=== PATIENT | female | born 1985 | race Caucasian/White ===

== ENCOUNTER 2019-02-09 19:57 | Emergency (ER) | payer MEDICAID, OTHER ==
[~2019-02-09] VITALS: Ht 167.6 cm; Wt 111.1 kg
[~2019-02-09 19:57] MED LIST: AMOX500C2; CODE1CAP36; HYDR-3720 PO; MTC10T; NAPR-248; NAPR220T76 PO; OMEP20CA6
--- OUTSIDE RECORDS SUMMARY | 2019-02-09 20:03 | XMS REPORT | CCD ---
Author Author LISETH RENTERIA Organization Unknown Address [address] [facility] [address] [place], [place] [id number] Care Team Providers Care Supervisory Clerk Name Role Phone VIOLETA ALONZO, ABUNDIO JACOBS Attphys Vital Signs Vital Sign Value Unit Date/Time Recent/Initial? Weight Measured 320 lbs 09/04/2015 11:17 Initial VS Height 66 in 09/04/2015 11:17 Initial VS BMI (Body Mass Index) 51.65 kg/m^2 09/04/2015 11:17 Initial VS BSA (Body Surface Area) 2.6 m^2 09/04/2015 11:17 Initial VS BP Systolic 99 mmHg 09/10/2015 09:50 Initial VS BP Diastolic 42 mmHg 09/10/2015 09:50 Initial VS Respiratory Rate 18 bpm 09/10/2015 09:50 Initial VS Heart Rate 98 bpm 09/10/2015 09:50 Initial VS O2 % BldC Oximetry 95 % 09/10/2015 09:50 Initial VS BP Systolic 110 mmHg 09/10/2015 10:10 Most Recent VS BP Diastolic 59 mmHg 09/10/2015 10:10 Most Recent VS Respiratory Rate 17 bpm 09/10/2015 10:10 Most Recent VS Heart Rate 85 bpm 09/10/2015 10:10 Most Recent VS O2 % BldC Oximetry 96 % 09/10/2015 10:10 Most Recent VS Allergies Allergy Code Allergy Type Reaction Status No Known Drug Allergies 0 No known drug allergies Active Procedures Procedure Code Procedure Type Date Neuroplasty and/or transposition; ulnar nerve [place] elbow; (-[place] [address] CPT 09/10/2015 BEDSIDE GLUCOSE 22537781 SNOMED CT 09/10/2015 History of Immunizations Immunization Code Date DTP 05/22/1984 DTP 07/17/1984 DTP 07/07/1987 DTP 02/02/1988 OPV 02 05/22/1984 OPV 02 07/17/1984 OPV 02 07/07/1987 OPV 02 02/02/1988 MMR 03 07/07/1987 MMR 03 04/05/1994 Td (adult), adsorbed 03/13/2000 influenza, split (incl. purified surface antigen) 15 09/29/2009 Novel [id number], preservative-free 126 09/29/2009 Problems Problem Code Start Date Resolved Date Status HISTORY OF HYSTERECTOMY, SUPRACERVICAL V8802 Active Results BEDSIDE GLUCOSE - Collect Date/Time: 09/10/2015 07:23 Test Name Code Test Result Test Units Test Ref Range GLUCOSE POCT 111 MG/DL L=70 H=100 Active Medications Medication Code Dose Units Frequency Route Modification Start Date/Time CEFAZOLIN [ANCEF] IV 3GM (PREDEFINED) 263220 X1 IVPB 09/10/2015 06:00 ~~ CEFAZOLIN (ANCEF) INJ : 10 GM VIAL 675387 4132 MG ~~ NACL 0.9%: 100 ML BAG 339775 100 ML ~~ REFRIGERATE!!! [id number] 1 EA Medications Administered During Visit Unknown or Not Available. Encounters Encounter Diagnosis Diagnosis Code Start Date Lesion of ulnar nerve, left upper limb G5622 09/10/2015 Social History Smoking Status Code Start Date End Date Current every day smoker 301804391 Patient Decision Aids Patient Decision Aid HAND SURGERY; AFTER THE PROCEDURE Discharge Instructions You were admitted to [facility] on 09/10/2015 with a principal diagnosis of Lesion of ulnar nerve, left upper limb. You had the following procedures done: REVISE ULNAR NERVE AT ELBOW You were discharged from [facility] on 09/10/2015. Should you have any questions prior to discharge, please contact a member of your healthcare team. If you have left the hospital and have any questions, please contact your primary care physician. Chief Complaint and Reason For Visit Chief Complaint Date of Onset ORT ULNAR NERVE TRANSPOSITION LEFT Function Status Unknown or Not Available. Plan of Care Unknown or Not Available. Referral/Transition of Care Unknown or Not Available.
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
--- OUTSIDE RECORDS SUMMARY | 2019-02-09 20:03 | XMS REPORT ---
Author Author FRANNY FARLEY Organization [facility] Address [address] [place] [address] Care Team Providers Care Supervisor Shaving And Splitting Name Role Phone FRANNY FARLEY Unavailable PROBLEMS Type Condition ICD9-CM Code TOD83-SK Code Onset Dates Condition Status SNOMED Code Problem Posttraumatic stress disorder F43.10 Active 68736790 Problem Major depression, recurrent F33.9 Active 68285159 Problem Type 2 diabetes mellitus without complication, without long-term current use of insulin E11.9 Active 556375039 Problem Heroin use disorder, severe, 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 Active 23963829 Problem Panic disorder F41.0 Active 764494794 Problem Schizophrenia F20.9 Active 24401442 Problem Dyslexia R48.0 Active 44598076 Problem Schizoaffective disorder, bipolar type F25.0 Active 38867806 ALLERGIES No Information ENCOUNTERS Encounter Location Date Diagnosis [place] [id number] [place] [address] 53756- 0014 Oct, [facility] [place] [facility] [id number] [place] [address] 13151- 1895 Sep, [facility] [place] [facility] [id number] [place] [address] 39166- 6369 Jul, [facility] [place] [facility] [id number] [place] [address] 54587- 2583 24 Jul, 2018 [facility] [place] [facility] [address] 7[address]86- 7707 Jul, Schizophrenia F20.9 ; Posttraumatic stress disorder F43.10 ; Panic disorder F41.0 and Heroin use disorder, severe, 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 [facility] [place] [facility] [id number] [place] [address] 01936- 3064 Jun, History of lumbar laminectomy Z98.890 and Back pain at L4- L5 level M54.5 [place] [id number] [place] [address] 43447- 5714 May, Contusion of abdominal wall, initial encounter S30.1XXA [place] [id number] [place] [address] 31010- 9033 Apr, Schizophrenia F20.9 ; Posttraumatic stress disorder F43.10 ; Panic disorder F41.0 and Heroin use disorder, severe, 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 [place] [id number] [place] [address] 73566- 5152 February, [place] [address] 99376- 2618 February, Schizophrenia F20.9 ; Posttraumatic stress disorder F43.10 ; Panic disorder F41.0 ; Heroin use disorder, severe, 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 and BMI 40.0-44.9, adult Z68.41 [place] [id number] [place] [address] 40017- 6394 Jan, [address] [address]- 8498 Jan, Type 2 diabetes mellitus without complication, without long- term current use of insulin E11.9 [place] [id number] [place] [address] 85599- 4768 Jan, Major depression, recurrent F33.9 [place] [id number] [place] [address] 98727- 3464 Jan, Establishing care with new doctor, encounter for Z76.89 ; Major depression, recurrent F33.9 ; Posttraumatic stress disorder F43.10 ; Schizoaffective disorder, bipolar type F25.0 ; Heroin use disorder, severe, 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 ; Unexplained weight loss R63.4 and Type 2 diabetes mellitus without complication, without long-term current use of insulin E11.9 [place] [id number] [place] [address] 82421- 4739 Nov, [place] [address] [place] [address] 74294- 9483 Oct, Schizophrenia F20.9 ; Posttraumatic stress disorder F43.10 ; Panic disorder F41.0 and Heroin use disorder, severe, 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 [place] [address] [place] [address] 51181- 1122 Jul, Schizophrenia F20.9 [place] [id number] [place] [address] 99459- 5833 Jun, Posttraumatic stress disorder F43.10 ; Schizophrenia F20.9 ; Panic disorder F41.0 ; Dyslexia R48.0 and Heroin use disorder, severe, 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 [place] [id number] [place] [address] 06365- 1763 May, Posttraumatic stress disorder F43.10 ; Schizoaffective disorder, bipolar type F25.0 ; Panic disorder F41.0 ; Dyslexia R48.0 and Heroin use disorder, severe, 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 [place] [id number] [place] [address] 47761- 1313 Apr, Posttraumatic stress disorder F43.10 ; Schizoaffective disorder, bipolar type F25.0 ; Panic disorder F41.0 ; Dyslexia R48.0 and Heroin use disorder, severe, 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 [place] [address] [place] [address] 26433- 6533 Mar, Schizophrenia F20.9 ; Posttraumatic stress disorder F43.10 and Major depression, recurrent F33.9 [place] [id number] [place] [address] 20770- 9601 February, [place] [id number] [place] [address] 42811- 2274 Oct, Major depression, recurrent F33.9 [place] [id number] [place] [address] 18136- 1978 Oct, Major depression, recurrent F33.9 ; Schizophrenia F20.9 and Posttraumatic stress disorder F43.10 [facility] [place] [facility] [id number] [place] [address] 16093- 4169 Sep, Posttraumatic stress disorder F43.10 ; Schizophrenia F20.9 and Major depressive disorder, recurrent episode with anxious distress F33.9 [facility] [place] [facility] [id number] [place] [address] 06715- 2631 Sep, Schizophrenia F20.9 [facility] [place] [facility] [id number] [place] [address] 44230- 5487 Sep, [facility] [place] [facility] [id number] [place] [address] 13491- 5180 Aug, Posttraumatic stress disorder F43.10 ; Schizophrenia F20.9 and Major depression, recurrent F33.9 [facility] [place] [facility] [id number] [place] [address] 46579- 1574 Jun, Posttraumatic stress disorder F43.10 ; Schizophrenia F20.9 and Major depression, recurrent F33.9 [facility] [place] [facility] [id number] [place] [address] 31731- 6599 May, Posttraumatic stress disorder F43.10 ; Schizophrenia F20.9 and Major depression, recurrent F33.9 [facility] [place] [facility] [address], [place] [address]- 0485 Apr, Posttraumatic stress disorder F43.10 ; Schizophrenia F20.9 and Major depression, recurrent F33.9 [facility] [place] [facility] [address] [place] [address] 95576- 4133 February, Posttraumatic stress disorder F43.10 ; Schizophrenia F20.9 and Major depression, recurrent F33.9 [facility] [place] [facility] [address] [place] [address] 74450- 3007 Jan, Posttraumatic stress disorder F43.10 ; Schizophrenia F20.9 and Major depression, recurrent F33.9 [facility] [place] [facility] [address] [address]- 4642 Nov, Posttraumatic stress disorder F43.10 and Schizophrenia F20.9 [facility] [place] [facility] [address], [place] [address]- 2114 Sep, [facility] [place] [facility] [address] [address]- 2314 Aug, Posttraumatic stress disorder F43.10 and Schizophrenia F20.9 [facility] [place] [facility] [address] [place] [address] 770952- 4669 Jul, Posttraumatic stress disorder F43.10 and Schizophrenia F20.9 [facility] [place] [facility] [id number] [place] [address] 401870- 0475 Jul, [facility] [place] [facility] [address] [place] [address] 34779- 3548 May, [facility] [place] [facility] [id number] [place] [address] 20470- 8862 May, PTSD (post-traumatic stress disorder) 309.81 ; Depressive disorder, not elsewhere classified 311 and Paranoid schizophrenia 295.30 [facility] [place] [facility] [address] [place] [address] 14573- 1226 Apr, Paranoid schizophrenia 295.30 ; Depressive disorder, not elsewhere classified 311 and PTSD (post-traumatic stress disorder) 309.81 [facility] [place] [facility] [address] [address]- 6248 Mar, [facility] [place] [facility] [address] [place] [address] 62474040- 9531 Mar, Paranoid schizophrenia 295.30 ; Panic disorder with 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 ; PTSD (post-traumatic stress disorder) 309.81 and Depressive disorder, not elsewhere classified 311 [facility] [place] [facility] [address] [address] 2918 Nov, [facility] [place] [facility] [address], [place] [address]- 6082 Apr, [facility] [place] [facility] [address], [place] [address]- 6472 Jan, [facility] [place] [facility] [address], [place] [address]- 1510 Oct, [facility] [place] [facility] [address], [place] [address]- 0952 Sep, [facility] [place] [facility] [address] [place] [address] 33878- 0185 Sep, [facility] [place] [facility] [address], [place] [address]- 3219 Aug, [facility] [place] [facility] [address] [place] [address] 33049- 9672 Aug, [facility] [place] [facility] [address], [place] [address]- 3581 February, [facility] [place] [facility] [address], [place] [address]- 0931 Nov, IMMUNIZATIONS No Known Immunizations SOCIAL HISTORY Never Assessed REASON FOR VISIT Routine nurse call PLAN OF CARE VITAL SIGNS MEDICATIONS [...]
--- OUTSIDE RECORDS SUMMARY | 2019-02-09 20:03 | XMS REPORT ---
Author Author FRANNY FARLEY Organization [facility] IN [facility] Address [address] [place] [address] Care Team Providers Care Underground Supervisor Name Role Phone FRANNY FARLEY Unavailable PROBLEMS Type Condition ICD9-CM Code JLQ11-SL Code Onset Dates Condition Status SNOMED Code Problem Posttraumatic stress disorder F43.10 Active 17942113 Problem Major depression, recurrent F33.9 Active 36841063 Problem Type 2 diabetes mellitus without complication, without long-term current use of insulin E11.9 Active 741512176 Problem Heroin use disorder, severe, 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 Active 20729294 Problem Panic disorder F41.0 Active 222057004 Problem Schizophrenia F20.9 Active 95851923 Problem Dyslexia R48.0 Active 92669167 Problem Schizoaffective disorder, bipolar type F25.0 Active 41000691 ALLERGIES No Information ENCOUNTERS Encounter Location Date Diagnosis [facility] [id number] [place] [address] 37984- 8395 Oct, [facility] [id number] [place] [address] 37513- 2598 Aug, [facility] [id number] [place] [address] 81981- 3112 Jul, [facility] [id number] [place] [address] 74385- 0200 24 Jul, 2018 [facility] [id number] [place] [address] 28865- 4333 Jul, Schizophrenia F20.9 ; Posttraumatic stress disorder F43.10 ; Panic disorder F41.0 and Heroin use disorder, severe, 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 [facility] [id number] [place] [address] 36514- 4828 Jun, History of lumbar laminectomy Z98.890 and Back pain at L4- L5 level M54.5 [place] [id number] [place] [address] 26691- 1493 May, Contusion of abdominal wall, initial encounter S30.1XXA [place] [facility] [id number] [place] [address] 28348- 0190 Apr, Schizophrenia F20.9 ; Posttraumatic stress disorder F43.10 ; Panic disorder F41.0 and Heroin use disorder, severe, 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 [place] [id number] [place] [address] 37459- 9810 February, [place] [address] 05470- 7949 February, Schizophrenia F20.9 ; Posttraumatic stress disorder F43.10 ; Panic disorder F41.0 ; Heroin use disorder, severe, 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 and BMI 40.0-44.9, adult Z68.41 [place] [id number] [place] [address] 41995- 6648 Jan, [address] 96122- 6470 Jan, Type 2 diabetes mellitus without complication, without long- term current use of insulin E11.9 [facility] [facility] [id number] [place] [address] 81655- 5574 Jan, Major depression, recurrent F33.9 [place] [id number] [place] [address] 48998- 3179 Jan, Establishing care with new doctor, encounter for Z76.89 ; Major depression, recurrent F33.9 ; Posttraumatic stress disorder F43.10 ; Schizoaffective disorder, bipolar type F25.0 ; Heroin use disorder, severe, 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 ; Unexplained weight loss R63.4 and Type 2 diabetes mellitus without complication, without long-term current use of insulin E11.9 [place] [id number] [place] [address] 48288- 1786 Nov, [place] [id number] [place] [address] 78685- 3447 Oct, Schizophrenia F20.9 ; Posttraumatic stress disorder F43.10 ; Panic disorder F41.0 and Heroin use disorder, severe, 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 [place] [id number] [place] [address] 90746- 7414 Jul, Schizophrenia F20.9 [place] [id number] [place] [address] 17246- 0011 Jun, Posttraumatic stress disorder F43.10 ; Schizophrenia F20.9 ; Panic disorder F41.0 ; Dyslexia R48.0 and Heroin use disorder, severe, 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 [place] [id number] [place] [address] 43218- 2555 May, Posttraumatic stress disorder F43.10 ; Schizoaffective disorder, bipolar type F25.0 ; Panic disorder F41.0 ; Dyslexia R48.0 and Heroin use disorder, severe, 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 [place] [id number] [place] [address] 55590- 9523 Apr, Posttraumatic stress disorder F43.10 ; Schizoaffective disorder, bipolar type F25.0 ; Panic disorder F41.0 ; Dyslexia R48.0 and Heroin use disorder, severe, 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 [place] [id number] [place] [address] 15755- 5763 Mar, Schizophrenia F20.9 ; Posttraumatic stress disorder F43.10 and Major depression, recurrent F33.9 [place] [id number] [place] [address] 47397- 4792 February, [place] [id number] [place] [address] 07656- 6296 Oct, Major depression, recurrent F33.9 [place] [id number] [place] [address] 28560- 7742 Oct, Major depression, recurrent F33.9 ; Schizophrenia F20.9 and Posttraumatic stress disorder F43.10 [facility] [id number] [place] [address] 85259- 7082 Sep, Posttraumatic stress disorder F43.10 ; Schizophrenia F20.9 and Major depressive disorder, recurrent episode with anxious distress F33.9 [facility] [id number] [place] [address] 39718- 9044 Sep, Schizophrenia F20.9 [facility] [id number] [place] [address] 26777- 9526 Sep, [facility] [id number] [place] [address] 83598- 5827 Aug, Posttraumatic stress disorder F43.10 ; Schizophrenia F20.9 and Major depression, recurrent F33.9 [facility] [id number] [place] [address] 60895- 7499 Jun, Posttraumatic stress disorder F43.10 ; Schizophrenia F20.9 and Major depression, recurrent F33.9 [facility] [id number] [place] [address] 64000- 6512 May, Posttraumatic stress disorder F43.10 ; Schizophrenia F20.9 and Major depression, recurrent F33.9 [facility] [address] [address]- 2338 Apr, Posttraumatic stress disorder F43.10 ; Schizophrenia F20.9 and Major depression, recurrent F33.9 [facility] [id number] [place] [address] 33318- 2221 February, Posttraumatic stress disorder F43.10 ; Schizophrenia F20.9 and Major depression, recurrent F33.9 [facility] [id number] [place] [address] 59695- 6150 Jan, Posttraumatic stress disorder F43.10 ; Schizophrenia F20.9 and Major depression, recurrent F33.9 [facility] [id number] [address]- 9651 Nov, Posttraumatic stress disorder F43.10 and Schizophrenia F20.9 [facility] [address] [place] [address]- 2536 Sep, [facility] [id number] [place] [address]- 7842 Aug, Posttraumatic stress disorder F43.10 and Schizophrenia F20.9 [facility] [id number] [place] [address] 275450- 9797 Jul, Posttraumatic stress disorder F43.10 and Schizophrenia F20.9 [facility] [id number] [place] [address] 556862- 9860 Jul, [facility] [id number] [place] [address] 66431- 1729 May, [facility] [id number] [place] [address] 67175- 2866 May, PTSD (post-traumatic stress disorder) 309.81 ; Depressive disorder, not elsewhere classified 311 and Paranoid schizophrenia 295.30 [facility] [id number] [place] [address] 59665- 7590 Apr, Paranoid schizophrenia 295.30 ; Depressive disorder, not elsewhere classified 311 and PTSD (post-traumatic stress disorder) 309.81 [facility] [address] [address]- 1011 Mar, [facility] [id number] [place] [address] 30707134- 7077 Mar, Paranoid schizophrenia 295.30 ; Panic disorder with 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 ; PTSD (post-traumatic stress disorder) 309.81 and Depressive disorder, not elsewhere classified 311 [facility] [id number] [address] Nov, [facility] [id number] [place] [address]- 1586 Apr, [facility] [address] [place] [address]- 7166 Jan, [facility] [id number] [place] [address]- 6598 Oct, [facility] [id number] [place] [address]- 7294 Sep, [facility] [id number] [place] [address] 64711- 4517 Sep, [facility] [id number] [place] [address]- 6239 Aug, [facility] [address] [place] [address]- 2866 Aug, [facility] [id number] [place] [address]- 5531 February, [facility] [id number] [place] [address]- 6230 Nov, IMMUNIZATIONS No Known Immunizations SOCIAL HISTORY Never Assessed REASON FOR VISIT FY only PLAN OF CARE VITAL SIGNS MEDICATIONS Unknown [...]
--- OUTSIDE RECORDS SUMMARY | 2019-02-09 20:03 | XMS REPORT ---
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 Active 85025329 Problem Panic disorder F41.0 Active 879926540 Problem Schizophrenia F20.9 Active 79989844 Problem Dyslexia R48.0 Active 09925502 Problem Schizoaffective disorder, bipolar type F25.0 Active 22494808 ALLERGIES No Information ENCOUNTERS Encounter Location Date Diagnosis [facility] [place] [id number] [place] [address] 00099- 0452 Oct, [facility] [place] [id number] [place] [address] 97719- 8024 Sep, [facility] [place] [id number] [place] [address] 77201- 4885 Sep, [facility] [place] [id number] [place] [address] 28192- 4649 Sep, [facility] [place] [id number] [place] [address] 27877- 2714 Jul, [facility] [place] [id number] [place] [address] 34421- 1340 Jul, [facility] [place] [id number] [place] [address] 92404- 7326 Jul, Schizophrenia F20.9 ; Posttraumatic stress disorder F43.10 ; Panic disorder F41.0 and Heroin use disorder, severe, 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 [facility] [address] 81458- 0518 Jun, History of lumbar laminectomy Z98.890 and Back pain at L4- L5 level M54.5 [place] [address] 47948- 2452 May, Contusion of abdominal wall, initial encounter S30.1XXA [place] [address] 42384- 3217 Apr, Schizophrenia F20.9 ; Posttraumatic stress disorder F43.10 ; Panic disorder F41.0 and Heroin use disorder, severe, 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 [place] [address] 08614- 0457 February, [place] [address] 34837- 6043 February, Schizophrenia F20.9 ; Posttraumatic stress disorder F43.10 ; Panic disorder F41.0 ; Heroin use disorder, severe, 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 and BMI 40.0-44.9, adult Z68.41 [place] [id number] [place] [address] 77134- 7738 Jan, [place] [address] 14925- 1723 Jan, Type 2 diabetes mellitus without complication, without long- term current use of insulin E11.9 [facility] [id number] [place] [address] 87640- 6038 Jan, Major depression, recurrent F33.9 [place] [address] 91060- 8809 Jan, Establishing care with new doctor, encounter for Z76.89 ; Major depression, recurrent F33.9 ; Posttraumatic stress disorder F43.10 ; Schizoaffective disorder, bipolar type F25.0 ; Heroin use disorder, severe, 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 ; Unexplained weight loss R63.4 and Type 2 diabetes mellitus without complication, without long-term current use of insulin E11.9 [place] [id number] [place] [address] 87677- 9245 09 Nov, 2017 [place] [id number] [place] [address] 67814- 5698 Oct, Schizophrenia F20.9 ; Posttraumatic stress disorder F43.10 ; Panic disorder F41.0 and Heroin use disorder, severe, 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 [place] [id number] [place] [address] 69841- 1715 Jul, Schizophrenia F20.9 [place] [id number] [place] [address] 73114- 5257 Jun, Posttraumatic stress disorder F43.10 ; Schizophrenia F20.9 ; Panic disorder F41.0 ; Dyslexia R48.0 and Heroin use disorder, severe, 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 [place] [id number] [place] [address] 49108- 1172 May, Posttraumatic stress disorder F43.10 ; Schizoaffective disorder, bipolar type F25.0 ; Panic disorder F41.0 ; Dyslexia R48.0 and Heroin use disorder, severe, 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 [place] [id number] [place] [address] 08545- 7787 Apr, Posttraumatic stress disorder F43.10 ; Schizoaffective disorder, bipolar type F25.0 ; Panic disorder F41.0 ; Dyslexia R48.0 and Heroin use disorder, severe, 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 [place] [id number] [place] [address] 00381- 7675 Mar, Schizophrenia F20.9 ; Posttraumatic stress disorder F43.10 and Major depression, recurrent F33.9 [place] [id number] [place] [address] 28373- 2029 February, [facility] [place] [address] [place] [address]- 9757 Oct, Major depression, recurrent F33.9 [facility] [place] [address] [place] [address]- 7138 Oct, Major depression, recurrent F33.9 ; Schizophrenia F20.9 and Posttraumatic stress disorder F43.10 [facility] [place] [id number] [place] [address] 19058- 6347 Sep, Posttraumatic stress disorder F43.10 ; Schizophrenia F20.9 and Major depressive disorder, recurrent episode with anxious distress F33.9 [facility] [place] [id number] [place] [address] 57591- 2643 Sep, Schizophrenia F20.9 [facility] [place] [address], [place] [address]- 4238 Sep, [facility] [place] [id number] [place] [address] 94108- 4294 Aug, Posttraumatic stress disorder F43.10 ; Schizophrenia F20.9 and Major depression, recurrent F33.9 [facility] [place] [address], [place] [address]- 9266 Jun, Posttraumatic stress disorder F43.10 ; Schizophrenia F20.9 and Major depression, recurrent F33.9 [facility] [place] [address], [place] [address]- 7880 May, Posttraumatic stress disorder F43.10 ; Schizophrenia F20.9 and Major depression, recurrent F33.9 [facility] [place] [address], [place] [address]- 2766 Apr, Posttraumatic stress disorder F43.10 ; Schizophrenia F20.9 and Major depression, recurrent F33.9 [facility] [place] [address] [place] [address]- 5273 February, Posttraumatic stress disorder F43.10 ; Schizophrenia F20.9 and Major depression, recurrent F33.9 [facility] [place] [address], [place] [address]- 1032 Jan, Posttraumatic stress disorder F43.10 ; Schizophrenia F20.9 and Major depression, recurrent F33.9 [facility] [place] [id number] [place] [address] 42303- 4358 Nov, Posttraumatic stress disorder F43.10 and Schizophrenia F20.9 [place] [id number] [place] [address] 41853- 2342 Sep, [place] [id number] [place] [address] 52024- 9950 Aug, Posttraumatic stress disorder F43.10 and Schizophrenia F20.9 [place] [id number] [place] [address] 14569- 7598 Jul, Posttraumatic stress disorder F43.10 and Schizophrenia F20.9 [place] [id number] [place] [address] 61940- 9315 Jul, [place] [id number] [place] [address] 65790- 5397 May, [place] [id number] [place] [address] 33796- 5977 May, PTSD (post-traumatic stress disorder) 309.81 ; Depressive disorder, not elsewhere classified 311 and Paranoid schizophrenia 295.30 [place] [id number] [place] [address] 55142- 9872 Apr, Paranoid schizophrenia 295.30 ; Depressive disorder, not elsewhere classified 311 and PTSD (post-traumatic stress disorder) 309.81 [place] [id number] [place] [address] 04041- 8452 Mar, [place] [id number] [place] [address] 51846- 7632 Mar, Paranoid schizophrenia 295.30 ; Panic disorder with 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 ; PTSD (post-traumatic stress disorder) 309.81 and Depressive disorder, not elsewhere classified [address] [place] [id number] [place] [address]- 3570 18 Nov, 2010 [facility] [place] [address] [place] [address]- 2250 Apr, [facility] [place] [id number] 3579 Jan, [facility] [place] [id number] [place] [address] 74516- 4560 Oct, [facility] [place] [id number] [place] [address] 40651- 0470 Sep, [facility] [place] [id number] [place] [address] 342998- 9494 Sep, [facility] [place] [id number] [place] [address] 07158- 8372 Aug, [facility] [place] [address], [place] [address]- 3201 Aug, [facility] [place] [id number], [place] [address]- 2987 February, [facility] [place] [id number] [place] [address]- 2687 Nov, IMMUNIZATIONS No Known Immunizations SOCIAL HISTORY Never Assessed REASON FOR VISIT Referral PLAN OF CARE VITAL SIGNS MEDICATIONS Unknown [...]
--- OUTSIDE RECORDS SUMMARY | 2019-02-09 20:04 | XMS REPORT ---
Author Author FRANNY FARLEY [facility] Address [address] [place] [address] Care Team Providers Care Wet Suit Gluer Name Role Phone FRANNY FARLEY Unavailable PROBLEMS ALLERGIES No Known Allergies ENCOUNTERS IMMUNIZATIONS No Known Immunizations SOCIAL HISTORY No smoking Hx information available REASON FOR VISIT PLAN OF CARE VITAL SIGNS MEDICATIONS RESULTS No Results PROCEDURES No Known procedures INSTRUCTIONS MEDICATIONS ADMINISTERED No Known Medications MEDICAL (GENERAL) HISTORY
--- OUTSIDE RECORDS SUMMARY | 2019-02-09 20:04 | XMS REPORT ---
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 Active 86604033 Problem Panic disorder F41.0 Active 536208950 Problem Schizophrenia F20.9 Active 15018695 Problem Dyslexia R48.0 Active 34385477 Problem Schizoaffective disorder, bipolar type F25.0 Active 71234558 ALLERGIES No Information ENCOUNTERS Encounter Location Date Diagnosis [place] [address] [address] Jul, [place] [address] [place] [id number] [place] [address] 52582- 4295 May, Contusion of abdominal wall, initial encounter S30.1XXA [place] [address] [place] [id number] [place] [address]90- 1967 Apr, Schizophrenia F20.9 ; Posttraumatic stress disorder F43.10 ; Panic disorder F41.0 and Heroin use disorder, severe, 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 [place] [address] [place] [id number] [place] [address] 05436- 3194 February, [place] [address] [place] [id number] [place] [address] 93116- 8156 February, Schizophrenia F20.9 ; Posttraumatic stress disorder F43.10 ; Panic disorder F41.0 ; Heroin use disorder, severe, 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 and BMI 40.0-44.9, adult Z68.41 [place] [address] [place] [id number] [place] [address] 80943- 3621 Jan, [place] [address] [place] [id number] [place] [address] 68104- 2832 Jan, Type 2 diabetes mellitus without complication, without long- term current use of insulin E11.9 [place] [address] [place] [id number] [place] [address] 15980- 6417 Jan, Major depression, recurrent F33.9 [place] [id number] [place] [address] 11515- 6045 Jan, Establishing care with new doctor, encounter for Z76.89 ; Major depression, recurrent F33.9 ; Posttraumatic stress disorder F43.10 ; Schizoaffective disorder, bipolar type F25.0 ; Heroin use disorder, severe, 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 ; Unexplained weight loss R63.4 and Type 2 diabetes mellitus without complication, without long-term current use of insulin E11.9 [place] [address] [place] [id number] [place] [address] 54105- 8981 Nov, [place] [address] [place] [id number] [place] [address] 14268- 4870 Oct, Schizophrenia F20.9 ; Posttraumatic stress disorder F43.10 ; Panic disorder F41.0 and Heroin use disorder, severe, 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 [place] [address] [place] [address] 28241- 8439 Jul, Schizophrenia F20.9 [place] [address] [place] [id number] [place] [address] 78413- 8029 Jun, Posttraumatic stress disorder F43.10 ; Schizophrenia F20.9 ; Panic disorder F41.0 ; Dyslexia R48.0 and Heroin use disorder, severe, 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 [place] [address] [place] [id number] [place] [address] 40358- 7715 May, Posttraumatic stress disorder F43.10 ; Schizoaffective disorder, bipolar type F25.0 ; Panic disorder F41.0 ; Dyslexia R48.0 and Heroin use disorder, severe, 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 [facility] [address] [address] Apr, Posttraumatic stress disorder F43.10 ; Schizoaffective disorder, bipolar type F25.0 ; Panic disorder F41.0 ; Dyslexia R48.0 and Heroin use disorder, severe, in sustained remission F1.21 [facility] [address] [address] 4[address] Mar, Schizophrenia F20.9 ; Posttraumatic stress disorder F43.10 and Major depression, recurrent F33.9 [facility] [id number] [address] 9410 February, [facility] [address] [place] [id number] [place] [address] 54364- 6275 Oct, Major depression, recurrent F33.9 [facility] [address] [place] [id number] [place] [address] 62625- 3152 Oct, Major depression, recurrent F33.9 ; Schizophrenia F20.9 and Posttraumatic stress disorder F43.10 [facility] [address] [address]- 8332 Sep, Posttraumatic stress disorder F43.10 ; Schizophrenia F20.9 and Major depressive disorder, recurrent episode with anxious distress F33.9 [facility] [address] [address]- 1689 Sep, Schizophrenia F20.9 [facility] [address] [place] [id number] [place] [address] 02731- 9113 Sep, [facility] [address] [place] [id number] [place] [address] 63758- 5296 Aug, Posttraumatic stress disorder F43.10 ; Schizophrenia F20.9 and Major depression, recurrent F33.9 [facility] [address] [address]- 4632 Jun, Posttraumatic stress disorder F43.10 ; Schizophrenia F20.9 and Major depression, recurrent F33.9 [facility] [address], [place] [address]- 9843 May, Posttraumatic stress disorder F43.10 ; Schizophrenia F20.9 and Major depression, recurrent F33.9 [facility] [address] [place] [address] 90789- 6319 Apr, Posttraumatic stress disorder F43.10 ; Schizophrenia F20.9 and Major depression, recurrent F33.9 [facility] [address] [place] [id number] [place] [address] 74170- 0393 February, Posttraumatic stress disorder F43.10 ; Schizophrenia F20.9 and Major depression, recurrent F33.9 [facility] [address] [place] [id number] [place] [address] 17953- 2532 Jan, Posttraumatic stress disorder F43.10 ; Schizophrenia F20.9 and Major depression, recurrent F33.9 [facility] [address] [place] [id number] [place] [address] 27973- 6225 Nov, Posttraumatic stress disorder F43.10 and Schizophrenia F20.9 [facility] [address], [place] [address]- 5964 Sep, [facility] [address] [place] [id number] [place] [address] 63389- 2706 Aug, Posttraumatic stress disorder F43.10 and Schizophrenia F20.9 [facility] [address] [place] [id number] [address]- 2410 Jul, Posttraumatic stress disorder F43.10 and Schizophrenia F20.9 [facility] [address] [place] [address] [id number] [address]- 8978 Jul, [facility] [address] [place] [id number] [place] [address] 85110- 3923 May, [facility] [address], [place] [address]- 5[address] May, PTSD (post-traumatic stress disorder) 309.81 ; Depressive disorder, not elsewhere classified 311 and Paranoid schizophrenia 295.30 [facility] [address] [address]- 2546 Apr, Paranoid schizophrenia 295.30 ; Depressive disorder, not elsewhere classified 311 and PTSD (post-traumatic stress disorder) 309.81 [facility] [address] [place] [address] [id number] [address]- 4506 Mar, [facility] [address] [place] [id number] [place] [address] 83481- 0396 Mar, Paranoid schizophrenia 295.30 ; Panic disorder with 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 ; PTSD (post-traumatic stress disorder) 309.81 and Depressive disorder, not elsewhere classified 311 [facility] [address] [place] [id number] [place] [address] 10750- 1286 Nov, [facility] [address], [place] [address]- 0166 Apr, [facility] [address] [place] [id number] [address]- 3916 Jan, [facility] [address], [place] [address]- 4826 Oct, [facility] [address], [place] [address]- 8766 Sep, [facility] [address], [place] [address]- 2546 Sep, [facility] [address] [place] [id number] [address]- 2546 Aug, [facility] [address], [place] [address]- 2546 Aug, [facility] [address] [place] [id number] [place] [address] 90336- 6223 February, [facility] [address] [facility] [id number] [place] [address]- 3641 Nov, IMMUNIZATIONS No Known Immunizations SOCIAL HISTORY Never Assessed REASON FOR VISIT BH f/u [facility] PLAN OF CARE Activity Details Follow Up 3 Months, prn Reason: VITAL SIGNS Height 67 in 2018-04-27 Weight 254.8 lbs 2018-04-27 Heart Rate 124 bpm 2018-04-27 Respiratory Rate 20 2018-04-27 BMI 39.90 kg/m2 2018-04-27 Blood pressure systolic 114 mmHg 2018-04-27 Blood pressure diastolic 68 mmHg 2018-04-27 MEDICATIONS Medication Instructions Dosage Frequency Start Date End Date Duration Status Seroquel 300 MG Orally at bedtime 2.5 tablets 30 days Active Bydureon 2 MG Subcutaneous once weekly 1 injection Jul, 30 days Active Metformin HCl 500 mg Orally 2 times a day 1 tablet with meals 12h 30 days Active Glimepiride 2 MG Orally 2 times a day 1 tablet 12h 30 days Active RESULTS No Results PROCEDURES No Known procedures [...]
--- OUTSIDE RECORDS SUMMARY | 2019-02-09 20:04 | XMS REPORT ---
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 Active 73657022 Problem Panic disorder F41.0 Active 103094849 Problem Schizophrenia F20.9 Active 77357473 Problem Dyslexia R48.0 Active 43225453 Problem Schizoaffective disorder, bipolar type F25.0 Active 96323707 ALLERGIES No Information ENCOUNTERS Encounter Location Date Diagnosis [place] [address] [place] [id number] [place] [address] 75152- 0066 Oct, [facility] [id number] [place] [address] 41933- 7737 Aug, [facility] [address] [place] [id number] [place] [address] 31575- 9236 24 Jul, 2018 [facility] [address] [place] [id number] [place] [address] 05977- 1871 11 Jul, 2018 Schizophrenia F20.9 ; Posttraumatic stress disorder F43.10 ; Panic disorder F41.0 and Heroin use disorder, severe, 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 [facility] [address] [place] [address] 19043- 6336 19 Jun, 2018 History of lumbar laminectomy Z98.890 and Back pain at L4- L5 level M54.5 [facility] [address] [place] [id number] [place] [address] 02465- 2830 May, Contusion of abdominal wall, initial encounter S30.1XXA [place] [id number] [place] [address] 67118- 1721 Apr, Schizophrenia F20.9 ; Posttraumatic stress disorder F43.10 ; Panic disorder F41.0 and Heroin use disorder, severe, 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9 [place] [id number] [place] [address] 34037- 3027 Jan, Establishing care with new doctor, encounter for Z76.89 ; Major depression, recurrent F33.9 ; Posttraumatic stress disorder F43.10 ; Schizoaffective disorder, bipolar type F25.0 ; Heroin use disorder, severe, 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 ; Unexplained weight loss R63.4 and Type 2 diabetes mellitus without complication, without long-term current use of insulin E11.9 [place] [id number] [place] [address] 95512- 0488 Nov, [address] [place] [address]- 3080 Oct, Schizophrenia F20.9 ; Posttraumatic stress disorder F43.10 ; Panic disorder F41.0 and Heroin use disorder, severe, 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 [facility] [address], [place] [address]- 2977 Jul, Schizophrenia F20.9 [place] [address] [place] [id number] [place] [address] 92073- 8692 Jun, Posttraumatic stress disorder F43.10 ; Schizophrenia F20.9 ; Panic disorder F41.0 ; Dyslexia R48.0 and Heroin use disorder, severe, 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 [place] [address] [place] [id number] [place] [address] 40161- 2469 May, Posttraumatic stress disorder F43.10 ; Schizoaffective disorder, bipolar type F25.0 ; Panic disorder F41.0 ; Dyslexia R48.0 and Heroin use disorder, severe, 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 [place] [address], [place] [address]- 6411 Apr, Posttraumatic stress disorder F43.10 ; Schizoaffective disorder, bipolar type F25.0 ; Panic disorder F41.0 ; Dyslexia R48.0 and Heroin use disorder, severe, 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 [place] [address], [place] [address]- 8029 Mar, Schizophrenia F20.9 ; Posttraumatic stress disorder F43.10 and Major depression, recurrent F33.9 [place] [address], [place] [address]- 2618 February, [place] [address] [place] [id number] [place] [address] 59445- 1525 Oct, Major depression, recurrent F33.9 [place] [address], [place] [address]- 8597 Oct, Major depression, recurrent F33.9 ; Schizophrenia F20.9 and Posttraumatic stress disorder F43.10 [facility] [address], [place] [address]- 6952 Sep, Posttraumatic stress disorder F43.10 ; Schizophrenia F20.9 and Major depressive disorder, recurrent episode with anxious distress F33.9 [facility] [address], [place] [address]- 1316 Sep, Schizophrenia F20.9 [facility] [address] [place] [id number] [place] [address] 95769- 1238 Sep, [facility] [address] [place] [id number] [place] [address] 03173- 7453 Aug, Posttraumatic stress disorder F43.10 ; Schizophrenia F20.9 and Major depression, recurrent F33.9 [facility] [address], [place] [address]- 5734 Jun, Posttraumatic stress disorder F43.10 ; Schizophrenia F20.9 and Major depression, recurrent F33.9 [facility] [address], [place] [address]- 5047 May, Posttraumatic stress disorder F43.10 ; Schizophrenia F20.9 and Major depression, recurrent F33.9 [facility] [address], [place] [address]- 5877 Apr, Posttraumatic stress disorder F43.10 ; Schizophrenia F20.9 and Major depression, recurrent F33.9 [facility] [address], [place] [address]- 1085 February, Posttraumatic stress disorder F43.10 ; Schizophrenia F20.9 and Major depression, recurrent F33.9 [facility] [address], [place] [address]- 0678 Jan, Posttraumatic stress disorder F43.10 ; Schizophrenia F20.9 and Major depression, recurrent F33.9 [facility] [address], [place] [address]- 4050 Nov, Posttraumatic stress disorder F43.10 and Schizophrenia F20.9 [facility] [address], [place] [address]- 5912 Sep, [facility] [address] [place] [address] 47445- 6538 Aug, Posttraumatic stress disorder F43.10 and Schizophrenia F20.9 [facility] [address], [place] [address]- 5056 Jul, Posttraumatic stress disorder F43.10 and Schizophrenia F20.9 [facility] [address], [place] [address]- 7293 Jul, [facility] [address] [place] [id number] [place] [address] 316038- 9205 May, [facility] [address], [place] [address]- 1345 May, PTSD (post-traumatic stress disorder) 309.81 ; Depressive disorder, not elsewhere classified 311 and Paranoid schizophrenia 295.30 [facility] [address], [place] [address]- 6226 Apr, Paranoid schizophrenia 295.30 ; Depressive disorder, not elsewhere classified 311 and PTSD (post-traumatic stress disorder) 309.81 [facility] [address], [place] [address]- 6718 Mar, [facility] [address], [place] [address]- 9139 Mar, Paranoid schizophrenia 295.30 ; Panic disorder with 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 ; PTSD (post-traumatic stress disorder) 309.81 and Depressive disorder, not elsewhere classified 311 [facility] [address], [place] [address]- 5804 Nov, [facility] [address], [place] [address]- 0069 Apr, [facility] [address], [place] [address]- 2716 Jan, [facility] [address] [place] [id number] [address]- 9796 Oct, [facility] [address], [place] [address]- 3114 Sep, [facility] [address], [place] [address]- 5586 Sep, [facility] [address], [place] [address]- 1750 Aug, [facility] [address], [place] [address]- 4863 Aug, [facility] [address], [place] [address]- 5510 February, [facility] [address] [place] [id number] [address]- 2534 Nov, IMMUNIZATIONS No Known Immunizations SOCIAL HISTORY Never Assessed REASON FOR VISIT Prior Authorization Initiation PLAN OF CARE VITAL SIGNS MEDICATIONS Unknown [...]
--- OUTSIDE RECORDS SUMMARY | 2019-02-09 20:04 | XMS REPORT ---
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 Active 55814502 Problem Panic disorder F41.0 Active 592459212 Problem Schizophrenia F20.9 Active 70684302 Problem Dyslexia R48.0 Active 12807951 Problem Schizoaffective disorder, bipolar type F25.0 Active 41751726 ALLERGIES No Known Allergies ENCOUNTERS Encounter Location Date Diagnosis [place] [address] [address] Jul, [place] [address] 42794- 6252 Jun, History of lumbar laminectomy Z98.890 and Back pain at L4- L5 level M54.5 [place] [address] [place] [id number] [place] [address] 19869- 0433 May, Contusion of abdominal wall, initial encounter S30.1XXA [place] [address] 36920- 5868 Apr, Schizophrenia F20.9 ; Posttraumatic stress disorder F43.10 ; Panic disorder F41.0 and Heroin use disorder, severe, 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 [place] [address] 25941- 7183 February, [place] [id number] [place] [address] 10168- 8701 February, Schizophrenia F20.9 ; Posttraumatic stress disorder F43.10 ; Panic disorder F41.0 ; Heroin use disorder, severe, 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 and BMI 40.0-44.9, adult Z68.41 [place] [address] [place] [id number] [place] [address] 59111- 9522 Jan, [place] [address] [place] [id number] [place] [address] 49784- 9418 Jan, Type 2 diabetes mellitus without complication, without long- term current use of insulin E11.9 [place] [id number] [place] [address] 72295- 2629 Jan, Major depression, recurrent F33.9 [place] [id number] [place] [address] 11802- 4332 Jan, Establishing care with new doctor, encounter for Z76.89 ; Major depression, recurrent F33.9 ; Posttraumatic stress disorder F43.10 ; Schizoaffective disorder, bipolar type F25.0 ; Heroin use disorder, severe, 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 ; Unexplained weight loss R63.4 and Type 2 diabetes mellitus without complication, without long-term current use of insulin E11.9 [place] [id number] [place] [address] 23483- 6473 Nov, [place] [address] [place] [id number] [place] [address] 88180- 8771 Oct, Schizophrenia F20.9 ; Posttraumatic stress disorder F43.10 ; Panic disorder F41.0 and Heroin use disorder, severe, 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 [place] [address] [place] [id number] [place] [address] 24523- 2492 Jul, Schizophrenia F20.9 [place] [address] [place] [id number] [place] [address] 81542- 8084 Jun, Posttraumatic stress disorder F43.10 ; Schizophrenia F20.9 ; Panic disorder F41.0 ; Dyslexia R48.0 and Heroin use disorder, severe, 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 [facility] [address] [place] [id number] [place] [address] 23353- 8711 May, Posttraumatic stress disorder F43.10 ; Schizoaffective disorder, bipolar type F25.0 ; Panic disorder F41.0 ; Dyslexia R48.0 and Heroin use disorder, severe, 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 [facility] [address] [place] [id number] [place] [address] 62696- 8227 Apr, Posttraumatic stress disorder F43.10 ; Schizoaffective disorder, bipolar type F25.0 ; Panic disorder F41.0 ; Dyslexia R48.0 and Heroin use disorder, severe, 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 [place] [address] [place] [id number] [place] [address] 22400- 3543 Mar, Schizophrenia F20.9 ; Posttraumatic stress disorder F43.10 and Major depression, recurrent F33.9 [place] [address] [place] [id number] [place] [address] 42391- 6706 February, [place] [address] [place] [id number] [place] [address] 24669- 5890 Oct, Major depression, recurrent F33.9 [place] [address] [place] [id number] [place] [address] 91016- 1710 Oct, Major depression, recurrent F33.9 ; Schizophrenia F20.9 and Posttraumatic stress disorder F43.10 [facility] [id number] [place] [address] 10821- 2255 Sep, Posttraumatic stress disorder F43.10 ; Schizophrenia F20.9 and Major depressive disorder, recurrent episode with anxious distress F33.9 [facility] [id number] [place] [address] 56265- 2544 Sep, Schizophrenia F20.9 [facility] [address] [place] [id number] [place] [address] 12271- 2792 Sep, [place] [address] [address]- 0406 Aug, Posttraumatic stress disorder F43.10 ; Schizophrenia F20.9 and Major depression, recurrent F33.9 [facility] [address] [place] [address]- 5929 Jun, Posttraumatic stress disorder F43.10 ; Schizophrenia F20.9 and Major depression, recurrent F33.9 [facility] [address] [place] [id number] [place] [address] 35400- 8542 May, Posttraumatic stress disorder F43.10 ; Schizophrenia F20.9 and Major depression, recurrent F33.9 [facility] [address] [place] [id number] [place] [address] 93644- 0056 Apr, Posttraumatic stress disorder F43.10 ; Schizophrenia F20.9 and Major depression, recurrent F33.9 [facility] [address] [place] [id number] [place] [address] 59610- 8178 February, Posttraumatic stress disorder F43.10 ; Schizophrenia F20.9 and Major depression, recurrent F33.9 [facility] [id number] [place] [address] 60910- 9213 Jan, Posttraumatic stress disorder F43.10 ; Schizophrenia F20.9 and Major depression, recurrent F33.9 [facility] [address], [place] [address]- 5197 Nov, Posttraumatic stress disorder F43.10 and Schizophrenia F20.9 [facility] [address] [place] [address]- 8102 Sep, [facility] [address] [place] [id number] [place] [address] 99794- 8247 30 Aug, 2015 Posttraumatic stress disorder F43.10 and Schizophrenia F20.9 [facility] [address] [address]- 8080 Jul, Posttraumatic stress disorder F43.10 and Schizophrenia F20.9 [facility] [address] [place] [id number] 7279 Jul, [facility] [address] [address] May, [facility] [address] [place] [id number] [address] May, PTSD (post-traumatic stress disorder) 309.81 ; Depressive disorder, not elsewhere classified 311 and Paranoid schizophrenia 295.30 [facility] [address] [place] [id number] [place] [address] 322354- 9601 Apr, Paranoid schizophrenia 295.30 ; Depressive disorder, not elsewhere classified 311 and PTSD (post-traumatic stress disorder) 309.81 [facility] [address] [place] [id number] [place] [address] 609183- 4710 Mar, [facility] [address] [place] [id number] [place] [address] 07148- 1161 Mar, Paranoid schizophrenia 295.30 ; Panic disorder with 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 ; PTSD (post-traumatic stress disorder) 309.81 and Depressive disorder, not elsewhere classified 311 [facility] [address], [place] [address]- 0862 Nov, [facility] [address] [place] [address]- 0987 Apr, [facility] [address], [place] [address]- 3485 Jan, [facility] [address], [place] [address]- 5198 Oct, [facility] [address] 8954 Sep, [facility] [address] [place] [id number] 4021 Sep, [facility] [address] 3726 Aug, [facility] [address] [facility] [id number] [place] [address]- 6796 Aug, [facility] [address] [facility] [id number] [place] [address]- 1661 February, [facility] [address] [facility] [id number] [place] [address]- 6596 Nov, IMMUNIZATIONS No Known Immunizations SOCIAL HISTORY Never Assessed REASON FOR VISIT bruced area after injection -- julianne gama PLAN OF CARE Activity Details Follow Up prn Reason: VITAL SIGNS Height 67 in 2018-06-14 Weight 252.9 lbs 2018-06-14 Temperature 98.0 degrees Fahrenheit 2018-06-14 BMI 39.61 kg/m2 2018-06-14 Blood pressure systolic 120 mmHg 2018-06-14 Blood pressure diastolic 78 mmHg 2018-06-14 MEDICATIONS Medication Instructions Dosage Frequency Start Date End Date Duration Status Glimepiride 2 MG Orally 2 times a day 1 tablet 12h 30 days Active Seroquel 300 MG Orally at bedtime 2.5 tablets 30 days Active Bydureon 2 MG Subcutaneous once weekly 1 injection Jul, 30 days Active Metformin HCl 500 mg Orally 2 times a day 1 tablet with meals 12h 30 days Active RESULTS No Results [...]
--- OUTSIDE RECORDS SUMMARY | 2019-02-09 20:04 | XMS REPORT ---
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 Active 99848224 Problem Panic disorder F41.0 Active 698737888 Problem Schizophrenia F20.9 Active 17317931 Problem Dyslexia R48.0 Active 96744073 Problem Schizoaffective disorder, bipolar type F25.0 Active 10427844 ALLERGIES No Information ENCOUNTERS Encounter Location Date Diagnosis [place] [address] [place] [id number] [place] [address] 10334- 5106 Jul, [place] [address] [place] [id number] [place] [address] 88156- 7180 Apr, Schizophrenia F20.9 ; Posttraumatic stress disorder F43.10 ; Panic disorder F41.0 and Heroin use disorder, severe, 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 [facility] [id number] [place] [address] 43689- 3452 February, [place] [address] 8[address]13- 7385 February, Schizophrenia F20.9 ; Posttraumatic stress disorder F43.10 ; Panic disorder F41.0 ; Heroin use disorder, severe, 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 and BMI 40.0-44.9, adult Z68.41 [place] [address] [place] [address]- 6319 Jan, [place] [address] [place] [id number] [place] [address] 56580- 1446 Jan, Type 2 diabetes mellitus without complication, without long- term current use of insulin E11.9 [place] [address] [place] [address] 57261- 7866 Jan, Major depression, recurrent F33.9 [place] [address] [place] [id number] [place] [address] 75290- 9764 Jan, Establishing care with new doctor, encounter for Z76.89 ; Major depression, recurrent F33.9 ; Posttraumatic stress disorder F43.10 ; Schizoaffective disorder, bipolar type F25.0 ; Heroin use disorder, severe, in sustained remission F1. 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 [place] [address] [place] [address] 52403- 3823 Jul, Schizophrenia F20.9 [place] [address] [place] [id number] [place] [address] 95224- 9131 Jun, Posttraumatic stress disorder F43.10 ; Schizophrenia F20.9 ; Panic disorder F41.0 ; Dyslexia R48.0 and Heroin use disorder, severe, 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 [place] [address] [place] [id number] [place] [address] 81439- 8020 May, Posttraumatic stress disorder F43.10 ; Schizoaffective disorder, bipolar type F25.0 ; Panic disorder F41.0 ; Dyslexia R48.0 and Heroin use disorder, severe, 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 [facility] [address], [place] [address]- 0611 03 Apr, 2017 Posttraumatic stress disorder F43.10 ; Schizoaffective disorder, bipolar type F25.0 ; Panic disorder F41.0 ; Dyslexia R48.0 and Heroin use disorder, severe, 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 [facility] [address] [place] [address] 09798- 1949 Mar, Schizophrenia F20.9 ; Posttraumatic stress disorder F43.10 and Major depression, recurrent F33.9 [facility] [address] [place] [id number] [place] [address] 34303- 2108 February, [facility] [address] [place] [id number] [place] [address] 16643- 0396 Oct, Major depression, recurrent F33.9 [facility] [address] [place] [id number] [place] [address] 02982- 9124 Oct, Major depression, recurrent F33.9 ; Schizophrenia F20.9 and Posttraumatic stress disorder F43.10 [facility] [address] [place] [id number] [place] [address] 75478- 2948 Sep, Posttraumatic stress disorder F43.10 ; Schizophrenia F20.9 and Major depressive disorder, recurrent episode with anxious distress F33.9 [facility] [address], [place] [address]- 3061 Sep, Schizophrenia F20.9 [facility] [address], [place] [address]- 2289 Sep, [facility] [address] [place] [id number] [place] [address] 86527- 0546 Aug, Posttraumatic stress disorder F43.10 ; Schizophrenia F20.9 and Major depression, recurrent F33.9 [facility] [address], [place] [address]- 3622 Jun, Posttraumatic stress disorder F43.10 ; Schizophrenia F20.9 and Major depression, recurrent F33.9 [facility] [address] [place] [address] 46907- 3294 May, Posttraumatic stress disorder F43.10 ; Schizophrenia F20.9 and Major depression, recurrent F33.9 [facility] [id number] [place] [address] 37015- 6058 Apr, Posttraumatic stress disorder F43.10 ; Schizophrenia F20.9 and Major depression, recurrent F33.9 [facility] [address] [place] [id number] [place] [address] 55435- 0787 February, Posttraumatic stress disorder F43.10 ; Schizophrenia F20.9 and Major depression, recurrent F33.9 [facility] [address] [place] [id number] [place] [address] 01148- 5261 Jan, Posttraumatic stress disorder F43.10 ; Schizophrenia F20.9 and Major depression, recurrent F33.9 [facility] [address] [place] [id number] [place] [address] 73475- 7893 Nov, Posttraumatic stress disorder F43.10 and Schizophrenia F20.9 [facility] [address] [place] [id number] [place] [address] 80871- 6737 Sep, [facility] [address] [place] [id number] [place] [address] 15768- 2080 Aug, Posttraumatic stress disorder F43.10 and Schizophrenia F20.9 [facility] [address] [place] [id number] [place] [address] 12963- 2601 Jul, Posttraumatic stress disorder F43.10 and Schizophrenia F20.9 [facility] [address] [place] [id number] [place] [address] 93711- 3827 Jul, [facility] [address] [place] [id number] [place] [address] 57190- 2290 May, [facility] [address] [place] [id number] [place] [address] 43434- 4632 May, PTSD (post-traumatic stress disorder) 309.81 ; Depressive disorder, not elsewhere classified 311 and Paranoid schizophrenia 295.30 [facility] [address] 1312 Apr, Paranoid schizophrenia 295.30 ; Depressive disorder, not elsewhere classified 311 and PTSD (post-traumatic stress disorder) 309.81 [facility] [address] 6788 Mar, [facility] [address] [place] [id number] [place] [address] 53464- 4644 Mar, Paranoid schizophrenia 295.30 ; Panic disorder with 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 ; PTSD (post-traumatic stress disorder) 309.81 and Depressive disorder, not elsewhere classified 311 [facility] [address] [place] [id number] [place] [address] 22684- 5266 Nov, [facility] [address] [place] [id number] [place] [address] 698496- 3630 Apr, [facility] [address] [id number] [place] [address]- 7100 Jan, [facility] [address] [id number] [place] [address] 330337- 6765 Oct, [facility] [address] [id number]- 5846 Sep, [facility] [address] 0966 Sep, [facility] [address] 4933 Aug, [facility] [address] [place] [id number] [place] [address] 37633- 9856 Aug, [facility] [address] [id number] [place] [address] 57867- 9146 February, [facility] [address]- 3716 Nov, IMMUNIZATIONS No Known Immunizations SOCIAL HISTORY Never Assessed REASON FOR VISIT requesting return call PLAN OF CARE VITAL SIGNS [...]
--- OUTSIDE RECORDS SUMMARY | 2019-02-09 20:05 | XMS REPORT ---
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 Active 18729921 Problem Panic disorder F41.0 Active 922134840 Problem Schizophrenia F20.9 Active 57275348 Problem Dyslexia R48.0 Active 13507683 Problem Schizoaffective disorder, bipolar type F25.0 Active 65598066 ALLERGIES No Known Allergies ENCOUNTERS Encounter Location Date Diagnosis [place] [address] [address]- [address] Jul, [place] [address] [place] [id number] [place] [address] 24786- 6273 Apr, Schizophrenia F20.9 ; Posttraumatic stress disorder F43.10 ; Panic disorder F41.0 and Heroin use disorder, severe, 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 [place] [address] [place] [id number] [place] [address] 53025- 3241 February, [place] [address] 8[address]- [address]33 February, Schizophrenia F20.9 ; Posttraumatic stress disorder F43.10 ; Panic disorder F41.0 ; Heroin use disorder, severe, 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 and BMI 40.0-44.9, adult Z68.41 [address] [place] [address]- [address] Jan, [place] [address] [place] [id number] [place] [address] 86305- 9417 Jan, Type 2 diabetes mellitus without complication, without long- term current use of insulin E11.9 [place] [address] [place] [address] 08175- 0230 Jan, Major depression, recurrent F33.9 [place] [address] [place] [id number] [place] [address] 04944- 3042 Jan, Establishing care with new doctor, encounter for Z76.89 ; Major depression, recurrent F33.9 ; Posttraumatic stress disorder F43.10 ; Schizoaffective disorder, bipolar type F25.0 ; Heroin use disorder, severe, in sustained remission F1. 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 [place] [address] [place] [address] 56689- 6757 Jul, Schizophrenia F20.9 [place] [address] [place] [id number] [place] [address] 59897- 8994 Jun, Posttraumatic stress disorder F43.10 ; Schizophrenia F20.9 ; Panic disorder F41.0 ; Dyslexia R48.0 and Heroin use disorder, severe, 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 [place] [address] [place] [address] 39875- 1503 May, Posttraumatic stress disorder F43.10 ; Schizoaffective disorder, bipolar type F25.0 ; Panic disorder F41.0 ; Dyslexia R48.0 and Heroin use disorder, severe, 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 [facility] [place] [address], [place] [address] Apr, Posttraumatic stress disorder F43.10 ; Schizoaffective disorder, bipolar type F25.0 ; Panic disorder F41.0 ; Dyslexia R48.0 and Heroin use disorder, severe, 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 [facility] [place] [address] [place] [address] [id number] [place] [address] 55321- 9834 Mar, Schizophrenia F20.9 ; Posttraumatic stress disorder F43.10 and Major depression, recurrent F33.9 [facility] [place] [address] [place] [id number] [place] [address] 55322- 6790 February, [facility] [place] [address] [place] [id number] [place] [address] 91340- 2782 Oct, Major depression, recurrent F33.9 [facility] [place] [address] [place] [id number] [place] [address] 42502- 2251 Oct, Major depression, recurrent F33.9 ; Schizophrenia F20.9 and Posttraumatic stress disorder F43.10 [facility] [place] [address] [place] [address] [id number] [place] [address] 43849- 0944 Sep, Posttraumatic stress disorder F43.10 ; Schizophrenia F20.9 and Major depressive disorder, recurrent episode with anxious distress F33.9 [facility] [place] [address], [place] [address] 2670 Sep, Schizophrenia F20.9 [facility] [place] [address], [place] [address]- 7604 Sep, [facility] [place] [address] [place] [id number] [place] [address] 76522- 8032 Aug, Posttraumatic stress disorder F43.10 ; Schizophrenia F20.9 and Major depression, recurrent F33.9 [facility] [place] [address], [place] [address]- 6870 Jun, Posttraumatic stress disorder F43.10 ; Schizophrenia F20.9 and Major depression, recurrent F33.9 [facility] [place] [address], [place] [address]- 4297 May, Posttraumatic stress disorder F43.10 ; Schizophrenia F20.9 and Major depression, recurrent F33.9 [facility] [place] [address] [place] [address] 24214- 7061 Apr, Posttraumatic stress disorder F43.10 ; Schizophrenia F20.9 and Major depression, recurrent F33.9 [facility] [place] [address] [place] [address] 97757- 1728 February, Posttraumatic stress disorder F43.10 ; Schizophrenia F20.9 and Major depression, recurrent F33.9 [facility] [place] [address] [place] [id number] [place] [address] 97488- 1772 Jan, Posttraumatic stress disorder F43.10 ; Schizophrenia F20.9 and Major depression, recurrent F33.9 [facility] [place] [address] [place] [id number] [place] [address] 37271- 9988 Nov, Posttraumatic stress disorder F43.10 and Schizophrenia F20.9 [facility] [place] [address] [place] [address] [id number] [place] [address] 76577- 6494 Sep, [facility] [place] [address] [place] [id number] [place] [address] 89518- 6237 Aug, Posttraumatic stress disorder F43.10 and Schizophrenia F20.9 [facility] [place] [address] [place] [address] [id number] [place] [address] 94554- 1575 Jul, Posttraumatic stress disorder F43.10 and Schizophrenia F20.9 [facility] [place] [address], [place] [address]- 4299 Jul, [facility] [place] [address] [place] [id number] [place] [address] 97549- 3493 May, [facility] [place] [address] [place] [address] 13149- 1134 May, PTSD (post-traumatic stress disorder) 309.81 ; Depressive disorder, not elsewhere classified 311 and Paranoid schizophrenia 295.30 [facility] [place] [address] [address] Apr, Paranoid schizophrenia 295.30 ; Depressive disorder, not elsewhere classified 311 and PTSD (post-traumatic stress disorder) 309.81 [facility] [place] [address] [place] [id number] [address]- 0102 Mar, [facility] [place] [address] [place] [id number] [place] [address] 48570- 9079 Mar, Paranoid schizophrenia 295.30 ; Panic disorder with 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 ; PTSD (post-traumatic stress disorder) 309.81 and Depressive disorder, not elsewhere classified 311 [facility] [place] [address] [place] [id number] [place] [address] 57460- 7386 Nov, [facility] [place] [address] [place] [id number] [place] [address] 86223- 7238 Apr, [facility] [place] [address] [place] [id number] [address]- 5284 Jan, [facility] [place] [address] [place] [id number] [place] [address] 552983- 7486 Oct, [facility] [place] [address] [place] [id number] [address]- 2745 Sep, [facility] [place] [address], [place] [address]- 6865 Sep, [facility] [place] [address] [address] 8495 Aug, [facility] [place] [address] [place] [id number] [place] [address] 39448- 9106 Aug, [facility] [place] [address] [place] [id number] [place] [address] 10085- 2016 February, [facility] [place] [address] [address] 1636 Nov, IMMUNIZATIONS No Known Immunizations SOCIAL HISTORY Never Assessed REASON FOR VISIT Establish Care--Jean-Claude, --pt is diabetic, running low on medications. , -- every 2-3 weeks she has lost 10lbs each which is not concerning to her but she believes thats not normal. , --insurance wont pay for the [employer] PLAN OF CARE Activity Details Follow Up 3 Months, prn Reason:DM VITAL SIGNS Height 67 in 2018-01-18 Weight 251.4 lbs 2018-01-18 Temperature 98.6 degrees Fahrenheit 2018-01-18 Heart Rate 66 bpm 2018-01-18 Respiratory Rate 20 2018-01-18 BMI 39.37 kg/m2 2018-01-18 Blood pressure systolic 118 mmHg 2018-01-18 Blood pressure diastolic 82 mmHg 2018-01-18 MEDICATIONS Medication Instructions Dosage Frequency Start Date End Date Duration Status Metformin HCl 500 mg Orally 2 times a day 1 tablet with meals 12h 30 days Active Prozac 40 MG Orally Once a day 1 capsule 24h Active Bydureon 2 MG Subcutaneous once weekly 1 injection Jul, 30 days Active Glimepiride 2 MG Orally 2 times a day 1 tablet with breakfast or the first main meal of the day 12h 30 days Active Seroquel 300 MG Orally Once a day 0.5 tablet in the morning and 2.5 tablets at bedtime 24h Active RESULTS No Results PROCEDURES Procedure Date Ordered Result [facility], [facility] No Charge January 18, 2018 GLYCATED HEMOGLOBIN TEST January 18, 2018 VENIPBAYLEE, ROUTINE* January 18, 2018 INSTRUCTIONS MEDICATIONS ADMINISTERED No Known Medications MEDICAL [...]
--- OUTSIDE RECORDS SUMMARY | 2019-02-09 20:05 | XMS REPORT ---
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 Active 58236759 Problem Panic disorder F41.0 Active 063859270 Problem Schizophrenia F20.9 Active 11177359 Problem Dyslexia R48.0 Active 45086669 Problem Schizoaffective disorder, bipolar type F25.0 Active 31527808 ALLERGIES No Information ENCOUNTERS Encounter Location Date Diagnosis [place] [address] [place] [id number] [place] [address] 87302- 0199 Jul, [place] [address] [place] [id number] [place] [address] 56244- 9560 Apr, Schizophrenia F20.9 ; Posttraumatic stress disorder F43.10 ; Panic disorder F41.0 and Heroin use disorder, severe, 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 [facility] [id number] [place] [address] 69841- 6635 February, [place] [address] [address]- 5594 February, Schizophrenia F20.9 ; Posttraumatic stress disorder F43.10 ; Panic disorder F41.0 ; Heroin use disorder, severe, 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9 ; Posttraumatic stress disorder F43.10 ; Schizoaffective disorder, bipolar type F25.0 ; Heroin use disorder, severe, in sustained remission F1. 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 [place] [id number] [place] [address] 46763- 1098 Jul, Schizophrenia F20.9 [place] [address] [place] [id number] [place] [address] 17197- 7158 Jun, Posttraumatic stress disorder F43.10 ; Schizophrenia F20.9 ; Panic disorder F41.0 ; Dyslexia R48.0 and Heroin use disorder, severe, 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 [place] [address] [place] [id number] [place] [address] 37048- 8500 May, Posttraumatic stress disorder F43.10 ; Schizoaffective disorder, bipolar type F25.0 ; Panic disorder F41.0 ; Dyslexia R48.0 and Heroin use disorder, severe, 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 [facility] [address] [address]- 3726 03 Apr, 2017 Posttraumatic stress disorder F43.10 ; Schizoaffective disorder, bipolar type F25.0 ; Panic disorder F41.0 ; Dyslexia R48.0 and Heroin use disorder, severe, 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 [facility] [id number] [place] [address] 04138- 1345 Mar, Schizophrenia F20.9 ; Posttraumatic stress disorder F43.10 and Major depression, recurrent F33.9 [facility] [address] [place] [id number] [place] [address] 03277- 8892 February, [facility] [address] [place] [id number] [place] [address] 19779- 8673 Oct, Major depression, recurrent F33.9 [facility] [address] [place] [id number] [place] [address] 37694- 9380 Oct, Major depression, recurrent F33.9 ; Schizophrenia F20.9 and Posttraumatic stress disorder F43.10 [facility] [address] [place] [id number] [place] [address] 81551- 1502 Sep, Posttraumatic stress disorder F43.10 ; Schizophrenia F20.9 and Major depressive disorder, recurrent episode with anxious distress F33.9 [facility] [address] [address]- 0155 Sep, Schizophrenia F20.9 [facility] [address] [address]- 1198 Sep, [facility] [address] [place] [id number] [place] [address] 40705- 3647 Aug, Posttraumatic stress disorder F43.10 ; Schizophrenia F20.9 and Major depression, recurrent F33.9 [facility] [address] [address]- 9441 Jun, Posttraumatic stress disorder F43.10 ; Schizophrenia F20.9 and Major depression, recurrent F33.9 [facility] [address] [place] [address] 07118- 0766 May, Posttraumatic stress disorder F43.10 ; Schizophrenia F20.9 and Major depression, recurrent F33.9 [facility] [address] [place] [address] 89743- 2014 Apr, Posttraumatic stress disorder F43.10 ; Schizophrenia F20.9 and Major depression, recurrent F33.9 [facility] [address] [place] [id number] [place] [address] 66874- 9433 February, Posttraumatic stress disorder F43.10 ; Schizophrenia F20.9 and Major depression, recurrent F33.9 [facility] [address] [place] [id number] [place] [address] 56763- 1783 Jan, Posttraumatic stress disorder F43.10 ; Schizophrenia F20.9 and Major depression, recurrent F33.9 [facility] [address] [place] [id number] [place] [address] 64667- 1387 Nov, Posttraumatic stress disorder F43.10 and Schizophrenia F20.9 [facility] [address] [id number] [place] [address] 63799- 7540 Sep, [facility] [address] [place] [id number] [place] [address] 38738- 8747 Aug, Posttraumatic stress disorder F43.10 and Schizophrenia F20.9 [facility] [address] [place] [id number] [place] [address] 13170- 4431 Jul, Posttraumatic stress disorder F43.10 and Schizophrenia F20.9 [facility] [address] [place] [id number] [place] [address] 56362- 4077 Jul, [facility] [address] [id number] [place] [address] 80918- 6398 May, [facility] [address] [place] [id number] [place] [address] 72481- 6718 May, PTSD (post-traumatic stress disorder) 309.81 ; Depressive disorder, not elsewhere classified 311 and Paranoid schizophrenia 295.30 [facility] [address]- 3654 Apr, Paranoid schizophrenia 295.30 ; Depressive disorder, not elsewhere classified 311 and PTSD (post-traumatic stress disorder) 309.81 [facility] [address] [address]90 Mar, [facility] [address] [place] [id number] [place] [address] 68542- 0370 Mar, Paranoid schizophrenia 295.30 ; Panic disorder with 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 ; PTSD (post-traumatic stress disorder) 309.81 and Depressive disorder, not elsewhere classified 311 [facility] [address] [place] [id number] [place] [address] 97897- 9146 Nov, [facility] [address] [id number] [place] [address] 707722- 0270 Apr, [facility] [address] [place] [address] [address]- 1272 Jan, [facility] [address] [id number] [place] [address] 721868- 7989 Oct, [facility] [address] [place] [address] [address] 6750 Sep, [facility] [address] [address]762 Sep, [facility] [address] [place] [address] 1198 Aug, [facility] [address] [place] [id number] [place] [address] 06646- 6876 Aug, [facility] [address] [place] [id number] [place] [address] 97395- 8876 February, [facility] [address] 4736 Nov, IMMUNIZATIONS No Known Immunizations SOCIAL HISTORY Never Assessed REASON FOR VISIT med refill PLAN OF CARE VITAL SIGNS MEDICATIONS Medication Instructions Dosage Frequency Start Date End Date Duration Status Seroquel 300 MG Orally Once a day 0.5 tablet in the morning and 2.5 tablets at bedtime 24h 30 days Active Prozac 40 mg Orally Once a day 1 capsule 24h 30 days Active RESULTS No Results PROCEDURES [...]
--- OUTSIDE RECORDS SUMMARY | 2019-02-09 20:05 | XMS REPORT ---
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 Active 93744019 Problem Panic disorder F41.0 Active 704264048 Problem Schizophrenia F20.9 Active 39959086 Problem Dyslexia R48.0 Active 42256997 Problem Schizoaffective disorder, bipolar type F25.0 Active 86248763 ALLERGIES No Information ENCOUNTERS Encounter Location Date Diagnosis [place] [id number] [place] [address] 54999- 4071 Jul, [place] [id number] [place] [address] 19489- 1613 Apr, Schizophrenia F20.9 ; Posttraumatic stress disorder F43.10 ; Panic disorder F41.0 and Heroin use disorder, severe, 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 [facility] [id number] [place] [address] 02030- 9103 February, [place] [address] [address]- 8242 February, Schizophrenia F20.9 ; Posttraumatic stress disorder F43.10 ; Panic disorder F41.0 ; Heroin use disorder, severe, 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 and BMI 40.0-44.9, adult Z68.41 [place] [address] [place] [address]- 6939 Jan, [place] [id number] [place] [address] 46638- 3683 Jan, Type 2 diabetes mellitus without complication, without long- term current use of insulin E11.9 [place] [id number] [place] [address] 41512- 5859 Jan, Major depression, recurrent F33.9 [place] [id number] [place] [address] 89992- 4410 Jan, Establishing care with new doctor, encounter for Z76.89 ; Major depression, recurrent F33.9 ; Posttraumatic stress disorder F43.10 ; Schizoaffective disorder, bipolar type F25.0 ; Heroin use disorder, severe, in sustained remission F1. 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 [place] [address] [place] [address] 29720- 4941 Jul, Schizophrenia F20.9 [place] [id number] [place] [address] 38010- 3131 Jun, Posttraumatic stress disorder F43.10 ; Schizophrenia F20.9 ; Panic disorder F41.0 ; Dyslexia R48.0 and Heroin use disorder, severe, 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 [place] [id number] [place] [address] 31714- 0706 May, Posttraumatic stress disorder F43.10 ; Schizoaffective disorder, bipolar type F25.0 ; Panic disorder F41.0 ; Dyslexia R48.0 and Heroin use disorder, severe, 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 [facility] [address] [address] 89[address] 03 Apr, 2017 Posttraumatic stress disorder F43.10 ; Schizoaffective disorder, bipolar type F25.0 ; Panic disorder F41.0 ; Dyslexia R48.0 and Heroin use disorder, severe, 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 [facility] [address] [place] [address] 22915- 9681 Mar, Schizophrenia F20.9 ; Posttraumatic stress disorder F43.10 and Major depression, recurrent F33.9 [facility] [id number] [place] [address] 39426- 4213 February, [facility] [id number] [place] [address] 28452- 4147 Oct, Major depression, recurrent F33.9 [facility] [id number] [place] [address] 73791- 9115 Oct, Major depression, recurrent F33.9 ; Schizophrenia F20.9 and Posttraumatic stress disorder F43.10 [facility] [id number] [place] [address] 83899- 9950 Sep, Posttraumatic stress disorder F43.10 ; Schizophrenia F20.9 and Major depressive disorder, recurrent episode with anxious distress F33.9 [facility] [address] [address]- 8993 Sep, Schizophrenia F20.9 [facility] [address] [address]- 2274 Sep, [facility] [id number] [place] [address] 24319- 9005 Aug, Posttraumatic stress disorder F43.10 ; Schizophrenia F20.9 and Major depression, recurrent F33.9 [facility] [address] [address]- 3611 Jun, Posttraumatic stress disorder F43.10 ; Schizophrenia F20.9 and Major depression, recurrent F33.9 [facility] [address] [place] [address] 64324- 2306 May, Posttraumatic stress disorder F43.10 ; Schizophrenia F20.9 and Major depression, recurrent F33.9 [facility] [address] [place] [address] 59707- 4161 Apr, Posttraumatic stress disorder F43.10 ; Schizophrenia F20.9 and Major depression, recurrent F33.9 [facility] [id number] [place] [address] 11866- 4873 February, Posttraumatic stress disorder F43.10 ; Schizophrenia F20.9 and Major depression, recurrent F33.9 [facility] [id number] [place] [address] 10918- 4971 Jan, Posttraumatic stress disorder F43.10 ; Schizophrenia F20.9 and Major depression, recurrent F33.9 [facility] [id number] [place] [address] 98785- 7289 Nov, Posttraumatic stress disorder F43.10 and Schizophrenia F20.9 [facility] [id number] [place] [address] 72200- 7630 Sep, [facility] [id number] [place] [address] 12426- 8253 Aug, Posttraumatic stress disorder F43.10 and Schizophrenia F20.9 [facility] [id number] [place] [address] 06813- 3605 Jul, Posttraumatic stress disorder F43.10 and Schizophrenia F20.9 [facility] [id number] [place] [address] 15831- 2153 Jul, [facility] [id number] [place] [address] 51322- 3646 May, [facility] [id number] [place] [address] 16852- 0681 May, PTSD (post-traumatic stress disorder) 309.81 ; Depressive disorder, not elsewhere classified 311 and Paranoid schizophrenia 295.30 [facility] [address] [address] Apr, Paranoid schizophrenia 295.30 ; Depressive disorder, not elsewhere classified 311 and PTSD (post-traumatic stress disorder) 309.81 [facility] [address] [address] 4669 Mar, [facility] [id number] [place] [address] 39457- 0167 Mar, Paranoid schizophrenia 295.30 ; Panic disorder with 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 ; PTSD (post-traumatic stress disorder) 309.81 and Depressive disorder, not elsewhere classified 311 [facility] [id number] [place] [address] 06936- 3256 Nov, [facility] [id number] [place] [address] 136564- 1728 Apr, [facility] [id number] [address]- 9248 Jan, [facility] [id number] [place] [address] 343613- 4781 Oct, [facility] [id number] [address] 8016 Sep, [facility] [address] [address] 9933 Sep, [facility] [id number] 8242 Aug, [facility] [id number] [place] [address] 96252- 7336 Aug, [facility] [id number] [place] [address] 99614- 1496 February, [facility] [address] [address] 8036 Nov, IMMUNIZATIONS No Known Immunizations SOCIAL HISTORY Never Assessed REASON FOR VISIT LIZ f/uVarsha GARCIA PLAN OF CARE Activity Details Follow Up 2 Months, prn Reason: VITAL SIGNS Height 67 in 2018-02-21 Weight 259.5 lbs 2018-02-21 Heart Rate 82 bpm 2018-02-21 Respiratory Rate 18 2018-02-21 BMI 40.64 kg/m2 2018-02-21 Blood pressure systolic 118 mmHg 2018-02-21 Blood pressure diastolic 76 mmHg 2018-02-21 MEDICATIONS Medication Instructions Dosage Frequency Start Date End Date Duration Status Bydureon 2 MG Subcutaneous once weekly 1 injection Jul, 30 days Active Metformin HCl 500 mg Orally 2 times a day 1 tablet with meals 12h 30 days Active Prozac 40 mg Orally Once a day 1 capsule 24h 30 days Not-Taking Glimepiride 2 MG Orally 2 times a day 1 tablet 12h 30 days Active Seroquel 300 MG Orally Once a day 0.5 tablet in the morning and 2.5 tablets at bedtime 24h 30 days Active RESULTS No Results [...]
--- OUTSIDE RECORDS SUMMARY | 2019-02-09 20:05 | XMS REPORT ---
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 Active 37896671 Problem Panic disorder F41.0 Active 217167817 Problem Schizophrenia F20.9 Active 74415197 Problem Dyslexia R48.0 Active 78322054 Problem Schizoaffective disorder, bipolar type F25.0 Active 90600491 ALLERGIES No Information ENCOUNTERS Encounter Location Date Diagnosis [place] [id number] [place] [address] 24928- 8327 Jul, [place] [id number] [place] [address] 75513- 9691 Apr, Schizophrenia F20.9 ; Posttraumatic stress disorder F43.10 ; Panic disorder F41.0 and Heroin use disorder, severe, 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 [place] [id number] [place] [address] 19710- 2622 February, [place] [address] 13096- 0597 February, Schizophrenia F20.9 ; Posttraumatic stress disorder F43.10 ; Panic disorder F41.0 ; Heroin use disorder, severe, 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 and BMI 40.0-44.9, adult Z68.41 [place] [address] [place] [address]- 9524 Jan, [place] [id number] [place] [address] 23151- 4893 Jan, Type 2 diabetes mellitus without complication, without long- term current use of insulin E11.9 [place] [address] [place] [address] 53656- 4769 Jan, Major depression, recurrent F33.9 [place] [id number] [place] [address] 91220- 8309 Jan, Establishing care with new doctor, encounter for Z76.89 ; Major depression, recurrent F33.9 ; Posttraumatic stress disorder F43.10 ; Schizoaffective disorder, bipolar type F25.0 ; Heroin use disorder, severe, in sustained remission F1. 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 [place] [address] [place] [address] 06637- 3777 Jul, Schizophrenia F20.9 [place] [id number] [place] [address] 05738- 1214 Jun, Posttraumatic stress disorder F43.10 ; Schizophrenia F20.9 ; Panic disorder F41.0 ; Dyslexia R48.0 and Heroin use disorder, severe, 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 [place] [id number] [place] [address] 21922- 1899 May, Posttraumatic stress disorder F43.10 ; Schizoaffective disorder, bipolar type F25.0 ; Panic disorder F41.0 ; Dyslexia R48.0 and Heroin use disorder, severe, 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 [facility] [address] [address]- 4303 03 Apr, 2017 Posttraumatic stress disorder F43.10 ; Schizoaffective disorder, bipolar type F25.0 ; Panic disorder F41.0 ; Dyslexia R48.0 and Heroin use disorder, severe, 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 [facility] [address] [place] [address] 29045- 9312 Mar, Schizophrenia F20.9 ; Posttraumatic stress disorder F43.10 and Major depression, recurrent F33.9 [facility] [id number] [place] [address] 97196- 2298 February, [facility] [id number] [place] [address] 48716- 4507 Oct, Major depression, recurrent F33.9 [facility] [id number] [place] [address] 57204- 1249 Oct, Major depression, recurrent F33.9 ; Schizophrenia F20.9 and Posttraumatic stress disorder F43.10 [facility] [id number] [place] [address] 43953- 0142 Sep, Posttraumatic stress disorder F43.10 ; Schizophrenia F20.9 and Major depressive disorder, recurrent episode with anxious distress F33.9 [facility] [address] [address]- 8223 Sep, Schizophrenia F20.9 [facility] [address] [address]- 1623 Sep, [facility] [id number] [place] [address] 81772- 3556 Aug, Posttraumatic stress disorder F43.10 ; Schizophrenia F20.9 and Major depression, recurrent F33.9 [facility] [address] [address]- 4471 Jun, Posttraumatic stress disorder F43.10 ; Schizophrenia F20.9 and Major depression, recurrent F33.9 [facility] [address] [place] [address] 89000- 9501 May, Posttraumatic stress disorder F43.10 ; Schizophrenia F20.9 and Major depression, recurrent F33.9 [facility] [address] [place] [address] 98165- 8561 Apr, Posttraumatic stress disorder F43.10 ; Schizophrenia F20.9 and Major depression, recurrent F33.9 [facility] [id number] [place] [address] 60261- 7043 February, Posttraumatic stress disorder F43.10 ; Schizophrenia F20.9 and Major depression, recurrent F33.9 [facility] [id number] [place] [address] 73650- 9557 Jan, Posttraumatic stress disorder F43.10 ; Schizophrenia F20.9 and Major depression, recurrent F33.9 [facility] [id number] [place] [address] 85034- 8986 Nov, Posttraumatic stress disorder F43.10 and Schizophrenia F20.9 [facility] [id number] [place] [address] 20916- 8052 Sep, [facility] [id number] [place] [address] 09025- 4662 Aug, Posttraumatic stress disorder F43.10 and Schizophrenia F20.9 [facility] [id number] [place] [address] 45283- 9921 Jul, Posttraumatic stress disorder F43.10 and Schizophrenia F20.9 [facility] [id number] [place] [address] 47446- 6829 Jul, [facility] [id number] [place] [address] 51157- 0344 May, [facility] [id number] [place] [address] 86197- 9919 May, PTSD (post-traumatic stress disorder) 309.81 ; Depressive disorder, not elsewhere classified 311 and Paranoid schizophrenia 295.30 [facility] [address] 4017 Apr, Paranoid schizophrenia 295.30 ; Depressive disorder, not elsewhere classified 311 and PTSD (post-traumatic stress disorder) 309.81 [facility] [address]- 7799 Mar, [facility] [id number] [place] [address] 65896- 3494 Mar, Paranoid schizophrenia 295.30 ; Panic disorder with 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 ; PTSD (post-traumatic stress disorder) 309.81 and Depressive disorder, not elsewhere classified 311 [facility] [id number] [place] [address] 09303- 4176 Nov, [facility] [id number] [place] [address] 130224- 7466 Apr, [facility] [address] [address]- 9840 Jan, [facility] [id number] [place] [address] 732740- 9455 Oct, [facility] [id number] [address]- 3361 Sep, [facility] [address] 9848 Sep, [facility] [id number]- 1176 Aug, [facility] [id number] [place] [address] 00168- 3996 Aug, [facility] [id number] [place] [address] 99466- 5916 February, [facility] [address] 2786 Nov, IMMUNIZATIONS No Known Immunizations SOCIAL HISTORY Never Assessed REASON FOR VISIT clarification PLAN OF CARE VITAL SIGNS MEDICATIONS Medication [...]
--- OUTSIDE RECORDS SUMMARY | 2019-02-09 20:05 | XMS REPORT ---
Author Author FRANNY FARLEY Organization [facility] IN [facility] Address [address] [place] [address] Care Team Providers Care Radiology Practitioner Assistant Name Role Phone FRANNY FARLEY Unavailable PROBLEMS Type Condition ICD9-CM Code QCT15-LZ Code Onset Dates Condition Status SNOMED Code Problem Posttraumatic stress disorder F43.10 Active 83606319 Problem Major depression, recurrent F33.9 Active 47350670 Problem Type 2 diabetes mellitus without complication, without long-term current use of insulin E11.9 Active 330665400 Problem Heroin use disorder, severe, 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 Active 18610202 Problem Panic disorder F41.0 Active 411177747 Problem Schizophrenia F20.9 Active 36095986 Problem Dyslexia R48.0 Active 18049102 Problem Schizoaffective disorder, bipolar type F25.0 Active 45300822 ALLERGIES No Information ENCOUNTERS Encounter Location Date Diagnosis [facility] [id number] [place] [address] 46852- 2156 Jul, [place] [id number] [place] [address] 98134- 2393 Apr, Schizophrenia F20.9 ; Posttraumatic stress disorder F43.10 ; Panic disorder F41.0 and Heroin use disorder, severe, 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 [facility] [id number] [place] [address] 46982- 8220 February, [place] [address] [address] February, Schizophrenia F20.9 ; Posttraumatic stress disorder F43.10 ; Panic disorder F41.0 ; Heroin use disorder, severe, 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 and BMI 40.0-44.9, adult Z68.41 [place] [address] [place] [address] Jan, [place] [id number] [place] [address] 61784- 3037 Jan, Type 2 diabetes mellitus without complication, without long- term current use of insulin E11.9 [place] [address] [place] [address] 48592- 3051 Jan, Major depression, recurrent F33.9 [place] [id number] [place] [address] 67870- 4261 Jan, Establishing care with new doctor, encounter for Z76.89 ; Major depression, recurrent F33.9 ; Posttraumatic stress disorder F43.10 ; Schizoaffective disorder, bipolar type F25.0 ; Heroin use disorder, severe, in sustained remission F1. 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 [place] [address] [place] [address] 78677- 5366 Jul, Schizophrenia F20.9 [place] [id number] [place] [address] 81007- 8139 Jun, Posttraumatic stress disorder F43.10 ; Schizophrenia F20.9 ; Panic disorder F41.0 ; Dyslexia R48.0 and Heroin use disorder, severe, 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 [place] [id number] [place] [address] 04187- 5790 May, Posttraumatic stress disorder F43.10 ; Schizoaffective disorder, bipolar type F25.0 ; Panic disorder F41.0 ; Dyslexia R48.0 and Heroin use disorder, severe, 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 [facility] [address] [address] Apr, 2017 Posttraumatic stress disorder F43.10 ; Schizoaffective disorder, bipolar type F25.0 ; Panic disorder F41.0 ; Dyslexia R48.0 and Heroin use disorder, severe, 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 [facility] [address] [place] [address] 85407- 3020 Mar, Schizophrenia F20.9 ; Posttraumatic stress disorder F43.10 and Major depression, recurrent F33.9 [facility] [id number] [place] [address] 19670- 5374 February, [facility] [id number] [place] [address] 88170- 5708 Oct, Major depression, recurrent F33.9 [facility] [id number] [place] [address] 96235- 1835 Oct, Major depression, recurrent F33.9 ; Schizophrenia F20.9 and Posttraumatic stress disorder F43.10 [facility] [id number] [place] [address] 78039- 1137 Sep, Posttraumatic stress disorder F43.10 ; Schizophrenia F20.9 and Major depressive disorder, recurrent episode with anxious distress F33.9 [facility] [address] [address] 7162 Sep, Schizophrenia F20.9 [facility] [address] [address] Sep, [facility] [id number] [place] [address] 05873- 9746 Aug, Posttraumatic stress disorder F43.10 ; Schizophrenia F20.9 and Major depression, recurrent F33.9 [facility] [address] [address] 6966 Jun, Posttraumatic stress disorder F43.10 ; Schizophrenia F20.9 and Major depression, recurrent F33.9 [facility] [address] [place] [address] 56017- 1620 May, Posttraumatic stress disorder F43.10 ; Schizophrenia F20.9 and Major depression, recurrent F33.9 [facility] [address] [place] [address] 26725- 8466 Apr, Posttraumatic stress disorder F43.10 ; Schizophrenia F20.9 and Major depression, recurrent F33.9 [facility] [id number] [place] [address] 80995- 2765 February, Posttraumatic stress disorder F43.10 ; Schizophrenia F20.9 and Major depression, recurrent F33.9 [facility] [id number] [place] [address] 13830- 2417 Jan, Posttraumatic stress disorder F43.10 ; Schizophrenia F20.9 and Major depression, recurrent F33.9 [facility] [id number] [place] [address] 16111- 1638 Nov, Posttraumatic stress disorder F43.10 and Schizophrenia F20.9 [facility] [id number] [place] [address] 27827- 4040 Sep, [facility] [id number] [place] [address] 07468- 2659 Aug, Posttraumatic stress disorder F43.10 and Schizophrenia F20.9 [facility] [id number] [place] [address] 80044- 7990 Jul, Posttraumatic stress disorder F43.10 and Schizophrenia F20.9 [facility] [id number] [place] [address] 88048- 5099 Jul, [facility] [id number] [place] [address] 55574- 1509 May, [facility] [id number] [place] [address] 57684- 5562 May, PTSD (post-traumatic stress disorder) 309.81 ; Depressive disorder, not elsewhere classified 311 and Paranoid schizophrenia 295.30 [facility] [address] [address] Apr, Paranoid schizophrenia 295.30 ; Depressive disorder, not elsewhere classified 311 and PTSD (post-traumatic stress disorder) 309.81 [facility] [address] [address] Mar, [facility] [id number] [place] [address] 06530- 3749 Mar, Paranoid schizophrenia 295.30 ; Panic disorder with 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 ; PTSD (post-traumatic stress disorder) 309.81 and Depressive disorder, not elsewhere classified 311 [facility] [id number] [place] [address] 89291- 0126 Nov, [facility] [id number] [place] [address] 137600- 5687 Apr, [facility] [id number] [address]- 8826 Jan, [facility] [id number] [place] [address] 636670- 1557 Oct, [facility] [id number] [address] 8947 Sep, [facility] [address] [address] Sep, [facility] [id number] [address] Aug, [facility] [id number] [place] [address] 62064- 4176 Aug, [facility] [id number] [place] [address] 44363- 3306 February, [facility] [address] [address]- [address] Nov, IMMUNIZATIONS No Known Immunizations SOCIAL HISTORY Never Assessed REASON FOR VISIT Prior Authorization Request PLAN OF CARE VITAL SIGNS MEDICATIONS Unknown [...]
--- OUTSIDE RECORDS SUMMARY | 2019-02-09 20:05 | XMS REPORT ---
Author Author BLANCO MARTE Organization [employer] Address Unknown Phone Unavailable Care Team Providers Care House Father Name Role Phone BLANCO MARTE CP Unavailable Allergies, Adverse Reactions, Alerts Substance Reaction Event Type N.K.D.A. Info Not Available Non Drug Allergy Problems Problem Type Condition Code Onset Dates Condition Status Assessment Schizophrenia F20.9 Active Assessment Major depression, recurrent F33.9 Active Assessment Posttraumatic stress disorder F43.10 Active Medications Medication Code System Code Instructions Start Date End Date Status Dosage Lorazepam [facility] [address]-65 1 MG Orally Twice a day April 07, 2015 1 tablet as needed Nabumetone [facility] [address]-99 500 MG Orally Twice a day 1 tablet Glimepiride [facility] [address]-68 2 MG Orally 2 times a day 1 tablet with breakfast or the first main meal of the day Metformin HCl [facility] [address]-11 500 MG Orally 4 times a day 1 tablet with meals Baclofen [facility] [address]-62 10 MG Orally Three times a day 1 tablet with food or milk Seroquel [facility] [address]-92 300 MG Orally one tablet in am 1.5 tablets at bedtime Jul 14, 2016 1 tablet Prozac [facility] [address]-30 20 MG Orally Once a day April 21, 2016 1 capsule in the morning Bydureon [facility] [address]-32 2 MG Subcutaneous once weekly 1 injection Mobic [facility] [address]-64 7.5 MG Orally Once a day 1 tablet Procedures Procedure Coding System Code Date Office Visit, Est Pt., Level 3 CPT-4 47257 Jul 14, 2016 Vital Signs Date/Time: Jul 14, 2016 Cardiac Monitoring Heart Rate 112 bpm Weight 302.5 lbs Height 67 in BMI 47.37 Index Blood Pressure Diastolic 81 mmHg Blood Pressure Systolic 120 mmHg Results No Known Results Summary Purpose [employer] Submission
--- OUTSIDE RECORDS SUMMARY | 2019-02-09 20:06 | XMS REPORT ---
Author Author BLANCO MARTE [facility] [employer] Address Unknown Phone Unavailable Care Team Providers Care Commercial Underwriter Name Role Phone BLANCO MARTE CP Unavailable Allergies, Adverse Reactions, Alerts Substance Reaction Event Type N.K.D.A. Info Not Available Non Drug Allergy Problems Problem Type Condition Code Onset Dates Condition Status Assessment Schizophrenia F20.9 Active Assessment Posttraumatic stress disorder F43.10 Active Medications Medication Code System Code Instructions Start Date End Date Status Dosage Glimepiride [facility] [address]-71 2 MG Orally 2 times a day 1 tablet with breakfast or the first main meal of the day Metformin HCl [facility] [address]-26 500 MG Orally 4 times a day 1 tablet with meals Lyrica [facility] [address]-71 100 MG Orally 3 times a day 1 capsule Bydureon [facility] [address]-21 2 MG Subcutaneous once weekly 1 injection Loxapine Succinate [facility] [address]-55 10 MG Orally once a day May 07, 2015 3 capsule Brintellix [facility] [address]-15 20 MG Orally Once a day Jun 11, 2015 1 tablet Trileptal [facility] [address]-57 600 MG Orally 1 tablet twice a day Aug 11, 2015 as directed Actos [facility] [address]-28 45 MG Orally Once a day 1 tablet Mobic [facility] [address]-52 15 MG Orally Once a day 1 tablet Trazodone HCl [facility] [address]-32 150 MG Orally Once a day April 07, 2015 1 tablet at bedtime as needed Lorazepam [facility] [address]-31 1 MG Orally Twice a day April 07, 2015 1 tablet as needed Procedures Procedure Coding System Code Date Office Visit, Est Pt., Level 3 CPT-4 38394 Sep 15, 2015 Vital Signs Date/Time: Sep 15, 2015 Cardiac Monitoring Heart Rate 84 bpm Weight 318.8 lbs Height 67 in BMI 49.93 Index Blood Pressure Diastolic 70 mmHg Blood Pressure Systolic 110 mmHg Results No Known Results Summary Purpose [employer] Submission
--- OUTSIDE RECORDS SUMMARY | 2019-02-09 20:06 | XMS REPORT ---
Author Author BLANCO MARTE [facility] Address Unknown Care Team Providers Care Visual Education Director Name Role Phone BLANCO MARTE Unavailable PROBLEMS Type Condition ICD9-CM Code [id number] Code Onset Dates Condition Status SNOMED Code Problem Posttraumatic stress disorder F43.10 Active 72945011 Problem Schizophrenia F20.9 Active 21913886 Problem Major depression, recurrent F33.9 Active 044671668 Assessment Schizophrenia F20.9 Sep, Active 19615485 ALLERGIES Unknown Allergies SOCIAL HISTORY No smoking Hx information available PLAN OF CARE VITAL SIGNS MEDICATIONS Medication Instructions Dosage Frequency Start Date End Date Duration Status Seroquel 300 MG Orally one in am and two at bedtime 1 tablet Aug, Active RESULTS No Results PROCEDURES No Known procedures IMMUNIZATIONS No Known Immunizations
--- OUTSIDE RECORDS SUMMARY | 2019-02-09 20:06 | XMS REPORT ---
Author Author BLANCO MARTE Organization [facility] Address Unknown Care Team Providers Care Coil Winder Strap Name Role Phone ESTUARDOBLANCO Unavailable PROBLEMS Type Condition ICD9-CM Code EKT36-WV Code Onset Dates Condition Status SNOMED Code Problem Posttraumatic stress disorder F43.10 Active 81047604 Problem Schizophrenia F20.9 Active 44608039 Problem Major depression, recurrent F33.9 Active 396787618 Assessment Posttraumatic stress disorder F43.10 Aug, Active 04414909 ALLERGIES Unknown Allergies SOCIAL HISTORY No smoking Hx information available PLAN OF CARE VITAL SIGNS Height 67 in 2016-08-23 Weight 301.6 lbs 2016-08-23 Heart Rate 80 bpm 2016-08-23 Respiratory Rate 20 2016-08-23 BMI 47.23 kg/m2 2016-08-23 Blood pressure systolic 120 mmHg 2016-08-23 Blood pressure diastolic 86 mmHg 2016-08-23 MEDICATIONS Medication Instructions Dosage Frequency Start Date End Date Duration Status Metformin HCl 500 MG Orally 4 times a day 1 tablet with meals 6h 30 days Active Glimepiride 2 MG Orally 2 times a day 1 tablet with breakfast or the first main meal of the day 12h Active Bydureon 2 MG Subcutaneous once weekly 1 injection Active Lorazepam 1 MG Orally Twice a day 1 tablet as needed 12h Mar, Active Nabumetone 500 MG Orally Twice a day 1 tablet 12h Active Baclofen 10 MG Orally Three times a day 1 tablet with food or milk 8h Active Seroquel 300 MG Orally one in am and two at bedtime 1 tablet Aug, 30 day(s) Active Prozac 20 MG Orally Once a day 1 capsule in the morning 24h Apr, 30 days Active RESULTS No Results PROCEDURES Procedure Date Ordered Related Diagnosis Body Site MH Office Visit, Est Pt., Level 3 Aug 23, 2016 IMMUNIZATIONS No Known Immunizations
--- OUTSIDE RECORDS SUMMARY | 2019-02-09 20:06 | XMS REPORT ---
Author Author BLANCO Cha Organization [facility] Address Unknown Care Team Providers Care Casino Cage Supervisor Name Role Phone BLANCO Cha Unavailable PROBLEMS Type Condition ICD9-CM Code [id number] Code Onset Dates Condition Status SNOMED Code Problem Major depression, recurrent F33.9 Active 88715936 Problem Schizoaffective disorder, bipolar type F25.0 Active 42620485 Problem Panic disorder F41.0 Active 029320396 Problem Schizophrenia F20.9 Active 36657796 Problem Posttraumatic stress disorder F43.10 Active 77528279 Problem Dyslexia R48.0 Active 68613471 Problem Heroin use disorder, severe, 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 Unknown Non Drug Allergy Oct, Unknown SOCIAL HISTORY No smoking Hx information available PLAN OF CARE Activity Details Follow Up 6 Weeks Reason: VITAL SIGNS Height 67 in 2016-11-08 Weight 291.0 lbs 2016-11-08 Heart Rate 108 bpm 2016-11-08 Respiratory Rate 20 2016-11-08 BMI 45.57 kg/m2 2016-11-08 Blood pressure systolic 111 mmHg 2016-11-08 Blood pressure diastolic 81 mmHg 2016-11-08 MEDICATIONS Medication Instructions Dosage Frequency Start Date End Date Duration Status Lorazepam 1 MG Orally Twice a day 1 tablet as needed 12h Mar, 30 days Active Seroquel 300 MG Orally 1 tablet in am and 2.5 tablets at bedtime 1 tablet Oct, 30 day(s) Active Prozac 20 MG Orally Once a day 1 capsule in the morning 24h Apr, 30 days Active Nabumetone 500 MG Orally Twice a day 1 tablet 12h Active Metformin HCl 500 MG Orally 4 times a day 1 tablet with meals 6h 30 days Active Baclofen 10 MG Orally Three times a day 1 tablet with food or milk 8h Active Glimepiride 2 MG Orally 2 times a day 1 tablet with breakfast or the first main meal of the day 12h Active Bydureon 2 MG Subcutaneous once weekly 1 injection Active RESULTS Name Result Date Reference Range URINE DRUG SCREEN (IN HOUSE) 2016-11-08 Lot # [id number] Exp date Control + COCAINE Negative AMPH Negative MTD Negative THC Negative OPIATE Negative BENZO Positive PCP Negative BAR Negative OXY Negative MAMP Negative TCA Negative BUP Negative MDMA Negative PROCEDURES Procedure Date Ordered Related Diagnosis Body Site DRUG TEST PRSMV DIR OPT OBS Nov 08, 2016 Office Visit, Est Pt., Level 3 Nov 08, 2016 IMMUNIZATIONS No Known Immunizations
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
--- OUTSIDE RECORDS SUMMARY | 2019-02-09 20:06 | XMS REPORT ---
Author Author BLANCO MARTE Organization [employer] Address Unknown Phone Unavailable Care Team Providers Care Labor Relations Analyst Name Role Phone BLANCO MARTE CP Unavailable Allergies, Adverse Reactions, Alerts Substance Reaction Event Type N.K.D.A. Info Not Available Non Drug Allergy Problems Problem Type Condition Code Onset Dates Condition Status Assessment Schizophrenia F20.9 Active Assessment Major depression, recurrent F33.9 Active Assessment Posttraumatic stress disorder F43.10 Active Medications Medication Code System Code Instructions Start Date End Date Status Dosage Mobic [facility] [address]-59 7.5 MG Orally Once a day 1 tablet Metformin HCl [facility] [address]-58 500 MG Orally 4 times a day 1 tablet with meals Prozac [facility] [address]-88 20 MG Orally Once a day April 21, 2016 1 capsule in the morning Seroquel [facility] [address]-44 300 MG Orally 1 tablet in am 1.5 tablets at bedtime May 24, 2016 1 tablet Nabumetone [facility] [address]-85 500 MG Orally Twice a day 1 tablet Lorazepam [facility] [address]-26 1 MG Orally Twice a day April 07, 2015 1 tablet as needed Baclofen [facility] [address]-21 10 MG Orally Three times a day 1 tablet with food or milk Glimepiride [facility] [address]-93 2 MG Orally 2 times a day 1 tablet with breakfast or the first main meal of the day Bydureon [facility] [address]-26 2 MG Subcutaneous once weekly 1 injection Procedures Procedure Coding System Code Date Office Visit, Natan Pt., Level 3 CPT-4 62638 May 24, 2016 Vital Signs Date/Time: May 24, 2016 Cardiac Monitoring Heart Rate 108 bpm Weight 313.2 lbs Height 67 in BMI 49.05 Index Blood Pressure Diastolic 75 mmHg Blood Pressure Systolic 108 mmHg Results No Known Results Summary Purpose [employer] Submission
--- OUTSIDE RECORDS SUMMARY | 2019-02-09 20:06 | XMS REPORT ---
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 Active 13801154 Problem Panic disorder F41.0 Active 025460957 Problem Schizophrenia F20.9 Active 32167297 Problem Dyslexia R48.0 Active 34581402 Problem Schizoaffective disorder, bipolar type F25.0 Active 85286157 ALLERGIES No Information ENCOUNTERS Encounter Location Date Diagnosis [place] [id number] [place] [address] 46130[address] 4910 Apr, [facility] [id number] [place] [address] 49410- 2125 February, [place] [id number] [place] [address] 26617- 6304 February, Schizophrenia F20.9 ; Posttraumatic stress disorder F43.10 ; Panic disorder F41.0 ; Heroin use disorder, severe, 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 and BMI 40.0-44.9, adult Z68.41 [place] [id number] [place] [address] 16107- 8075 Jan, [facility] [id number] [place] [address] 37204- 5081 Jan, Type 2 diabetes mellitus without complication, without long- term current use of insulin E11.9 [place] [address] [address] Jan, Major depression, recurrent F33.9 [place] [id number] [place] [address] 22340- 5752 Jan, Establishing care with new doctor, encounter for Z76.89 ; Major depression, recurrent F33.9 ; Posttraumatic stress disorder F43.10 ; Schizoaffective disorder, bipolar type F25.0 ; Heroin use disorder, severe, in sustained remission F1. 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 [place] [id number] [place] [address] 43553- 6064 Jul, Schizophrenia F20.9 [place] [id number] [place] [address] 30646- 8516 Jun, Posttraumatic stress disorder F43.10 ; Schizophrenia F20.9 ; Panic disorder F41.0 ; Dyslexia R48.0 and Heroin use disorder, severe, 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 [place] [address] [address] May, Posttraumatic stress disorder F43.10 ; Schizoaffective disorder, bipolar type F25.0 ; Panic disorder F41.0 ; Dyslexia R48.0 and Heroin use disorder, severe, 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 [place] [address] [place] [address] 61472- 2085 Apr, Posttraumatic stress disorder F43.10 ; Schizoaffective disorder, bipolar type F25.0 ; Panic disorder F41.0 ; Dyslexia R48.0 and Heroin use disorder, severe, 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 [facility] [id number] [place] [address] 06499- 4754 Mar, Schizophrenia F20.9 ; Posttraumatic stress disorder F43.10 and Major depression, recurrent F33.9 [facility] [id number] [place] [address] 40629- 6518 February, [facility] [id number] [place] [address] 25160- 6681 Oct, Major depression, recurrent F33.9 [place] [id number] [place] [address] 17797- 8678 Oct, Major depression, recurrent F33.9 ; Schizophrenia F20.9 and Posttraumatic stress disorder F43.10 [place] [id number] [place] [address] 28289- 5576 Sep, Posttraumatic stress disorder F43.10 ; Schizophrenia F20.9 and Major depressive disorder, recurrent episode with anxious distress F33.9 [facility] [id number] [place] [address] 93058- 7282 Sep, Schizophrenia F20.9 [facility] [id number] [place] [address] 70577- 9880 Sep, [facility] [id number] [place] [address] 57436- 6214 Aug, Posttraumatic stress disorder F43.10 ; Schizophrenia F20.9 and Major depression, recurrent F33.9 [facility] [address] [place] [address] 25351- 8494 Jun, Posttraumatic stress disorder F43.10 ; Schizophrenia F20.9 and Major depression, recurrent F33.9 [facility] [address] [place] [address] 60588- 7550 May, Posttraumatic stress disorder F43.10 ; Schizophrenia F20.9 and Major depression, recurrent F33.9 [facility] [address] [address] 4[address] Apr, Posttraumatic stress disorder F43.10 ; Schizophrenia F20.9 and Major depression, recurrent F33.9 [facility] [address] [address] February, Posttraumatic stress disorder F43.10 ; Schizophrenia F20.9 and Major depression, recurrent F33.9 [facility] [id number] [place] [address] 71732- 2233 Jan, Posttraumatic stress disorder F43.10 ; Schizophrenia F20.9 and Major depression, recurrent F33.9 [facility] [id number] [place] [address] 56280- 0347 Nov, Posttraumatic stress disorder F43.10 and Schizophrenia F20.9 [facility] [id number] [place] [address] 91931- 5211 Sep, [facility] [id number] [place] [address] 49505- 8314 Aug, Posttraumatic stress disorder F43.10 and Schizophrenia F20.9 [facility] [id number] [place] [address] 22751- 5950 Jul, Posttraumatic stress disorder F43.10 and Schizophrenia F20.9 [facility] [address] [address] 1488 Jul, [facility] [id number] [place] [address] 20431- 8592 May, [facility] [address] [place] [address] 41251- 9579 May, PTSD (post-traumatic stress disorder) 309.81 ; Depressive disorder, not elsewhere classified 311 and Paranoid schizophrenia 295.30 [facility] [address] [address] Apr, Paranoid schizophrenia 295.30 ; Depressive disorder, not elsewhere classified 311 and PTSD (post-traumatic stress disorder) 309.81 [facility] [address] [address] 6552 Mar, [facility] [id number] [place] [address] 57255- 3916 Mar, Paranoid schizophrenia 295.30 ; Panic disorder with 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 ; PTSD (post-traumatic stress disorder) 309.81 and Depressive disorder, not elsewhere classified 311 [facility] [id number] [address] 9041 Nov, [facility] [address] [address] 6[address] Apr, [facility] [id number] [place] [address] 12470- 4650 Jan, [facility] [id number] [address] 2843 Oct, [facility] [id number] [address] 8869 Sep, [facility] [address] [address]- 3422 Sep, [facility] [address] [address]- 2066 Aug, [facility] [address] [address]- 4256 Aug, [facility] [address] [address]- 0555 February, [facility] [id number] [address]50 Nov, IMMUNIZATIONS No Known Immunizations SOCIAL HISTORY Never Assessed REASON FOR VISIT f/u, contract PLAN OF CARE Activity Details Follow Up 4 Months Reason: VITAL SIGNS MEDICATIONS Medication Instructions Dosage Frequency Start Date End Date Duration Status Glimepiride 2 MG Orally 2 times a day 1 tablet with breakfast or the first main meal of the day 12h Active Prozac 40 MG Orally Once a day 1 capsule 24h 30 days Active Seroquel 300 MG Orally Once a day 0.5 tablet in the morning and 2.5 tablets at bedtime 24h Active Bydureon 2 MG Subcutaneous once weekly 1 injection Active Baclofen 10 MG Orally Three times a day 1 tablet with food or milk 8h Not-Taking Nabumetone 500 MG Orally Twice a day 1 tablet 12h Not-Taking Metformin HCl 500 mg Orally 2 times a day 1 tablet with meals 12h Active Ativan 2 MG Orally Once a day as needed for anxiety 1 tablet May, Not-Taking RESULTS No Results PROCEDURES No Known procedures [...]
--- OUTSIDE RECORDS SUMMARY | 2019-02-09 20:06 | XMS REPORT ---
Author Author BLANCO MARTE Organization [employer] Address Unknown Phone Unavailable Care Team Providers Care Transfer Controller Name Role Phone BLANCO MARTE CP Unavailable Allergies No Known Allergies Problems No Known Problems Medications Medication Code System Code Instructions Start Date End Date Status Dosage Loxapine Succinate [facility] [address]-76 10 MG Orally once a day May 07, 2015 3 capsule Results No Known Results Summary Purpose [employer] Submission
--- OUTSIDE RECORDS SUMMARY | 2019-02-09 20:06 | XMS REPORT ---
Author Author BLANCO MARTE [facility] [employer] Address Unknown Phone Unavailable Care Team Providers Care Thermit Welding Machine Operator Name Role Phone BLANCO MARTE CP Unavailable Allergies, Adverse Reactions, Alerts Substance Reaction Event Type N.K.D.A. Info Not Available Non Drug Allergy Problems Problem Type Condition Code Onset Dates Condition Status Assessment Schizophrenia F20.9 Active Assessment Major depression, recurrent F33.9 Active Assessment Posttraumatic stress disorder F43.10 Active Medications Medication Code System Code Instructions Start Date End Date Status Dosage Glimepiride [facility] [address]-28 2 MG Orally 2 times a day 1 tablet with breakfast or the first main meal of the day Prozac [facility] [address]-06 20 MG Orally Once a day April 21, 2016 1 capsule in the morning Metformin HCl [facility] [address]-59 500 MG Orally 4 times a day 1 tablet with meals Actos [facility] [address]-60 45 MG Orally Once a day 1 tablet [address]umetone [facility] [address]-68 500 MG Orally Twice a day 1 tablet Lyrica [facility] [address]-88 100 MG Orally 3 times a day 1 capsule [address] [facility] [address]-26 2 MG Subcutaneous once weekly 1 injection Seroquel [facility] [address]-69 300 MG Orally twice a day April 21, 2016 as directed Lorazepam [facility] [address]-23 1 MG Orally Twice a day April 07, 2015 1 tablet as needed Procedures Procedure Coding System Code Date Office Visit, Est Pt., Level 3 CPT-4 75967 April 21, 2016 Vital Signs Date/Time: April 21, 2016 Cardiac Monitoring Heart Rate 97 bpm Weight 314.6 lbs Height 67 in Blood Pressure Diastolic 85 mmHg Blood Pressure Systolic 126 mmHg Results No Known Results Summary Purpose [employer] Submission
--- OUTSIDE RECORDS SUMMARY | 2019-02-09 20:06 | XMS REPORT ---
Author Author BLANCO MARTE [facility] [employer] Address Unknown Phone Unavailable Care Team Providers Care Transportation Logistics Internship Name Role Phone BLANCO MARTE CP Unavailable Allergies, Adverse Reactions, Alerts Substance Reaction Event Type N.K.D.A. Info Not Available Non Drug Allergy Problems Problem Type Condition Code Onset Dates Condition Status Assessment Schizophrenia F20.9 Active Assessment Posttraumatic stress disorder F43.10 Active Medications Medication Code System Code Instructions Start Date End Date Status Dosage Glimepiride [facility] [address]-03 2 MG Orally 2 times a day 1 tablet with breakfast or the first main meal of the day Trileptal [facility] [address]-81 600 MG Orally 1 tablet twice a day Aug 11, 2015 as directed Lorazepam [facility] [address]-76 1 MG Orally Twice a day April 07, 2015 1 tablet as needed Mobic [facility] [address]-26 15 MG Orally Once a day 1 tablet Metformin HCl [facility] [address]-28 500 MG Orally 4 times a day 1 tablet with meals Trazodone HCl [facility] [address]-37 150 MG Orally Once a day April 07, 2015 1 tablet at bedtime as needed Loxapine Succinate [facility] [address]-54 10 MG Orally once a day May 07, 2015 3 capsule Brintellix [facility] [address]-06 20 MG Orally Once a day Jun 11, 2015 1 tablet Bydureon [facility] [address]-30 2 MG Subcutaneous once weekly 1 injection Actos [facility] [address]-65 45 MG Orally Once a day 1 tablet Lyrica [facility] [address]-03 100 MG Orally 3 times a day 1 capsule Procedures Procedure Coding System Code Date Office Visit, Est Pt., Level 3 CPT-4 38766 Aug 11, 2015 Vital Signs Date/Time: Aug 11, 2015 Cardiac Monitoring Heart Rate 88 bpm Weight 301.5 lbs Height 67 in BMI 47.22 Index Blood Pressure Diastolic 70 mmHg Blood Pressure Systolic 110 mmHg Results No Known Results Summary Purpose [employer] Submission
--- OUTSIDE RECORDS SUMMARY | 2019-02-09 20:07 | XMS REPORT ---
Author Author BLANCO MARTE Organization [facility] Address Unknown Care Team Providers Care Abattoir Manager Name Role Phone ESTUARDOBLANCO Unavailable PROBLEMS Type Condition ICD9-CM Code LVW06-EQ Code Onset Dates Condition Status SNOMED Code Problem Major depression, recurrent F33.9 Active 46752834 Problem Schizoaffective disorder, bipolar type F25.0 Active 20166836 Problem Panic disorder F41.0 Active 786595112 Problem Posttraumatic stress disorder F43.10 Active 53699277 Problem Schizophrenia F20.9 Active 16324049 Problem Dyslexia R48.0 Active 80876677 Problem Heroin use disorder, severe, 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 Unknown Non Drug Allergy Sep, Unknown SOCIAL HISTORY No smoking Hx information available PLAN OF CARE Activity Details Follow Up 3 Months Reason: VITAL SIGNS Height 67 in 2016-10-13 Weight 292.2 lbs 2016-10-13 Heart Rate 92 bpm 2016-10-13 Respiratory Rate 20 2016-10-13 BMI 45.76 kg/m2 2016-10-13 Blood pressure systolic 101 mmHg 2016-10-13 Blood pressure diastolic 70 mmHg 2016-10-13 MEDICATIONS Medication Instructions Dosage Frequency Start Date End Date Duration Status Seroquel 300 MG Orally one in am and two at bedtime 1 tablet Aug, 30 days Active Bydureon 2 MG Subcutaneous [...] main meal of the day 12h Active Nabumetone 500 MG Orally Twice a day 1 tablet 12h Active Metformin HCl 500 MG Orally 4 times a day 1 tablet with meals 6h 30 days Active Prozac 20 MG Orally Once a day 1 capsule in the morning 24h Apr, 30 days Active RESULTS No Results PROCEDURES Procedure Date Ordered Related Diagnosis Body Site Office Visit, Est Pt., Level 3 Oct 13, 2016 IMMUNIZATIONS No Known Immunizations
--- OUTSIDE RECORDS SUMMARY | 2019-02-09 20:07 | XMS REPORT ---
Author Author BLANCO Cha Organization [facility] Address Unknown Care Team Providers Care Adult Parole Officer Name Role Phone BLANCO Cha Unavailable PROBLEMS Type Condition ICD9-CM Code MFQ19-HC Code Onset Dates Condition Status SNOMED Code Problem Major depression, recurrent F33.9 Active 88024215 Problem Schizoaffective disorder, bipolar type F25.0 Active 34525130 Problem Panic disorder F41.0 Active 115164164 Problem Schizophrenia F20.9 Active 62047559 Problem Posttraumatic stress disorder F43.10 Active 02223895 Problem Dyslexia R48.0 Active 03600066 Problem Heroin use disorder, severe, 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
--- OUTSIDE RECORDS SUMMARY | 2019-02-09 20:07 | XMS REPORT ---
Author Author BLANCO MARTE Organization [employer] Address Unknown Phone Unavailable Care Team Providers Care Environmental Consultant Name Role Phone BLANCO MARTE CP Unavailable Allergies No Known Allergies Problems No Known Problems Medications Medication Code System Code Instructions Start Date End Date Status Dosage Lorazepam [facility] [address]-05 1 MG Orally Twice a day April 07, 2015 1 tablet as needed Results No Known Results Summary Purpose [employer] Submission
--- OUTSIDE RECORDS SUMMARY | 2019-02-09 20:07 | XMS REPORT ---
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 Active 52852437 Problem Panic disorder F41.0 Active 136201378 Problem Schizophrenia F20.9 Active 06363405 Problem Dyslexia R48.0 Active 25710819 Problem Schizoaffective disorder, bipolar type F25.0 Active 63448304 ALLERGIES No Known Allergies ENCOUNTERS Encounter Location Date Diagnosis [facility] [address] [address] February, [facility] [address] [address] Jan, [place] [id number] [id number] [place] [address]64- 9428 Jan, Type 2 diabetes mellitus without complication, without long- term current use of insulin E11.9 [facility] [id number] [place] [address] 37126- 4109 Jan, Major depression, recurrent F33.9 [facility] [address] [address] Jan, Establishing care with new doctor, encounter for Z76.89 ; Major depression, recurrent F33.9 ; Posttraumatic stress disorder F43.10 ; Schizoaffective disorder, bipolar type F25.0 ; Heroin use disorder, severe, 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 ; Unexplained weight loss R63.4 and Type 2 diabetes mellitus without complication, without long-term current use of insulin E11.9 [place] [address] [place] [address]- 6907 09 Nov, 2017 [place] [id number] [place] [address] 79106- 4110 Oct, Schizophrenia F20.9 ; Posttraumatic stress disorder F43.10 ; Panic disorder F41.0 and Heroin use disorder, severe, 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 [place] [id number] [place] [address] 38[address]- 2680 Jul, Schizophrenia F20.9 [place] [id number] [place] [address] 90341- 6964 Jun, Posttraumatic stress disorder F43.10 ; Schizophrenia F20.9 ; Panic disorder F41.0 ; Dyslexia R48.0 and Heroin use disorder, severe, 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 [place] [id number] [place] [address] 42297- 2273 May, Posttraumatic stress disorder F43.10 ; Schizoaffective disorder, bipolar type F25.0 ; Panic disorder F41.0 ; Dyslexia R48.0 and Heroin use disorder, severe, 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 [place] [address] [place] [address] 40273- 3331 Apr, Posttraumatic stress disorder F43.10 ; Schizoaffective disorder, bipolar type F25.0 ; Panic disorder F41.0 ; Dyslexia R48.0 and Heroin use disorder, severe, 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 [place] [id number] [place] [address] 0[address]01- 3109 Mar, Schizophrenia F20.9 ; Posttraumatic stress disorder F43.10 and Major depression, recurrent F33.9 [place] [address] [place] [address] 31852- 2466 February, [facility] [id number] [address] Oct, Major depression, recurrent F33.9 [facility] [id number] [address] Oct, Major depression, recurrent F33.9 ; Schizophrenia F20.9 and Posttraumatic stress disorder F43.10 [facility] [address] [place] [address] 35781- 0063 Sep, Posttraumatic stress disorder F43.10 ; Schizophrenia F20.9 and Major depressive disorder, recurrent episode with anxious distress F33.9 [facility] [id number] [place] [address] 40469- 2901 Sep, Schizophrenia F20.9 [facility] [address] [address] Sep, [facility] [id number] [place] [address] 45267- 2339 Aug, Posttraumatic stress disorder F43.10 ; Schizophrenia F20.9 and Major depression, recurrent F33.9 [facility] [id number] [address] Jun, Posttraumatic stress disorder F43.10 ; Schizophrenia F20.9 and Major depression, recurrent F33.9 [facility] [id number] [address] May, Posttraumatic stress disorder F43.10 ; Schizophrenia F20.9 and Major depression, recurrent F33.9 [facility] [id number] [address] Apr, Posttraumatic stress disorder F43.10 ; Schizophrenia F20.9 and Major depression, recurrent F33.9 [facility] [id number] [address] February, Posttraumatic stress disorder F43.10 ; Schizophrenia F20.9 and Major depression, recurrent F33.9 [facility] [address] [place] [address] 2[address] Jan, Posttraumatic stress disorder F43.10 ; Schizophrenia F20.9 and Major depression, recurrent F33.9 [place] [address] [place] [address] 02951- 6970 Nov, Posttraumatic stress disorder F43.10 and Schizophrenia F20.9 [place] [id number] [place] [address] 55207- 7830 Sep, [place] [id number] [place] [address] 11608- 8074 Aug, Posttraumatic stress disorder F43.10 and Schizophrenia F20.9 [place] [id number] [place] [address] 72716- 4882 Jul, Posttraumatic stress disorder F43.10 and Schizophrenia F20.9 [place] [id number] [place] [address] 37472- 8737 Jul, [place] [id number] [place] [address] 49333- 4870 May, [place] [id number] [place] [address] 83568- 8738 May, PTSD (post-traumatic stress disorder) 309.81 ; Depressive disorder, not elsewhere classified 311 and Paranoid schizophrenia 295.30 [place] [address] [place] [address] 26498- 9569 Apr, Paranoid schizophrenia 295.30 ; Depressive disorder, not elsewhere classified 311 and PTSD (post-traumatic stress disorder) 309.81 [place] [address] [place] [address] 46217- 4307 Mar, [place] [id number] [place] [address] 19472- 7380 Mar, Paranoid schizophrenia 295.30 ; Panic disorder with 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 ; PTSD (post-traumatic stress disorder) 309.81 and Depressive disorder, not elsewhere classified 311 [place] [address] [id number] [address] Nov, [facility] [address] Apr, [facility] [address] [place] [address] Jan, [facility] [address] [address] Oct, [facility] [address] [place] [address] Sep, [facility] [address] Sep, [facility] [address] [place] [address] 27[address] Aug, [facility] [address] [place] [address]- [address] Aug, [facility] [id number] [place] [address]- [address] February, [facility] [address] [place] [address] Nov, IMMUNIZATIONS No Known Immunizations SOCIAL HISTORY Never Assessed REASON FOR VISIT f/u --Ryan GARCIA PLAN OF CARE Activity Details Follow Up 4 Weeks Reason: VITAL SIGNS Height 67 in 2017-06-13 Weight 282.2 lbs 2017-06-13 Heart Rate 84 bpm 2017-06-13 Respiratory Rate 19 2017-06-13 BMI 44.19 kg/m2 2017-06-13 Blood pressure systolic 118 mmHg 2017-06-13 Blood pressure diastolic 78 mmHg 2017-06-13 MEDICATIONS Medication Instructions Dosage Frequency Start Date End Date Duration Status Prozac 40 MG 1 capsule in the morning Once a day Orally 30 days Active Glimepiride 2 MG Orally 2 times a day 1 tablet with breakfast or the first main meal of the day 12h Active Ativan 2 MG Orally Once a day as needed for anxiety 1 tablet May, 30 days Active Metformin HCl 500 mg Orally 2 times a day 1 tablet with meals 12h Active Seroquel 300 MG Orally Once a day 0.5 tablet in the morning and 2.5 tablets at bedtime 24h 30 days Active Bydureon 2 MG Subcutaneous once weekly 1 injection Active RESULTS No Results PROCEDURES No Known [...]
--- OUTSIDE RECORDS SUMMARY | 2019-02-09 20:07 | XMS REPORT ---
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 Active 22788447 Problem Panic disorder F41.0 Active 497367849 Problem Schizophrenia F20.9 Active 09514480 Problem Dyslexia R48.0 Active 22377146 Problem Schizoaffective disorder, bipolar type F25.0 Active 74759820 ALLERGIES No Information ENCOUNTERS Encounter Location Date Diagnosis [facility] [id number] [place] [address] February, [facility] [id number] [place] [address] 49672- 8306 Jan, [facility] [id number] [place] [address] 99817- 0891 Jan, Type 2 diabetes mellitus without complication, without long- term current use of insulin E11.9 [facility] [id number] [place] [address] 80890- 6168 Jan, Major depression, recurrent F33.9 [facility] [id number] [place] [address] 53724- 5190 Jan, Establishing care with new doctor, encounter for Z76.89 ; Major depression, recurrent F33.9 ; Posttraumatic stress disorder F43.10 ; Schizoaffective disorder, bipolar type F25.0 ; Heroin use disorder, severe, 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 ; Unexplained weight loss R63.4 and Type 2 diabetes mellitus without complication, without long-term current use of insulin E11.9 [place] [address] [place] [address] 92385- 2429 09 Nov, 2017 [place] [address] [id number] [place] [address] 27800- 9817 Oct, Schizophrenia F20.9 ; Posttraumatic stress disorder F43.10 ; Panic disorder F41.0 and Heroin use disorder, severe, 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0 and Heroin use disorder, severe, 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 [place] [address] [place] [address] 53775- 6181 Apr, Posttraumatic stress disorder F43.10 ; Schizoaffective disorder, bipolar type F25.0 ; Panic disorder F41.0 ; Dyslexia R48.0 and Heroin use disorder, severe, 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10 [facility] [address] [place] [address] 96082- 8200 Sep, Posttraumatic stress disorder F43.10 ; Schizophrenia F20.9 and Major depressive disorder, recurrent episode with anxious distress F33.9 [facility] [id number] [place] [address], [place] [address]- 6380 Sep, Schizophrenia F20.9 [facility] [address] [place] [address] 70803- 8176 Sep, [facility] [id number] [place] [address] 53032- 4728 Aug, Posttraumatic stress disorder F43.10 ; Schizophrenia F20.9 and Major depression, recurrent F33.9 [facility] [address] [id number], [place] [address]- 4584 Jun, Posttraumatic stress disorder F43.10 ; Schizophrenia F20.9 and Major depression, recurrent F33.9 [facility] [address], [place] [address]- 6277 May, Posttraumatic stress disorder F43.10 ; Schizophrenia F20.9 and Major depression, recurrent F33.9 [facility] [address] [id number], [place] [address]- 3223 Apr, Posttraumatic stress disorder F43.10 ; Schizophrenia F20.9 and Major depression, recurrent F33.9 [facility] [address] [id number] [address] February, Posttraumatic stress disorder F43.10 ; Schizophrenia F20.9 and Major depression, recurrent F33.9 [facility] [address], [place] [address]- 5351 Jan, Posttraumatic stress disorder F43.10 ; Schizophrenia F20.9 and Major depression, recurrent F33.9 [place] [address] [place] [address] 74206- 9444 Nov, Posttraumatic stress disorder F43.10 and Schizophrenia F20.9 [place] [id number] [place] [address] 55586- 7855 Sep, [place] [address] [id number] [place] [address] 38036- 1067 Aug, Posttraumatic stress disorder F43.10 and Schizophrenia F20.9 [place] [id number] [place] [address] 28606- 8093 Jul, Posttraumatic stress disorder F43.10 and Schizophrenia F20.9 [place] [id number] [place] [address] 40577- 0309 Jul, [place] [id number] [place] [address] 60919- 0875 May, [place] [id number] [place] [address] 67997- 9338 May, PTSD (post-traumatic stress disorder) 309.81 ; Depressive disorder, not elsewhere classified 311 and Paranoid schizophrenia 295.[address] [place] [address] 97066- 5271 Apr, Paranoid schizophrenia 295.30 ; Depressive disorder, not elsewhere classified 311 and PTSD (post-traumatic stress disorder) 309.81 [place] [address], [place] [address]- 7711 Mar, [place] [id number] [place] [address] 64298- 2329 Mar, Paranoid schizophrenia 295.30 ; Panic disorder with 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 ; PTSD (post-traumatic stress disorder) 309.81 and Depressive disorder, not elsewhere classified [address] [place] [address] [place] [id number], [place] [address]- 3716 18 Nov, 2010 [facility] [address], [place] [address]- 6356 Apr, [facility] [address], [place] [address]- 9266 Jan, [facility] [address], [place] [address]- 9116 Oct, [facility] [address], [place] [address]- 4562 Sep, [facility] [address], [place] [address]- 7646 Sep, [facility] [address], [place] [address]- 7776 Aug, [facility] [address], [place] [address]- [address] Aug, [facility] [address], [place] [address]- 8838 February, [facility] [address], [place] [address]- 8209 Nov, IMMUNIZATIONS No Known Immunizations SOCIAL HISTORY Never Assessed REASON FOR VISIT f/u PLAN OF CARE Activity Details Follow Up 3 Months Reason: VITAL SIGNS MEDICATIONS Medication Instructions Dosage Frequency Start Date End Date Duration Status Prozac 40 MG 1 capsule in the morning Once a day Orally 30 days Active Seroquel 300 MG Orally Once a day 0.5 tablet in the morning and 2.5 tablets at bedtime 24h Active Ativan 2 MG Orally Once a day as needed for anxiety 1 tablet May, Active Metformin HCl 500 mg Orally 2 times a day 1 tablet with meals 12h Active Glimepiride 2 MG Orally 2 times [...]
--- OUTSIDE RECORDS SUMMARY | 2019-02-09 20:07 | XMS REPORT ---
Author Author BLANCO MRATE [facility] Address Unknown Care Team Providers Care [place] Pilot Name Role Phone BLANCO MARTE Unavailable PROBLEMS Type Condition ICD9-CM Code VPT07-SD Code Onset Dates Condition Status SNOMED Code Problem Posttraumatic stress disorder F43.10 Active 78257928 Problem Schizophrenia F20.9 Active 52590683 Problem Major depression, recurrent F33.9 Active 929257958 ALLERGIES Unknown Allergies SOCIAL HISTORY No smoking Hx information available PLAN OF CARE VITAL SIGNS MEDICATIONS Medication Instructions Dosage Frequency Start Date End Date Duration Status Seroquel 300 MG Orally one in am and two at bedtime 1 tablet Aug, Active RESULTS No Results PROCEDURES No Known procedures IMMUNIZATIONS No Known Immunizations
--- OUTSIDE RECORDS SUMMARY | 2019-02-09 20:07 | XMS REPORT ---
Author Author BLANCO MARTE Organization [employer] Address Unknown Phone Unavailable Care Team Providers Care Injection Molding Process Technician Name Role Phone BLANCO MARTE CP Unavailable Allergies No Known Allergies Problems No Known Problems Medications No Known Medications Results No Known Results Summary Purpose [employer] Submission
--- OUTSIDE RECORDS SUMMARY | 2019-02-09 20:07 | XMS REPORT | Clinical Summary ---
Author Author Sophy Viera Organization [facility] Address [address] [facility] [address] [place] [address] Phone Care Team Providers Care Handle Sander Operator Name Role Phone Sophy Viera Unavailable Conditions or Problems Problem Name Problem Code Onset Date Status Entry Date Provider Comment Standard Description Annotate Gluteal pain 078569466 (SNOMED CT) Active Reena Hoffmann Pain in buttock Lumbar spine instability 121532140 (SNOMED CT) Active Reena Hoffmann Lumbar spine instability Leg pain, left 609487525 (SNOMED CT) Active Reena Hoffmann Pain in left lower limb Back pain, low 310696179 (SNOMED CT) Active Reena Hoffmann Low back pain Back pain, lumbosacral, chronic 076602607 (SNOMED CT) [facility] low back pain Arthrodesis status 322530958 (SNOMED CT) Active [facility] H/O: arthrodesis Medications Medication Instructions Start Date Stop Date Generic Name [facility] Provider FLUOXETINE HCL 40 MG CAPS FLUOXETINE HCL 77157603909 Michaela Wynne CNA QUETIAPINE FUMARATE 300 MG TABS QUETIAPINE FUMARATE 86429707564 Michaela Wynne CNA METRONIDAZOLE 500 MG TABS METRONIDAZOLE 03952554089 Michaela Wynne CNA SULFAMETHOXAZOLE-TRIMETHOPRIM 800-160 MG TABS SULFAMETHOXAZOLE- TRIMETHOPRIM 73138404832 Michaela Wynne CNA BYDUREON 2 MG PEN EXENATIDE 37864618693 Michaela Wynne CNA LORAZEPAM 1 MG TABS LORAZEPAM 29153130764 Michaela Wynne CNA METFORMIN HCL 500 MG TABS METFORMIN HCL 68574208344 Michaela Wynne CNA GLIMEPIRIDE 1 MG TABS GLIMEPIRIDE 79547316314 Michaela Wynne CNA WOMEN'S ONE A DAY MULTIVITAMIN WOMEN'S ONE A DAY MULTIVITAMIN Michaela Wynne CNA Medications Administered No information available. Allergies, Adverse Reactions, Alerts Observed no known allergies at Results Date Name Value Unit Range Flag Description Office Visit: New Lumbar Spine Post Op from Dr Panda, SX: 01/03/2017, now h... 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, [address], [place], [address], Procedures Code Procedure Name Date Entry Date CPT-1111F Discharge medications reconciled w/ current medication list CPT-G8730 Pain assessment documented as positive and f/u plan is documented CPT-1130F Back pain and function assessed CPT-2040F PE on initial visit for low back pain performed CPT-4248F counseled during the initial visit for back pain against bed rest > 4 days CPT-94150 Lumbar Spine 4-6 Views CPT-1111F Discharge medications reconciled w/ current medication list CPT-20945 Lumbar Spine 4-6 Views CPT-68458 Lumbar Spine 4-6 Views REF MD SEND LETTER TO REF CPT-74467 Lumbar Spine 4-6 Views Vital Signs Date Name Value Unit Description BMI (Body Mass Index) 47.92 kg/m2 Body Mass Index [Ratio] BP Diastolic 86 mm[Hg] blood pressure, diastolic - 8462-4 BP Systolic 110 mm[Hg] blood pressure, systolic - 8480-6 Heart Rate 83 /min pulse rate E&M - 8867-4 Height 65 [in_us] height E&M - 8302-2 Weight Measured 288 [lb_av] weight E&M - 3141-9 Encounters Code Encounter Date Provider Facility CPT-02577 73940- Est Level IV Basilio Ponce MD [facility] CPT-72717 10792- New Level III Puma Carballo MD [facility] CPT-38478 53864- Est Level III Puma Carballo MD [facility] Social History Concept Description Observation Name Observation Value Units Start Date Alcohol use ETOH USE No Never smoker SMOK STATUS Never smoker Alcohol use ETOH USE No Never smoker SMOK STATUS Never smoker Alcohol use ETOH USE No Never smoker SMOK STATUS Never smoker
--- OUTSIDE RECORDS SUMMARY | 2019-02-09 20:07 | XMS REPORT ---
Author Author BLANCO MARTE [facility] [place] eClinicalWorks Address Unknown Phone Unavailable Care Team Providers Care Deep Fryer Assembler Name Role Phone BLANCO MARTE CP Unavailable Allergies, Adverse Reactions, Alerts Substance Reaction Event Type N.K.D.A. Info Not Available Non Drug Allergy Problems Problem Type Condition Code Onset Dates Condition Status Assessment Schizophrenia F20.9 Active Assessment Major depression, recurrent F33.9 Active Assessment Posttraumatic stress disorder F43.10 Active Medications Medication Code System Code Instructions Start Date End Date Status Dosage Lorazepam [facility] [address]-03 1 MG Orally Twice a day April 07, 2015 1 tablet as needed Trileptal [facility] [address]-64 600 MG Orally 1 tablet twice a day Aug 11, 2015 as directed Glimepiride [facility] [address]-64 2 MG Orally 2 times a day 1 tablet with breakfast or the first main meal of the day Lyrica [facility] [address]-34 100 MG Orally 3 times a day 1 capsule Loxapine Succinate [facility] [address]-01 10 MG Orally one capsule in am one capsule at 5 pm three capsles at bedtime January 28, 2016 as directed Trazodone HCl [facility] [address]-47 150 MG Orally Once a day April 07, 2015 1 tablet at bedtime as needed Bydureon [facility] [address]-43 2 MG Subcutaneous once weekly 1 injection Nabumetone [facility] [address]-56 500 MG Orally Twice a day 1 tablet Actos [facility] [address]-29 45 MG Orally Once a day 1 tablet Metformin HCl [facility] [address]-82 500 MG Orally 4 times a day 1 tablet with meals Brintellix [facility] [address]-68 20 MG Orally Once a day Jun 11, 2015 1 tablet Procedures Procedure Coding System Code Date Office Visit, Est Pt., Level 3 CPT-4 92604 January 28, 2016 Vital Signs Date/Time: January 28, 2016 Cardiac Monitoring Heart Rate 92 bpm Weight 325.8 lbs Height 67 in BMI 51.02 Index Blood Pressure Diastolic 80 mmHg Blood Pressure Systolic 118 mmHg Results No Known Results Summary Purpose eClinicalWorks Submission
--- OUTSIDE RECORDS SUMMARY | 2019-02-09 20:07 | XMS REPORT ---
Author Author BLANCO Cha Organization [facility] Address Unknown Care Team Providers Care Street Light Cleaner Name Role Phone BLANCO Cha Unavailable PROBLEMS Type Condition ICD9-CM Code [id number] Code Onset Dates Condition Status SNOMED Code Problem Major depression, recurrent F33.9 Active 04080042 Problem Schizoaffective disorder, bipolar type F25.0 Active 88522627 Problem Panic disorder F41.0 Active 720248079 Problem Schizophrenia F20.9 Active 86149858 Problem Posttraumatic stress disorder F43.10 Active 19581856 Problem Dyslexia R48.0 Active 16040490 Problem Heroin use disorder, severe, 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
--- OUTSIDE RECORDS SUMMARY | 2019-02-09 20:08 | XMS REPORT | Clinical Summary ---
Author Author Sophy Viera Organization [facility], [facility] Address [address] [place] [address] Phone Care Team Providers Care Fiscal Services Director Name Role Phone Sophy Viera Unavailable Conditions or Problems Problem Name Problem Code Onset Date Status Entry Date Provider Comment Standard Description Annotate Gluteal pain 986179562 (SNOMED CT) Active Reena Hoffmann Pain in buttock Lumbar spine instability 973481550 (SNOMED CT) Active Reena Hoffmann Lumbar spine instability Leg pain, left 417346849 (SNOMED CT) Active Reena Hoffmann Pain in left lower limb Back pain, low 276756558 (SNOMED CT) Active Reena Hoffmann Low back pain Back pain, lumbosacral, chronic 407339570 (SNOMED CT) [facility] Arthrodesis status 119034037 (SNOMED CT) Active [facility] H/O: arthrodesis Medications Medication Instructions Start Date Stop Date Generic Name [facility] Provider FLUOXETINE HCL 40 MG CAPS FLUOXETINE HCL 41221899480 Michaela Wynne CNA QUETIAPINE FUMARATE 300 MG TABS QUETIAPINE FUMARATE 37751305943 Michaela Wynne CNA METRONIDAZOLE 500 MG TABS METRONIDAZOLE 93651453682 Michaela Wynne CNA SULFAMETHOXAZOLE-TRIMETHOPRIM 800-160 MG TABS SULFAMETHOXAZOLE- TRIMETHOPRIM 08131831705 Michalea Wynne CNA BYDUREON 2 MG PEN EXENATIDE 37244411924 Michaela Wynne CNA LORAZEPAM 1 MG TABS LORAZEPAM 53037108325 Michaela Wynne CNA METFORMIN HCL 500 MG TABS METFORMIN HCL 66669375494 Michaela Wynne CNA GLIMEPIRIDE 1 MG TABS GLIMEPIRIDE 56242742535 Michaela Wynne CNA WOMEN'S ONE A DAY [...] Carballo 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 smoker Tobacco smoking status NHIS CARD RSK GRP No cardiac risk group Plan of Care Type Date Detail Appointment 01:45 [place], [address], [address], [place], [address], Procedures Code Procedure Name Date Entry Date CPT-1111F Discharge medications reconciled w/ current medication list CPT-G8730 Pain assessment documented as positive and f/u plan is documented CPT-1130F Back pain and function assessed CPT-2040F PE on initial visit for low back pain performed CPT-4248F counseled during the initial visit for back pain against bed rest > 4 days CPT-23264 Lumbar Spine 4-6 Views CPT-1111F Discharge medications reconciled w/ current medication list CPT-64185 Lumbar Spine 4-6 Views CPT-87179 Lumbar Spine 4-6 Views REF MD SEND LETTER TO REF CPT-67543 Lumbar Spine 4-6 Views Vital Signs Date [...] 3141-9 Encounters Code Encounter Date Provider Facility CPT-79571 32981- Est Level IV Basilio Ponce MD [facility], [facility] CPT-50707 40355- New Level III Puma Carballo MD [facility], [facility] CPT-18442 73409- Est Level III Puma Carballo MD [facility], [facility] Social History Concept Description Observation Name Observation Value Units Start Date Alcohol use ETOH USE No Never smoker SMOK STATUS Never smoker Alcohol use ETOH USE No Never smoker SMOK STATUS Never smoker Alcohol use ETOH USE No Never smoker SMOK STATUS Never smoker
--- OUTSIDE RECORDS SUMMARY | 2019-02-09 20:08 | XMS REPORT | Continuity of Care Document ---
Author Organization Unknown Address Unknown Allergies Active Description Code Type Severity Reaction Onset Reported/Identified Relationship to Patient Clinical Status Yes No Known Drug Intolerances No Known Drug Intolerances Drug Allergy Unknown N/A 06/11/1997 Yes No Known Drug Allergies No Known Drug Allergies Drug Allergy Unknown . Medications There is no data. 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, LUMBAR REG 01/03/2017 Panda Panda R00.0 TACHYCARDIA, UNSPECIFIED 01/03/2017 Panda Panda Z90.710 ACQUIRED ABSENCE OF BOTH CERVIX AND UTERUS Procedures Code Description Performed By Performed On 2EO06F4 FUSION LUMSAC JT W INTBD FUS DEV, POST APPR P Farzad DUMONT Thomas 2016 [id number] FUSION LUMSAC JT W INTBD FUS DEV, POST APPR A Farzad DUMONT Thomas 2016 [id number] RESECTION OF LUMBOSACRAL DISC, OPEN APPROACH Panda Panda 01/03/2017 Results Test Result Range GLUCOSE (POC) - 01/03/17 10:35 GLUCOSE (POC) 185 mg/dL 70-99 MRSA SURVEILLANCE SCREEN - 01/03/17 10:39 Microbiology GLUCOSE (POC) - 01/03/17 15:51 GLUCOSE (POC) 122 mg/dL - GLUCOSE (POC) - 01/03/17 17:30 GLUCOSE (POC) 129 mg/dL 70-99 GLUCOSE (POC) - 01/03/17 21:34 GLUCOSE (POC) 284 mg/dL 70-99 CBC - 01/04/17 05:06 MEAN CELL HGB 28.9 pg 27.0-33.0 MEAN CELL HGB CONCENTRATION 33.0 g/dL 32.0-37.0 MEAN CELL VOLUME 87.6 fl 80.0-100.0 RED BLOOD CELL 3.80 m/cumm 4.00-6.00 RED CELL DISTRIBUTION WIDTH 14.0 % 11.0-15.6 WHITE BLOOD CELL 12.2 k/cumm 5.0-10.0 HEMOGLOBIN 11.0 gm/dL 12.0-16.0 HEMATOCRIT 33.3 % 37.0-47.0 PLATELET COUNT 243 k/cumm 150-400 METABOLIC PANEL, BASIC - 01/04/17 05:06 POTASSIUM 3.9 mmol/L 3.5-5.3 EST GFR (MDRD) > 60 mL/min > 59 ANION GAP 6 mmol/L 5-15 EST CrCl (CG) > 60 mL/min > 59 GLUCOSE 160 mg/dL -99 CALCIUM 8.1 mg/dL 8.5-10.1 BLOOD UREA NITROGEN 7 mg/dL 7-20 CREATININE 0.6 mg/dL 0.6-1.0 SODIUM 138 mmol/L 135-148 CHLORIDE 107 mmol/L 98-110 CARBON DIOXIDE 25 mmol/L 21-32 MAGNESIUM - 01/04/17 05:06 MAGNESIUM 1.8 mg/dL 1.8-2.4 GLUCOSE (POC) - 01/04/17 06:18 GLUCOSE (POC) 152 mg/dL -99 GLUCOSE (POC) - 01/04/17 11:43 GLUCOSE (POC) 194 mg/dL -99 GLUCOSE (POC) - 01/04/17 15:13 GLUCOSE (POC) 213 mg/dL 70-99 GLUCOSE (POC) - 01/04/17 19:55 GLUCOSE (POC) 294 mg/dL 70-99 CBC - 01/05/17 05:09 MEAN CELL HGB 28.8 pg 27.0-33.0 MEAN CELL HGB CONCENTRATION 32.9 g/dL 32.0-37.0 MEAN CELL VOLUME 87.4 fl 80.0-100.0 RED BLOOD CELL 3.58 m/cumm 4.00-6.00 RED CELL DISTRIBUTION WIDTH 13.8 % 11.0-15.6 WHITE BLOOD CELL 12.2 k/cumm 5.0-10.0 HEMOGLOBIN 10.3 gm/dL 12.0-16.0 HEMATOCRIT 31.3 % 37.0-47.0 PLATELET COUNT 229 k/cumm 150-400 GLUCOSE (POC) - 01/05/17 06:20 GLUCOSE (POC) 207 mg/dL 70-99 GLUCOSE (POC) - 01/05/17 12:13 GLUCOSE (POC) 219 mg/dL 70-99 GLUCOSE (POC) - 01/05/17 15:36 GLUCOSE (POC) 172 mg/dL 70-99 GLUCOSE (POC) - 01/05/17 21:27 GLUCOSE (POC) 278 mg/dL 70-99 GLUCOSE (POC) - 01/06/17 05:20 GLUCOSE (POC) 163 mg/dL 70-99 GLUCOSE (POC) - 01/06/17 11:05 GLUCOSE (POC) 208 mg/dL 70-99 GLUCOSE (POC) - 01/06/17 18:31 GLUCOSE (POC) 206 mg/dL 70-99 GLUCOSE (POC) - 01/06/17 20:56 GLUCOSE (POC) 251 mg/dL 70-99 GLUCOSE (POC) - 01/06/17 22:31 GLUCOSE (POC) 213 mg/dL 70-99 GLUCOSE (POC) - 01/07/17 06:19 GLUCOSE (POC) 136 mg/dL 70-99 GLUCOSE (POC) - 01/07/17 10:19 GLUCOSE (POC) 158 mg/dL 70-99 GLUCOSE (POC) - 01/07/17 15:52 GLUCOSE (POC) 177 mg/dL 70-99 Radiology Report from [facility] on 01/03/2017 17:27:00 DIAGNOSTIC IMAGING REPORT [facility] - [address] [address] PHONE #: [phone] FAX #: [phone] ------- Name: MARÍA JUNIOR Loc: W.1214 F Radiology No: [id number] : 1984 Age: 31 Sex: F Status: ADM IN Unit No: [id number] Phys: Panda Maldonado DO Acct: [id number] Reason For Exam: L5-S1 FUSION Exam Date: 01/03/2017 EXAMS: CPT CODE: [id number] LUMBAR SPINE 2-3 VIEWS 71647 [id number] IMAGE INT/UP TO ONE HOUR 69242 REASON FOR EXAM: L5-S1 FUSION. Initial encounter. TIME OF EXAM: 01/03/2017 5:02 PM COMPARISON: None. FINDINGS: Intraoperative fluoroscopy was provided by the radiology department for the patient's operative procedure. 3 fluoroscopy stored intraoperative images were obtained during this L5-S1 fusion procedure. The imaging detail is suboptimal due to fluoroscopic stored technique. FLUOROSCOPY TIME: 90.1 seconds IMPRESSION: Fluoroscopy provided for this L5-S1 fusion procedure. at 1726 Reported and signed by: LORA CARPENTER MD CC: Panda Panda DO Technologist: SANJU PALACIOS Transcribed Date/Time: 01/03/2017 (1723)Martial Arts Instructor: ERASMO Printed Date/Time: 01/03/2017 (4177) BATCH NO: N/A PAGE 1 Signed Report Radiology Report from [facility] on 01/03/2017 17:27:00 DIAGNOSTIC IMAGING REPORT [facility] - [address] [address] PHONE #: [phone] FAX #: [phone] ------- Name: MARÍA JUNIOR Loc: W.1214 F Radiology No: [id number] : 1984 Age: 31 Sex: F Status: ADM IN Unit No: [id number] Phys: Panda Maldonado DO Acct: [id number] Reason For Exam: L5-S1 FUSION Exam Date: 01/03/2017 EXAMS: CPT CODE: [id number] LUMBAR SPINE 2-3 VIEWS 15583 [id number] IMAGE INT/UP TO ONE HOUR 32647 REASON FOR EXAM: L5-S1 FUSION. Initial encounter. TIME OF EXAM: 01/03/2017 5:02 PM COMPARISON: None. FINDINGS: Intraoperative fluoroscopy was provided by the radiology department for the patient's operative procedure. 3 fluoroscopy stored intraoperative images were obtained during this L5-S1 fusion procedure. The imaging detail is suboptimal due to fluoroscopic stored technique. FLUOROSCOPY TIME: 90.1 seconds IMPRESSION: Fluoroscopy provided for this L5-S1 fusion procedure. at 1721 Reported and signed by: LORA CARPENTER MD CC: Panda Panda DO Technologist: SANJU CULVER; STEW PALACIOS Transcribed Date/Time: 01/03/2017 (172)Martial Arts Instructor: ERASMO Printed Date/Time: 01/03/2017 (0626) BATCH NO: N/A PAGE 1 Signed Report Encounters ACCT No. Visit Date/Time Discharge Status Pt. Type Provider Facility Loc./Unit Complaint [id number] 01/03/2017 09:43:00 01/07/2017 18:00:[address] [facility] W.9TN
--- OUTSIDE RECORDS SUMMARY | 2019-02-09 20:08 | XMS REPORT | Clinical Summary ---
Author Author TIMMY Santos Melissa [facility], [facility] Address [address] [place] [address] Phone Care Team Providers Care Marine Engine Driver Name Role Phone TIMMY Santos Melissa Unavailable Conditions or Problems Problem Name Problem Code Onset Date Status Entry Date Provider Comment Standard Description Annotate Lumbar spondylolisthesis 183495463 (SNOMED CT) Active Reena Hoffmann Spondylolisthesis Gluteal pain 074049831 (SNOMED CT) Active Reena Hoffmann Pain in buttock Lumbar spine instability 768168927 (SNOMED CT) Active Reena Hoffmann Lumbar spine instability Leg pain, left 539588363 (SNOMED CT) Active Reena Hoffmann Pain in left lower limb Back pain, low 508689813 (SNOMED CT) Active Reena Hoffmann Low back pain Back pain, lumbosacral, chronic 675500857 (SNOMED CT) Active Justa Hayes [facility] Chronic low back pain Arthrodesis status 537296882 (SNOMED CT) Active IRMA Rosa H/O: arthrodesis Medications Medication Instructions Start Date Stop Date Generic Name [facility] Provider FLUOXETINE HCL 40 MG CAPS FLUOXETINE HCL 14591496194 Michaela Wynne CNA QUETIAPINE FUMARATE 300 MG TABS QUETIAPINE FUMARATE 96002207279 Michaela Wynne CNA METRONIDAZOLE 500 MG TABS METRONIDAZOLE 63706799953 Michaela Wynne CNA SULFAMETHOXAZOLE-TRIMETHOPRIM 800-160 MG TABS SULFAMETHOXAZOLE- TRIMETHOPRIM 89767584183 Michaela Wynne CNA BYDUREON 2 MG PEN EXENATIDE 19501803225 Michaela Wynne CNA LORAZEPAM 1 MG TABS LORAZEPAM 03260773445 Michaela Wynne CNA METFORMIN HCL 500 MG TABS METFORMIN HCL 77379688351 Michaela Wynne CNA GLIMEPIRIDE 1 MG TABS GLIMEPIRIDE 32837288044 Michaela Wynne CNA WOMEN'S ONE A DAY [...] of current medications ( procedure) Office Visit: Review Ct-Myelo done at [facility] on 11/16/17. SMOK STATUS Never smoker Tobacco smoking status NHIS CARD RSK GRP No cardiac risk group Plan of Care No information available. Procedures Code Procedure Name Date Entry Date CPT-G8730 Pain assessment documented as positive and f/u plan is documented CPT-1130F Back pain and function assessed CPT-2040F PE on initial visit for low back pain performed CPT-4248F counseled during the initial visit for back pain against bed rest > 4 days CPT-G8730 Pain assessment documented as positive and f/u plan is documented CPT-1111F Discharge medications reconciled w/ current medication list CPT-G8730 Pain assessment documented as positive and f/u plan is documented CPT-1130F Back pain and function assessed CPT-2040F PE on initial visit for low back pain performed CPT-4248F counseled during the initial visit for back pain against bed rest > 4 days CPT-68851 Lumbar Spine 4-6 Views CPT-1111F Discharge medications reconciled w/ current medication list CPT-83104 Lumbar Spine 4-6 Views CPT-74446 Lumbar Spine 4-6 Views REF SEND LETTER TO REF CPT-28154 Lumbar Spine 4-6 Views Vital Signs Date [...] 3141-9 Encounters Code Encounter Date Provider Facility CPT-30501 69046- Est Level IV TIMMY Gonzalez [facility], [facility] CPT-66544 03312- Est Level IV Basilio Ponce MD [facility], [facility] CPT-74065 22368- New Level III Puma Carballo MD [facility], [facility] CPT-21618 07408- Est Level III Puma Carballo MD [facility], [facility] Social History Concept Description Observation Name Observation Value Units Start Date Alcohol use ETOH USE No Never smoker SMOK STATUS Never smoker Alcohol use ETOH USE No Never smoker SMOK STATUS Never smoker Alcohol use ETOH USE No Never smoker SMOK STATUS Never smoker Alcohol use ETOH USE No Never smoker SMOK STATUS Never smoker
--- OUTSIDE RECORDS SUMMARY | 2019-02-09 20:08 | XMS REPORT | Clinical Summary ---
Author Author TIMMY Santos Melissa [facility], [facility] Address [address] [place] [address] Phone Care Team Providers Care Manager Mutual Fund Name Role Phone TIMMY Santos Melissa Unavailable Conditions or Problems Problem Name Problem Code Onset Date Status Entry Date Provider Comment Standard Description Annotate Lumbar spondylolisthesis 793218586 (SNOMED CT) Active Reena Hoffmann Spondylolisthesis Gluteal pain 003446581 (SNOMED CT) Active Reena Hoffmann Pain in buttock Lumbar spine instability 643141524 (SNOMED CT) Active Reena Hoffmann Lumbar spine instability Leg pain, left 295494671 (SNOMED CT) Active Reena Hoffmann Pain in left lower limb Back pain, low 892690050 (SNOMED CT) Active Reena Hoffmann Low back pain Back pain, lumbosacral, chronic 659690579 (SNOMED CT) Active Justa Hayes [facility] Chronic low back pain Arthrodesis status 093840641 (SNOMED CT) Active IRMA Rosa H/O: arthrodesis Medications Medication Instructions Start Date Stop Date Generic Name [facility] Provider FLUOXETINE HCL 40 MG CAPS FLUOXETINE HCL 05897410388 Michaela Wynne CNA QUETIAPINE FUMARATE 300 MG TABS QUETIAPINE FUMARATE 60887514950 Michaela Wynne CNA METRONIDAZOLE 500 MG TABS METRONIDAZOLE 19939304236 Michaela Wynne CNA SULFAMETHOXAZOLE-TRIMETHOPRIM 800-160 MG TABS SULFAMETHOXAZOLE- TRIMETHOPRIM 81233006813 Michaela Wynne CNA BYDUREON 2 MG PEN EXENATIDE 05576900187 Michaela Wynne CNA LORAZEPAM 1 MG TABS LORAZEPAM 55660855787 Michaela Wynne CNA METFORMIN HCL 500 MG TABS METFORMIN HCL 21800079595 Michaela Wynne CNA GLIMEPIRIDE 1 MG TABS GLIMEPIRIDE 55510647040 Michaela Wynne CNA WOMEN'S ONE A DAY [...] procedure) Office Visit: Review Ct-Myelo done at [facility] on 11/16/17. SMOK STATUS Never smoker [...] pain against bed rest > 4 days CPT-33743 Lumbar Spine 4-6 Views CPT-1111F Discharge medications reconciled w/ current medication list CPT-73185 Lumbar Spine 4-6 Views CPT-92722 Lumbar Spine 4-6 Views REF SEND LETTER TO REF CPT-53965 Lumbar Spine 4-6 Views Vital Signs Date [...] 3141-9 Encounters Code Encounter Date Provider Facility CPT-18236 39394- Est Level IV TIMMY Gonzalez [facility], [facility] CPT-84855 01573- Est Level IV Basilio Ponce MD [facility], [facility] CPT-56847 80474- New Level III Puma Carballo MD [facility], [facility] CPT-00190 02520- Est Level III Puma Carballo MD [facility], [facility] Social History Concept Description Observation Name Observation Value Units Start Date Alcohol use ETOH USE No Never smoker SMOK STATUS Never smoker Alcohol use ETOH USE No Never smoker SMOK STATUS Never smoker Alcohol use ETOH USE No Never smoker SMOK STATUS Never smoker Alcohol use ETOH USE No Never smoker SMOK STATUS Never smoker
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
[2019-02-09] MEDS ORDERED: ALPRAZolam 0.5 MG (XANAX) TAB PO SCH (20:15)
[2019-02-09] MEDS ORDERED: KETOROLAC 60 MG/2 ML VIAL IM ONE (20:15)
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
[2019-02-09] MEDS ORDERED: METH-313 PO (21:03)
[2019-02-09] MEDS ORDERED: NAPR-1071 PO (21:03)
[2019-02-09 21:14] VITALS: BP 135/98
== END 2019-02-09 21:15 | disposition home or self-care (01) ==
LOC: EDUNIT# 19:57 → ER 19:58
DX: M54.5 Low back pain (principal); G89.29 Other chronic pain; F17.210 Nicotine dependence, cigarettes, uncomplicated; Y08.89XA Assault by other specified means, initial encounter
CPT/HCPCS: 72128; 72131

== ENCOUNTER 2019-05-01 19:30 | Emergency (ER) | payer MEDICAID ==
[~2019-05-01] VITALS: Ht 165.1 cm; Wt 117.9 kg
[~2019-05-01 19:30] MED LIST changes: +METH-313 PO; +NAPR-1071 PO
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
--- OUTSIDE RECORDS SUMMARY | 2019-05-01 19:35 | XMS REPORT ---
Author Author TRISTEN MORGAN Organization [facility] Address [address] [place] [address] Care Team Providers Care Knitting Machine Operator Automatic Name Role Phone TRISTEN MORGAN Unavailable PROBLEMS Type Condition ICD9-CM Code MWB63-ME Code Onset Dates Condition Status SNOMED Code Problem Major depression, recurrent F33.9 Active 41002429 Problem Posttraumatic stress disorder F43.10 Active 05489999 Problem Schizophrenia F20.9 Active 11216220 Problem Type 2 diabetes mellitus without complication, without long-term current use of insulin E11.9 Active 927231310 Problem Uncontrolled type 2 diabetes mellitus with hyperglycemia E11.65 Active 190016544 Problem Panic disorder F41.0 Active 716152824 Problem Schizoaffective disorder, bipolar type F25.0 Active 56252449 Problem Dyslexia R48.0 Active 70406160 Problem Heroin use disorder, severe, 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 Active 33378033 ALLERGIES No Information ENCOUNTERS Encounter Location Date Diagnosis [place] [address] [address] Mar, [place] [address] [address] Mar, [place] [address] [place] [id number] [place] [address] February, Morbid obesity E66.01 and Uncontrolled type 2 diabetes mellitus with hyperglycemia E11.65 [place] [address] [address] Dec, Uncontrolled type 2 diabetes mellitus with hyperglycemia E11.65 [place] [address] [address] Nov, Schizophrenia F20.9 ; Posttraumatic stress disorder F43.10 ; Panic disorder F41.0 ; Heroin use disorder, severe, 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 and BMI 40.0-44.9, adult Z68.41 [place] [address] [place] [id number] [place] [address] Oct, Uncontrolled type 2 diabetes mellitus with hyperglycemia E11.65 [place] [address] [place] [id number] [place] [address] Sep, [facility] [address] [address] Sep, [place] [address] [place] [id number] [place] [address] Sep, [place] [address] [address] Jul, [place] [address] [place] [id number] [place] [address] Jul, [place] [address] [place] [id number] [place] [address] Jul, Schizophrenia F20.9 ; Posttraumatic stress disorder F43.10 ; Panic disorder F41.0 and Heroin use disorder, severe, 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 [place] [address] [place] [id number] [place] [address] Jun, History of lumbar laminectomy Z98.890 and Back pain at L4-L5 level M54.5 [place] [address] [place] [id number] [place] [address] May, Contusion of abdominal wall, initial encounter S30.1XXA [place] [address] [place] [id number] [place] [address] Apr, Schizophrenia F20.9 ; Posttraumatic stress disorder F43.10 ; Panic disorder F41.0 and Heroin use disorder, severe, 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 [place] [address] [place] [id number] [place] [address] February, [place] [address] [place] [address] February, Schizophrenia F20.9 ; Posttraumatic stress disorder F43.10 ; Panic disorder F41.0 ; Heroin use disorder, severe, 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 and BMI 40.0-44.9, adult Z68.41 [place] [address] [place] [id number] [place] [address] Jan, [place] [address] [place] [id number] [place] [address] Jan, Type 2 diabetes mellitus without complication, without long-term current use of insulin E11.9 [place] [address] [address] Jan, Major depression, recurrent F33.9 [place] [address] [place] [id number] [place] [address] Jan, Establishing care with new doctor, encounter for Z76.89 ; Major depression, recurrent F33.9 ; Posttraumatic stress disorder F43.10 ; Schizoaffective disorder, bipolar type F25.0 ; Heroin use disorder, severe, 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 ; Unexplained weight loss R63.4 and Type 2 diabetes mellitus without complication, without long-term current use of insulin E11.9 [place] [address] [place] [address] Nov, [place] [address] [place] [id number] [place] [address] Oct, Schizophrenia F20.9 ; Posttraumatic stress disorder F43.10 ; Panic disorder F41.0 and Heroin use disorder, severe, 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 [place] [address] [place] [id number] [place] [address] Jul, Schizophrenia F20.9 [place] [address] [place] [id number] [place] [address] Jun, Posttraumatic stress disorder F43.10 ; Schizophrenia F20.9 ; Panic disorder F41.0 ; Dyslexia R48.0 and Heroin use disorder, severe, 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 [facility] [address] [place] [address] May, Posttraumatic stress disorder F43.10 ; Schizoaffective disorder, bipolar type F25.0 ; Panic disorder F41.0 ; Dyslexia R48.0 and Heroin use disorder, severe, 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 [facility] [address] [place] [id number] [place] [address] Apr, Posttraumatic stress disorder F43.10 ; Schizoaffective disorder, bipolar type F25.0 ; Panic disorder F41.0 ; Dyslexia R48.0 and Heroin use disorder, severe, 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 [place] [address] [place] [id number] [place] [address] Mar, Schizophrenia F20.9 ; Posttraumatic stress disorder F43.10 and Major depression, recurrent F33.9 [place] [address] [place] [id number] [place] [address] February, [facility] [address] [place] [id number] [place] [address] Oct, Major depression, recurrent F33.9 [place] [address] [place] [id number] [place] [address] Oct, Major depression, recurrent F33.9 ; Schizophrenia F20.9 and Posttraumatic stress disorder F43.10 [place] [address] [place] [id number] [place] [address] Sep, Posttraumatic stress disorder F43.10 ; Schizophrenia F20.9 and Major depressive disorder, recurrent episode with anxious distress F33.9 [facility] [address] [place] [id number] [place] [address] Sep, Schizophrenia F20.9 [facility] [address] [place] [id number] [place] [address] Sep, [facility] [address] [place] [id number] [place] [address] Aug, Posttraumatic stress disorder F43.10 ; Schizophrenia F20.9 and Major depression, recurrent F33.9 [facility] [address] [address] Jun, Posttraumatic stress disorder F43.10 ; Schizophrenia F20.9 and Major depression, recurrent F33.9 [facility] [address] [place] [address] May, Posttraumatic stress disorder F43.10 ; Schizophrenia F20.9 and Major depression, recurrent F33.9 [facility] [address] [place] [address] Apr, Posttraumatic stress disorder F43.10 ; Schizophrenia F20.9 and Major depression, recurrent F33.9 [facility] [address] [address] February, Posttraumatic stress disorder F43.10 ; Schizophrenia F20.9 and Major depression, recurrent F33.9 [facility] [address] [place] [address] Jan, Posttraumatic stress disorder F43.10 ; Schizophrenia F20.9 and Major depression, recurrent F33.9 [facility] [address] [address] Nov, Posttraumatic stress disorder F43.10 and Schizophrenia F20.9 [facility] [address] [address] Sep, [facility] [address] [place] [address] Aug, Posttraumatic stress disorder F43.10 and Schizophrenia F20.9 [facility] [address] [address] Jul, Posttraumatic stress disorder F43.10 and Schizophrenia F20.9 [facility] [address] [place] [address] Jul, [facility] [address] [address] May, [facility] [address] [place] [id number] [place] [address] May, PTSD (post-traumatic stress disorder) 309.81 ; Depressive disorder, not elsewhere classified 311 and Paranoid schizophrenia 295.30 [facility] [address] [place] [id number] [place] [address] Apr, Paranoid schizophrenia 295.30 ; Depressive disorder, not elsewhere classified 311 and PTSD (post-traumatic stress disorder) 309.81 [facility] [address] [place] [id number] [place] [address] Mar, [facility] [address] [place] [id number] [place] [address] Mar, Paranoid schizophrenia 295.30 ; Panic disorder with 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 ; PTSD (post-traumatic stress disorder) 309.81 and Depressive disorder, not elsewhere classified 311 [facility] [address] [address] Nov, [facility] [address] [place] [id number] [place] [address] Apr, [facility] [address] [address] Jan, [facility] [address] [place] [address] Oct, [facility] [address] [address] Sep, [facility] [address] [place] [id number] [place] [address] Sep, [facility] [address] [address] Aug, [facility] [address] [place] [id number] [place] [address] Aug, [facility] [address] [facility] [id number] [address] February, [facility] [address] [facility] [id number] [address] Nov, IMMUNIZATIONS No Known Immunizations SOCIAL HISTORY Never Assessed REASON FOR VISIT Med concerns PLAN OF CARE VITAL SIGNS MEDICATIONS Medication Instructions Dosage Frequency Start Date End Date Duration Status Metformin HCl 500 mg Orally 2 times a day 1 tablet with a meal 12h Dec, 30 day(s) Active RESULTS No Results PROCEDURES [...]
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
[2019-05-01] MEDS ORDERED: HYDROcodone/APAP 5 MG/325 MG (LORTAB) TAB PO ONE (19:45)
[2019-05-01] MEDS ORDERED: CLINDAMYCIN 600 MG/4ML (CLEOCIN) VIAL IM ONE (19:45)
[2019-05-01] MEDS ORDERED: HYDR-4226 PO (19:46)
[2019-05-01] MEDS ORDERED: CLIN300C11 PO (19:47)
--- NOTE | 2019-05-01 19:47 | ED Integumentary General ---
General Chief Complaint: Skin/Wound Problems Stated Complaint: SCAB ON BUTTOCKS Nursing Triage Note: has an abscess on the left buttox. Pt states it is draining, increased pain Source: patient Exam Limitations: no limitations History of Present Illness Date Seen by Provider: May 01, 2019 Time Seen by Provider: 19:43 Initial Comments To ER with reports of wound to the left buttocks present for 3 days. No fevers or chills. Timing/Duration: getting worse Severity: moderate Associated Symptoms: denies symptoms Allergies and Home Medications Allergies Coded Allergies: No Known Allergies (Unverified Allergy, Mild, 10/18/09) Home Medications Methocarbamol 750 Mg Tablet, 750 MG PO Q4H PRN for BACK PAIN Prescribed by: SERGIO STORY on 02/09/192102 Naproxen 500 Mg Tablet, 500 MG PO BID PRN for PAIN-MODERATE TO SEVERE Prescribed by: SERGIO STORY on 02/09/192102 Naproxen Sodium 220 Mg Tablet, 2 TAB PO BID, (Reported) Patient Home Medication List Home Medication List Reviewed: Yes Review of Systems Review of Systems Constitutional: see HPI EENTM: see HPI Respiratory: no symptoms reported Cardiovascular: no symptoms reported Genitourinary: no symptoms reported Musculoskeletal: no symptoms reported Skin: see HPI Psychiatric/Neurological: No Symptoms Reported Endocrine: No Symptoms Reported Hematologic/Lymphatic: No Symptoms Reported Past Fkajpch-Gdigih-Adxkcg Hx Patient Social History Alcohol Use: Denies Use Recreational Drug Use: No Smoking Status: Current Everyday Smoker Recent Foreign Travel: No Contact w/Someone Who Travel: No Recent Infectious Disease Expo: No Recent Hopitalizations: No Past Medical History Surgeries: Yes (tubal ligation, BACK SX, BILAT CARPAL TUNNEL) Orthopedic Respiratory: No Cardiac: No Neurological: Yes Reproductive Disorders: No Sexually Transmitted Disease: No Genitourinary: No Gastrointestinal: Yes (GERD) Musculoskeletal: Yes Chronic Back Pain Endocrine: Yes Diabetes, Non-Insulin dep Cancer: No Psychosocial: Yes Sleep Difficulties, Anxiety, Depression Blood Disorders: No Physical Exam Vital Signs Vital Signs - First Documented 05/01/19 19:33 Temp 99.2 Pulse 112 Resp 20 B/P (MAP) 134/100 (111) Pulse Ox 100 O2 Delivery Room Air Capillary Refill : Less Than 3 Seconds General Appearance: WD/WN, no apparent distress Respiratory: no respiratory distress, no accessory muscle use Neurologic/Psychiatric: alert, normal mood/affect, oriented x 3 Skin: normal color, warm/dry Skin Problem Character: abscess Lymphatic: other (area of cellulitis to the left buttocks with a central area of induration measuring about 7 cm, no palpable fluctuance. Within the center of this area of induration is a 2 cm eschar.) Progress/Results/Core Measures Results/Orders My Orders Orders - SERGIO STORY APRN Clindamycin Injection (Cleocin Injection (05/01/19 19:45) Vital Signs/I&O 05/01/19 19:33 Temp 99.2 Pulse 112 Resp 20 B/P (MAP) 134/100 (111) Pulse Ox 100 O2 Delivery Room Air Blood Pressure Mean: 111 Departure Communication (PCP) She would like her antibiotics sent to the [facility] in [place]. Impression Primary Impression: Cellulitis Qualified Codes: L03.317 - Cellulitis of buttock Disposition: HOME, SELF-CARE Condition: Stable Departure-Patient Inst. Decision time for Depature: 19:45 Referrals: [facility]/ (PCP) Primary Care Physician TRISTEN MORGAN (Family) Primary Care Physician Patient Instructions: Cellulitis (Skin Infection), Adult (DC) Add. Discharge Instructions: 1. Medication as directed 2. Return to ER for any concerns 3. Follow-up with your doctor later this week for recheck. This will take at least 2-3 weeks to recover. All discharge instructions reviewed with patient and/or family. Voiced understanding. Scripts Clindamycin HCl (Clindamycin HCl) 300 Mg Capsule 300 MG PO TID, #21 CAP Prov: SERGIO STORY APRN 05/01/19 Hydrocodone/Acetaminophen (Hilo 5-325 Tablet) 1 Each Tablet 1 TAB PO Q6H PRN for PAIN-MODERATE MDD 10 TABS for 7 Days, #14 TAB Prov: SERGIO STORY APRN 05/01/19 SERGIO STORY APRN May 01, 2019 19:47
[2019-05-01 20:18] VITALS: BP 142/68
== END 2019-05-01 20:18 | disposition home or self-care (01) ==
LOC: EDUNIT# 19:30 → ER 19:31
DX: L03.317 Cellulitis of buttock (principal); K21.9 Gastro-esophageal reflux disease without esophagitis; E11.9 Type 2 diabetes mellitus without complications; F41.9 Anxiety disorder, unspecified; F32.9 Major depressive disorder, single episode, unspecified; F17.200 Nicotine dependence, unspecified, uncomplicated; Z98.51 Tubal ligation status
CPT/HCPCS: 96372; 99284

== ENCOUNTER 2019-05-04 17:55 | Emergency (ER) | payer MEDICAID ==
[~2019-05-04] VITALS: Ht 165.1 cm; Wt 119.3 kg
[~2019-05-04 17:55] MED LIST changes: +CLIN300C11 PO; +HYDR-4226 PO
[2019-05-04] MEDS ORDERED: SULF1TAB35 PO (18:30)
--- NOTE | 2019-05-04 18:34 | ED Integumentary General ---
General Chief Complaint: Skin/Wound Problems Stated Complaint: SPIDER BITE Nursing Triage Note: Pt to ED with c/o wound from spider bite to L buttock. Pt reports being treated here and area is not healing. Pt reports drainage. Source: patient, old records Exam Limitations: no limitations History of Present Illness Date Seen by Provider: May 04, 2019 Time Seen by Provider: 18:11 Initial Comments This 34-year-old woman presents to the emergency room with complaints of a wound on her left buttock. This wound started on April 25 or . She presented to the emergency room 3 days ago. At that time she was diagnosed with cellulitis. There was a black eschar in the center of the wound at that time. There was some question of spider bite. Wound did have some drainage at that time and continues to drain now. She has been on clindamycin and also received some antibiotic injections. She was additionally seen in the [facility] clinic by Spencer Patel. The eschar has now sloughed away and she is left with an open wound that is approximately 2 cm x 2 cm. She denies any fever. Patient also has diabetes that has not been well controlled. She reports her blood sugars are usually in the low 200s fasting. She does not check them throughout the day but does check them fasting in the morning. Patient has been cleaning her wound daily with peroxide. Allergies and Home Medications Allergies Coded Allergies: NKANo Known Allergies (Unverified Allergy, Mild, 10/18/09) Home Medications Clindamycin HCl 300 Mg Capsule, 300 MG PO TID Prescribed by: SERGIO STORY on 05/01/191946 Hydrocodone/Acetaminophen 1 Each Tablet, 1 TAB PO Q6H PRN for PAIN-MODERATE Prescribed by: SERGIO STORY on 05/01/191945 Methocarbamol 750 Mg Tablet, 750 MG PO Q4H PRN for BACK PAIN Prescribed by: SERGIO STORY on 02/09/192102 Naproxen 500 Mg Tablet, 500 MG PO BID PRN for PAIN-MODERATE TO SEVERE Prescribed by: SERGIO STORY on 02/09/192102 Naproxen Sodium 220 Mg Tablet, 2 TAB PO BID, (Reported) Sulfamethoxazole/Trimethoprim 1 Each Tablet, 1 EACH PO BID Prescribed by: URSZULA DE LA VEGA on 05/04/19 1830 Patient Home Medication List Home Medication List Reviewed: Yes Review of Systems Review of Systems Constitutional: no symptoms reported EENTM: no symptoms reported Respiratory: no symptoms reported Cardiovascular: no symptoms reported Gastrointestinal: no symptoms reported Genitourinary: no symptoms reported : No Musculoskeletal: no symptoms reported Skin: see HPI Psychiatric/Neurological: No Symptoms Reported Endocrine: See HPI Hematologic/Lymphatic: No Symptoms Reported Past Npzorul-Umdffp-Lqkjru Hx Past Med/Social Hx: Reviewed and Corrections made Patient Social History Recent Foreign Travel: No Contact w/Someone Who Travel: No Recent Infectious Disease Expo: No Recent Hopitalizations: No Past Medical History Surgeries: Yes (tubal ligation, BACK SX, BILAT CARPAL TUNNEL) Orthopedic (back, bilateral carpal tunnel), Tubal Ligation Respiratory: No Cardiac: No Neurological: Yes Reproductive Disorders: No Sexually Transmitted Disease: No Genitourinary: No Gastrointestinal: Yes (GERD) Musculoskeletal: Yes Chronic Back Pain Endocrine: Yes Diabetes, Non-Insulin dep Cancer: No Psychosocial: Yes Sleep Difficulties, Anxiety, Depression Blood Disorders: No Physical Exam Vital Signs Vital Signs - First Documented 05/04/19 18:09 Temp 97.4 Pulse 112 Resp 16 B/P (MAP) 134/100 (111) Pulse Ox 97 O2 Delivery Room Air Capillary Refill : Less Than 3 Seconds General Appearance: WD/WN, no apparent distress HEENT: PERRL/EOMI, normal ENT inspection Neck: normal inspection Cardiovascular: no edema, no murmur, tachycardia (mild) Respiratory: lungs clear, normal breath sounds, no respiratory distress, no accessory muscle use Extremities: normal inspection, no pedal edema Neurologic/Psychiatric: leasing agent II-XII nml as tested, no motor/sensory deficits, alert, normal mood/affect, oriented x 3, EOM palsy, depressed affect Skin: warm/dry, other (there is a cratered wound on the left but not measuring about 2 cm x 2 cm extending into the subcutaneous tissue. There is a small amount of purulent drainage. The surrounding tissue is slightly erythematous and indurated. There appears to be no necrosis or eschar.) Progress/Results/Core Measures Results/Orders My Orders Orders - URSZULA JARVIS MD Wound Culture (05/04/19 18:25) Vital Signs/I&O 05/04/19 05/04/19 18:09 18:44 Temp 97.4 97.4 Pulse 112 112 Resp 16 16 B/P (MAP) 134/100 (111) 134/100 (111) Pulse Ox 97 97 O2 Delivery Room Air Room Air Blood Pressure Mean: 111 Progress Progress Note : Progress Note Wound culture was obtained from the purulent area at the deepest portion of the wound which was almost 1 cm deep. Bactrim was added to her antibiotic regimen. Wound was redressed. Patient is being referred to the wound care clinic for monitoring. I expressed concern over her diabetes management. I have recommended a low carbohydrate low sugar diet and close follow-up with her primary care provider. I also advised her to use a chlorhexidine wash rather than peroxide for wound cleaning. See discharge instructions. Departure Impression Primary Impression: Wound of skin Additional Impressions: Cellulitis Qualified Codes: L03.317 - Cellulitis of buttock Diabetes type 2, uncontrolled Qualified Codes: E11.65 - Type 2 diabetes mellitus with hyperglycemia Disposition: HOME, SELF-CARE Condition: Stable Departure-Patient Inst. Decision time for Depature: 18:28 Referrals: [facility] [place] Primary Care Physician TRISTEN PATEL (Family) Primary Care Physician SANJU TRAN MD Patient Instructions: Cellulitis (Skin Infection), Adult (DC), Spider Bites Add. Discharge Instructions: 1. Change dressing at least once daily or more often if necessary as dressing becomes soiled. 2. You may apply thin layer of antibiotic ointment to the dressing before applying to prevent dressing from sticking to the wound. You do not need to place antibiotic ointment within the wound. 3. Please contact to the wound care clinic on Tuesday morning to schedule a follow-up appointment. The wound care clinic is inside [address] [facility] and can be reached at [phone]. Review wound culture results at your appointment. 4. Add Bactrim to your antibiotic therapy as prescribed. Continue with clindamycin as previously prescribed. 5. Please tightly control your blood sugars with a low carbohydrate and low sugar diet. Drink plenty of water. Please work with your primary care provider on blood sugar management. I would like your fasting blood sugars in the morning to be less than 150. 6. You may take ibuprofen up to 600 mg every 6 hours and Tylenol (acetaminophen) up to 1000 mg every 6 hours as needed for pain. 7. Return to care if you have worsening symptoms including increasing redness, increasing pain, fevers over 100, escalating blood sugars, or other concerns. 8. Avoid use of peroxide on your wound as it may damage healing skin. You may gently wash or rinse the wound with water and chlorhexidine soap daily. This may be done in the shower. All discharge instructions reviewed with patient and/or family. Voiced understanding. Scripts Sulfamethoxazole/Trimethoprim (Bactrim Ds Tablet) 1 Each Tablet 1 EACH PO BID, #14 TAB Prov: URSZULA JARVIS MD 05/04/19 Copy Copies To 1: LUZ ELENA BECK DO Copies To 2: SANJU TRAN MD, JOSHUA T MD May 04, 2019 18:34
[2019-05-04 18:44] VITALS: BP 134/100
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
== END 2019-05-04 18:44 | disposition home or self-care (01) ==
LOC: EDUNIT# 17:55 → ER 17:56
DX: S31.829A Unspecified open wound of left buttock, initial encounter (principal); L03.317 Cellulitis of buttock; E11.9 Type 2 diabetes mellitus without complications; F41.9 Anxiety disorder, unspecified; F32.9 Major depressive disorder, single episode, unspecified; K21.9 Gastro-esophageal reflux disease without esophagitis; Z98.51 Tubal ligation status; Z79.4 Long term (current) use of insulin; X58.XXXA Exposure to other specified factors, initial encounter
CPT/HCPCS: 87070; 87077; 87186; 87205

== ENCOUNTER 2021-03-17 05:39 | Outpatient (CLI) | payer MEDICAID ==
[~2021-03-17] VITALS: Ht 165.1 cm; Wt 102.7 kg
[~2021-03-17 05:39] MED LIST changes: -CLIN300C11 PO; +CLIN300C12 PO; +SULF1TAB35 PO
[2021-03-18] MEDS ORDERED: INSU100V6 SQ (10:40)
[2021-03-18] MEDS ORDERED: QUET300T19 PO (10:40)
[2021-03-18] MEDS ORDERED: MULT-1136 PO (10:40)
[2021-03-18] MEDS ORDERED: LIRA0.6P3 SQ (10:40)
[2021-03-18] MEDS ORDERED: METF-399 PO (10:40)
== END 2021-03-18 11:18 | disposition home or self-care (01) ==
LOC: PREOP 05:39
PROVIDERS: ATTEND Obstetrics & Gynecology
DX: Z01.818 Encounter for other preprocedural examination (principal)

== ENCOUNTER 2021-03-24 08:38 | Day surgery (SDC) | payer MEDICAID ==
[~2021-03-24] VITALS: Ht 165 cm; Wt 102.7 kg
[2021-03-24] VITALS (13 sets, daily range): BP systolic 108–129; BP diastolic 64–85
[~2021-03-24 08:38] MED LIST changes: +ESTRADIOL VAGINAL CREAM 42.5 GM (ESTRACE) VG ONE; +INSU100V6 SQ; +LIDOCAINE/EPI 1%-1:100,000 (XYLOCAINE) 20ML ONE; +LIRA0.6P3 SQ; +METF-399 PO; +MULT-1136 PO; +NS (IVPB) 100 ML ONE; +QUET300T19 PO
[2021-03-24] MEDS ORDERED: VASOPRESSIN INJECTION 20 UNIT/ML VIAL ONE (08:39)
--- NOTE | 2021-03-24 09:10 | Progress Note-Pre Operative ---
Pre-Operative Progress Note H&P Reviewed The H&P was reviewed, patient examined and no changes noted. Date Seen by Provider: Mar 24, 2021 Time Seen by Provider: 09:10 Date H&P Reviewed: Mar 24, 2021 Time H&P Reviewed: 09:00 Pre-Operative Diagnosis: cystocele, stress incontinence, presence of cervix (prolapse of vault and NESTOR Hutchins DO Mar 24, 2021 09:10
[2021-03-24] MEDS ORDERED: LACTATED RINGERS 1,000 ML IV PRN (09:15)
[2021-03-24 09:23] LABS: BASOPHILS # (AUTO) 0.1 10^3/uL (0.0-0.1); BASOPHILS % (AUTO) 0 % (0-10); EOSINOPHILS # (AUTO) 0.3 10^3/uL (0.0-0.3); EOSINOPHILS % (AUTO) 2 % (0-10); HEMATOCRIT 41 % (35-52); HEMOGLOBIN 13.6 g/dL (11.5-16.0); LYMPHOCYTES # (AUTO) 3.7 10^3/uL (1.0-4.0); LYMPHOCYTES % (AUTO) 22 % (12-44); MEAN CORPUSCULAR HEMOGLOBIN 29 pg (25-34); MEAN CORPUSCULAR HGB CONC 33 g/dL (32-36); MEAN CORPUSCULAR VOLUME 88 fL (80-99); MEAN PLATELET VOLUME 11.4 fL (9.0-12.2); MONOCYTES # (AUTO) 0.9 10^3/uL (0.0-1.0); MONOCYTES % (AUTO) 5 % (0-12); NEUTROPHILS % (AUTO) 71 % (42-75); PLATELET COUNT 280 10^3/uL (130-400)
[2021-03-24] MEDS ORDERED: ceFAZolin 2 GM IV Premixed 50 ML ONE (09:28)
[2021-03-24] MEDS ORDERED: metroNIDAZOLE 500MG/100ML IVPB 100 ML ONE (09:28)
[2021-03-24] MEDS ORDERED: proPOfol 200 MG/20 ML (DIPRIVAN) VIAL IV ONE (09:38)
[2021-03-24] MEDS ORDERED: SEVOFLURANE (ULTANE) 15 ML INHAL SOLN ONE (09:38)
[2021-03-24] MEDS ORDERED: ONDANSETRON 4 MG/2 ML (SDV) Z0FRAN ONE (09:38)
[2021-03-24] MEDS ORDERED: ROCURONIUM 10 MG/ML 5 ML SYRINGE IV ONE ×2 (09:38→11:40)
[2021-03-24] MEDS ORDERED: MIDAZOLAM 2 MG/2 ML (VERSED) VIAL ONE (09:39)
[2021-03-24] MEDS ORDERED: fentaNYL INJ 100 MCG/2 ML AMP ONE ×3 (09:39→12:44)
[2021-03-24] MEDS ORDERED: ceFAZolin 2 GM IV Premixed 50 ML IV ONE (09:45)
[2021-03-24] MEDS ORDERED: metroNIDAZOLE 500MG/100ML IVPB 100 ML IV ONE (09:45)
[2021-03-24 09:57] LABS: BAND NEUTROPHILS 3 %; BASOPHILS % (MANUAL) 0 %; EOSINOPHILS % (MANUAL) 2 %; LYMPHOCYTES % (MANUAL) 17 %; MONOCYTES % (MANUAL) 3 %; NEUTROPHILS % (MANUAL) 75 %
[2021-03-24 09:58] LABS: RBC MORPH NORMAL
[2021-03-24 10:24] LABS: BILIRUBIN,URINE NEGATIVE (NEGATIVE); CLARITY,URINE CLEAR; COLOR,URINE YELLOW; GLUCOSE, URINE (UA) 3+ (NEGATIVE); KETONES,URINE NEGATIVE (NEGATIVE); LEUKOCYTE ESTERASE ,URINE NEGATIVE (NEGATIVE); NITRITE,URINE NEGATIVE (NEGATIVE); PROTEIN,URINE NEGATIVE (NEGATIVE)
[2021-03-24 10:31] LABS: BACTERIA,URINE FEW /HPF; WBC,URINE 0-2 /HPF
--- NOTE | 2021-03-24 10:49 | Operative Report ---
Operative Report Date of Procedure/Surgery Mar 24, 2021 Surgeon (s) NESTOR DURON DO Patient Care Coordinator (s): NA Post-Operative Diagnosis cervix, prolapse, stress incontinence Procedure Performed laparoscopy, vaginal trachelectomy, Desara pubovaginal sling Description of Procedure Anesthesia Type: General Estimated blood loss (mL): 200 ml Specimen(s) collected/removed vaginal biopsy Description of the Procedure With informed consent the patient was taken to the operating room where general anesthesia was found to be adequate. She was prepped and draped in the usual sterile fashion. A Maravilla catheter was placed in the bladder. The cervix was visualized and then the anterior lip was clamped with a tenaculum. This showed 3+ prolapse. A Uterine manipulator was placed in the cervix and then attention turned to the abdomen. The umbilicus was injected with lidocaine and a 5 mm skin incision was made. The veress needle was then inserted and intraabdominal placement was confirmed with a saline drop test and a drop in pressure. The abdomen was insufflated to a max imum pressure of 15 mmHg. The 5 mm trocar was inserted under direct visualization with the Optiview. I then inserted the camera and it was determined that there were not any adhesions to the vaginal cuff and the trachelectomy could be performed vaginally. Attention was then returned to the vagina. A leida was placed and then the cervicovaginal junction was injected with dilute vasopressin and a circumferential incision was made with the Bovie. The vaginal epithelium was then pushed back circumferentially until the anterior peritoneum was identified and then entered with Metzenbaum scissors. This incision was extended laterally bluntly and the leida was used to gently retract the bladder. I then entered the posterior culdesac with May scissors and this was extended laterally and a long weighted speculum was inserted. I then used the ligsure to clamp and ligate the uterosacral ligaments, what remained of the cardinal ligament and the uterine artery pedicle remnant. The cervix was then removed and sent for pathology. I then sutured the apices of the vaginal cuff with figure of eight stitches of 3-0 Vicryl. I then closed the peritoneum with a pursestring stitch of 3-0 Vicryl and closed the vaginal cuff horizontally with 0 vicryl. Attention was now turned to the anterior vagina. The vaginal tissue was injected with vasopressin and a midline incision was made. The vaginal epithelium was then dissected off of the underlying Popsicle fascia laterally to the white lines. I then repaired the central defect with 2-0 Vicryl interrupted figure of eight stitches pilcating in the midline. I then trimmed the excess vaginal epithelium. At this point I dissected laterally in the perurethral spaces with metzembaum scissors to the obturator membrane. I then performed the Desura pubovaginal sling in standard fashion, first on the right and then the left, leaving the applicator in placed to allow further tightening as necessary. I performed a routine cystostopy and noted no intravesicular pathology or injury to the bladder. I removed the cystoscope, leaving 2-300 ml fluid in the bladder and performed a Crede maneuver. There was some spontaneous leakage so I tightened the sling to not allow leakage but ensured it was not too tight and was laying f lat in the midurethral space without buckling or twisting. At this point, I removed the Desura applicator. I then closed the vaginal epithelium with 3-0 Vicryl in running fashion. Estrace cream and vaginal packing was now placed. I then turned my attention back to the abdomen and it was reinsufflated with warmed CO2 gas. There was some oozing from the vaginal cuff. I placed two additional trocars, both 5 mm, in the left lower quadrant lateral to the rectus muscles and avoiding the inferior epigastric vessels. I irrigated the pelvis and then cauterized an area of oozing along the vaginal cuff and along the right apex. Once there was hemostasis, I irrigated again. I was able to visualize the ureters bilaterally and there was peristalsis and in t he bladder there had been efflux of urine bilaterally. I suctioned the fluid and then removed the trocars under direct visualization The skin incision were closed with 4-0 Monocryl and the surgifix glue. Bandages were placed. sponge, lap, needles and instrument counts were correct times two. The patient was now awakened and taken to recovery in stable condition. Findings of the Procedure 2-3 + cervical prolapse 2 + cystocele > 45 deg rotation Allergies and Home Medications Allergies Coded Allergies: NKANo Known Allergies (Unverified Allergy, Mild, 10/18/09) Home Medications Acetaminophen 500 Mg Tablet, 1,000 MG PO Q8H Prescribed by: NESTOR DURON on 03/25/21 0810 Canagliflozin 100 Mg Tablet, 100 MG PO DAILY Prescribed by: NESTOR DURON on 03/25/21 1323 Ibuprofen 800 Mg Tablet, 600 MG PO Q6H Prescribed by: NESTOR DURON on 03/25/21 0810 Insulin Glargine,Hum.rec.anlog 100 Unit/1 Ml Vial, 10 UNIT SQ BID Prescribed by: NESTOR DURON on 03/25/21 1322 Metformin HCl 1,000 Mg Tablet, 1,000 MG PO BID, (Reported) Multivitamin 1 Each Tablet, 1 EACH PO DAILY, (Reported) Quetiapine Fumarate 300 Mg Tablet, 750 MG PO HS, (Reported) Patient Home Medication List Home Medication List Reviewed: Yes NESTOR DURON DO Mar 24, 2021 10:49
[2021-03-24] MEDS ORDERED: HYDROmorphone 2 MG/ML VIAL (DILAUDID) ONE (10:53)
[2021-03-24] MEDS ORDERED: inSUlin ASPART (NovoLOG) 1 UNIT/0.01 ML (CHARGE PER UNIT) SC SCH (11:00)
[2021-03-24] MEDS ORDERED: ACETAMINOPHEN 500 MG TAB (TYLENOL) PO SCH (11:00)
[2021-03-24] MEDS ORDERED: KETOROLAC 30 MG/ML VIAL IV SCH (11:00)
[2021-03-24] MEDS ORDERED: GLYCOPYRROLATE 0.2 MG/ML (ROBINUL) 2 ML VIAL ONE (12:11)
[2021-03-24] MEDS ORDERED: NEOSTIGMINE 3 MG/3 ML VIAL ONE (12:11)
[2021-03-24] MEDS ORDERED: LACTATED RINGERS 1,000 ML IV SCH ×2 (13:00)
[2021-03-24] MEDS ORDERED: inSUlin (REGULAR) HUMAN 1 UNIT/0.01 ML (CHARGE PER UNIT) ONE ×2 (13:05→13:08)
[2021-03-24] MEDS: LACTATED RINGERS 1,000 ML IV SCH ×3 (13:17→21:05)
[2021-03-24] MEDS ORDERED: KETOROLAC 30 MG/ML VIAL ONE (13:24)
[2021-03-24] MEDS ORDERED: HYDROmorphone 2 MG/ML VIAL (DILAUDID) IV ONE (13:30)
[2021-03-24] MEDS ORDERED: ONDANSETRON 4 MG/2 ML (SDV) Z0FRAN IVP PRN (13:30)
[2021-03-24] MEDS: inSUlin ASPART (NovoLOG) 1 UNIT/0.01 ML (CHARGE PER UNIT) SC SCH ×2 (15:46→20:50)
[2021-03-24] MEDS: KETOROLAC 30 MG/ML VIAL IV SCH (20:00)
[2021-03-25 06:10] VITALS: BP 87/61
[2021-03-25] MEDS: KETOROLAC 30 MG/ML VIAL IV SCH (06:14)
[2021-03-25] MEDS: inSUlin ASPART (NovoLOG) 1 UNIT/0.01 ML (CHARGE PER UNIT) SC SCH ×2 (06:22→11:36)
--- NOTE | 2021-03-25 08:08 | Progress Note ---
Progress Note Assessment/Plan Date Seen by Provider: Mar 25, 2021 Time Seen by Provider: 07:30 Events since last exam Laboratory Tests Test 03/24/21 08:45 03/24/21 09:00 03/24/21 13:10 03/24/21 13:47 Range/Units Urine Color YELLOW Urine Clarity CLEAR Urine pH 6.0 5-9 Urine Specific [place] 1.015 L 1.016-1.022 Urine Protein NEGATIVE NEGATIVE Urine Glucose (UA) 3+ H NEGATIVE Urine Ketones NEGATIVE NEGATIVE Urine Nitrite NEGATIVE NEGATIVE Urine Bilirubin NEGATIVE NEGATIVE Urine Urobilinogen 0.2 < = 1.0 MG/DL Urine Leukocyte Esterase NEGATIVE NEGATIVE Urine RBC (Auto) NEGATIVE NEGATIVE Urine RBC NONE /HPF Urine WBC 0-2 /HPF Urine Squamous Epithelial Cells 10-25 H /HPF Urine Crystals NONE /LPF Urine Bacteria FEW H /HPF Urine Casts NONE /LPF Urine Mucus SMALL H /LPF Urine Culture Indicated NO White Blood Count 17.0 H 4.3-11.0 10^3/uL Red Blood Count 4.67 3.80-5.11 10^6/uL Hemoglobin 13.6 11.5-16.0 g/dL Hematocrit 41 35-52 % Mean Corpuscular Volume 88 80-99 fL Mean Corpuscular Hemoglobin 29 25-34 pg Mean Corpuscular Hemoglobin Concent 33 32-36 g/dL Red Cell Distribution Width 13.3 10.0-14.5 % Platelet Count 280 130-400 10^3/uL Mean Platelet Volume 11.4 9.0-12.2 fL Immature Granulocyte % (Auto) 0 % Neutrophils (%) (Auto) 71 42-75 % Lymphocytes (%) (Auto) 22 12-44 % Monocytes (%) (Auto) 5 0-12 % Eosinophils (%) (Auto) 2 0-10 % Basophils (%) (Auto) 0 0-10 % Neutrophils # (Auto) 12.0 H 1.8-7.8 10^3/uL Lymphocytes # (Auto) 3.7 1.0-4.0 10^3/uL Monocytes # (Auto) 0.9 0.0-1.0 10^3/uL Eosinophils # (Auto) 0.3 0.0-0.3 10^3/uL Basophils # (Auto) 0.1 0.0-0.1 10^3/uL Immature Granulocyte # (Auto) 0.1 0.0-0.1 10^3/uL Neutrophils % (Manual) 75 % Lymphocytes % (Manual) 17 % Monocytes % (Manual) 3 % Eosinophils % (Manual) 2 % Basophils % (Manual) 0 % Band Neutrophils 3 % Blood Morphology Comment NORMAL Glucometer 309 H 339 H 70-110 MG/DL Test 03/24/21 15:17 03/24/21 20:35 03/24/21 23:24 03/25/21 06:17 Range/Units Glucometer 369 H 295 H 217 H 329 H 70-110 MG/DL Blood sugars way out of range. She was drinking a monster coffee after FS of 330. Has received SSI overnight and restarted her metformin and Levemir (on Lantus at home) She is on Victoza also but did not have her needles and we do not have this on formulary. States her blood sugars are elevated because of "stress". Have requested consultation with Dr. Mcneal. Sees Maritza Ortega APRN in the clinic and told me she has just started the Lantus and was only given enough for 28 days. States last used on Tuesday. In the office she did not give Lantus as a medication she is using. She also said her blood sugars were better controlled. She has not asked for pain medication. Assessment/Plan Blood sugars have been uncontrolled and not improved with the sliding scale. She admits to running out of Lantus. States that she was only given 30 days. Took last dose day prior to surgery. Blood glucose preop was in the 200s. Post op was 308 and she was given IV regular insulin. repeat was 339. When I saw her after that, she was drinking a Moster Coffee and glucose was 369. She obviously needs some dietary education regarding diabetes. Will consult Dr. Mcneal who is on the hospitalist service for blood sugar management and post operative follow up. discussed with Kaylin that her blood sugars need to be better controlled for post operative healing. Blood pressures and pulse were wnl, but has become tachycardic. She is not symptomatic, though felt a little lightheaded last night. Has been up to the bathroom and has voided. Her urine output has been very adequate. CBC today is decreased. Will monitor for s/s syncope and consider transfusion. She has no obvious signs of continued blood loss, so suspect the drop in Hgb is due to inaccurate recording of blood loss at time of surgery and dilution. Will repeat hgb this afternoon. she states she has little pain and feels well. Has ambulated a little but no void yet. Once voids, if asymptomatic and hgb is stable will consider dc home Vitals Last set of Vitals Signs Vital Signs Date Time Temp Pulse Resp B/P (MAP) Pulse Ox O2 Delivery O2 Flow Rate FiO2 03/25/21 06:10 36.3 124 16 87/61 (70) 94 Room Air 03/24/21 14:00 2 I&O I&O Intake and Output 03/25/21 00:00 Intake Total 2810 ml Output Total 1450 ml Balance 1360 ml Intake Oral 1660 ml IV Total 1150 ml Output Urine Total 1450 ml Labs Laboratory Tests 03/24/21 08:45: Urine Color YELLOW, Urine Clarity CLEAR, Urine pH 6.0, Urine Specific [place] 1.015L, Urine Protein NEGATIVE, Urine Glucose (UA) 3+H, Urine Ketones NEGATIVE, Urine Nitrite NEGATIVE, Urine Bilirubin NEGATIVE, Urine Urobilinogen 0.2, Urine Leukocyte Esterase NEGATIVE, Urine RBC (Auto) NEGATIVE, Urine RBC NONE, Urine WBC 0-2, Urine Squamous Epithelial Cells 10-25H, Urine Crystals NONE, Urine Bacteria FEWH, Urine Casts NONE, Urine Mucus SMALLH, Urine Culture Indicated NO 03/24/21 09:00: White Blood Count 17.0H, Red Blood Count 4.67, Hemoglobin 13.6, Hematocrit 41, Mean Corpuscular Volume 88, Mean Corpuscular Hemoglobin 29, Mean Corpuscular Hemoglobin Concent 33, Red Cell Distribution Width 13.3, Platelet Count 280, Mean Platelet Volume 11.4, Immature Granulocyte % (Auto) 0, Neutrophils (%) (Auto) 71, Lymphocytes (%) (Auto) 22, Monocytes (%) (Auto) 5, Eosinophils (%) (Auto) 2, Basophils (%) (Auto) 0, Neutrophils # (Auto) 12.0H, Lymphocytes # (Auto) 3.7, Monocytes # (Auto) 0.9, Eosinophils # (Auto) 0.3, Basophils # (Auto) 0.1, Immature Granulocyte # (Auto) 0.1, Neutrophils % (Manual) 75, Lymphocytes % (Manual) 17, Monocytes % (Manual) 3, Eosinophils % (Manual) 2, Basophils % (Manual) 0, Band Neutrophils 3, Blood Morphology Comment NORMAL 03/24/21 13:10: Glucometer 309H 03/24/21 13:47: Glucometer 339H 03/24/21 15:17: Glucometer 369H 03/24/21 20:35: Glucometer 295H 03/24/21 23:24: Glucometer 217H 03/25/21 06:17: Glucometer 329H Microbiology 03/24/21 MRSA Screen - Final, Complete MRSA not isolated Focused Exam Respiratory: Lungs Clear Cardiovascular: Regular Rate, Rhythm Diagnosis/Problems Diagnosis/Problems (1) INCOMPLETE VAG PROLAPSE, CYSTOCELE, [place] Status: Resolved Resolution Date/Time: 03/25/21 @ 10:40 (2) Poorly controlled diabetes mellitus Status: Chronic NESTOR DURON DO Mar 25, 2021 08:08
[2021-03-25] MEDS ORDERED: ACET-93 PO (08:10)
[2021-03-25] MEDS ORDERED: IBUP-1780 PO (08:10)
--- NOTE | 2021-03-25 08:11 | Discharge Inst-Women's Service ---
Discharge Inst-Women's Serv Depart Medication/Instructions New, Converted or Re-Newed RX: Transmitted to Pharmacy Final Diagnosis cervicovaginal prolapse pubovaginal sling diabetes, poor control Problems Reviewed?: Yes Consults/Follow Up Additional Follow Up: Yes ([address] Killian and 6-8 weeks. Follow up with CBC per Dr. Mcneal) Activity Activity: Activity as Tolerated Driving Instructions: No Driving for 1 Week NO SMOKING: NO SMOKING Nothing Inside Vagina: No Douching, No Central Garage, No Tampons Diet Discharge Diet: No Restrictions, ADA Diet (1800 kcal) Symptoms to Report to : Bleeding Excessive, Pain Increased, Fever Over 101 Degrees F, Vaginal Bleeding Increase, Cramps in Feet or Legs, Vaginal Discharge Foul For Any Problems or Questions: Contact Your Physician Skin/Wound Care Operative Area Clean and Dry: You May Remove Bandage Bathing Instructions: NESTOR Ivory DO Mar 25, 2021 08:11
[2021-03-25] MEDS ORDERED: metFORMIN 500 MG (GLUCOPHAGE) TAB PO SCH (08:15)
--- NOTE | 2021-03-25 08:30 | Anesthesia-General Post-Op ---
General Patient Condition Mental Status/LOC: Same as Preop Cardiovascular: Satisfactory Nausea/Vomiting: Absent Respiratory: Satisfactory Pain: Controlled Complications: Absent Post Op Complications Complications None Follow Up Care/Instructions Patient Instructions None needed. Anesthesia/Patient Condition Patient Condition Patient is doing well, no complaints, stable vital signs, no apparent adverse anesthesia problems. No complications reported per nursing. ABIGAIL ESQUEDA CRNA Mar 25, 2021 08:30
[2021-03-25 09:00] VITALS: BP 95/60
[2021-03-25 09:41] LABS: BASOPHILS % (AUTO) 0 % (0-10); EOSINOPHILS % (AUTO) 0 % (0-10); HEMATOCRIT 27 % (35-52); HEMOGLOBIN 8.9 g/dL (11.5-16.0); LYMPHOCYTES # (AUTO) 3.7 10^3/uL (1.0-4.0); LYMPHOCYTES % (AUTO) 20 % (12-44); MEAN CORPUSCULAR HEMOGLOBIN 30 pg (25-34); MEAN CORPUSCULAR HGB CONC 34 g/dL (32-36); MEAN CORPUSCULAR VOLUME 89 fL (80-99); MEAN PLATELET VOLUME 10.8 fL (9.0-12.2); MONOCYTES # (AUTO) 1.1 10^3/uL (0.0-1.0); MONOCYTES % (AUTO) 6 % (0-12); NEUTROPHILS # (AUTO) 13.9 10^3/uL (1.8-7.8); NEUTROPHILS % (AUTO) 74 % (42-75); PLATELET COUNT 254 10^3/uL (130-400); WHITE BLOOD COUNT 18.8 10^3/uL (4.3-11.0)
[2021-03-25 10:11] LABS: ALANINE AMINOTRANSFERASE 14 U/L (0-55); ALBUMIN 3.2 GM/DL (3.2-4.5); ALKALINE PHOSPHATASE 64 U/L (40-136); BILIRUBIN,TOTAL 0.4 MG/DL (0.1-1.0); BUN/CREATININE RATIO 18; CALCIUM 8.6 MG/DL (8.5-10.1); CARBON DIOXIDE 21 MMOL/L (21-32); CHLORIDE 102 MMOL/L (98-107); CREATININE SERUM 0.73 MG/DL (0.60-1.30); GFR ESTIMATED > 60; GLUCOSE 201 MG/DL (70-105); POTASSIUM 3.6 MMOL/L (3.6-5.0); SODIUM 134 MMOL/L (135-145); TOTAL PROTEIN 5.3 GM/DL (6.4-8.2)
[2021-03-25] MEDS ORDERED: INSU100V6 SQ ×2 (10:50→13:22)
[2021-03-25] MEDS ORDERED: CANA100T PO ×2 (10:50→13:23)
--- NOTE | 2021-03-25 10:51 | Consultation ---
HPI History of Present Illness: 36 yo F that was admitted after vaginal prolapse repair and was found that have uncontrolled blood sugars following surgery. Dr Killian consulted myself on this patient. Patient states that she has not been taking her medications the way they are prescribed because she does not like her primary provider and is unsure with what she has been telling her. Denies any low blood sugars. States that she does not remember what her last A1c was. She does not check her sugars on a regular basis. Denies any DM complications. Source: patient Exam Limitations: no limitations Date seen by provider: Mar 25, 2021 Time Seen by Provider: 08:45 Attending Physician Aubree Killian DO [facility] [place] Consult Date of Admission Home Medications Home Medications Reviewed patient Home Medication Reconciliation performed by pharmacy medication reconciliations domestic technician and/or nursing. Patients Allergies have been reviewed. Allergies Coded Allergies: NKANo Known Allergies (Unverified Allergy, Mild, 10/18/09) BOW-[id number]-Lchmax Hx Patient Social History Drug of Choice: MARIJUANA - LAST USE 03/23/21 Smoking Status: Current Everyday Smoker 2nd Hand Smoke Exposure: Yes Recent Hopitalizations: No Past Medical History IDDM Obesity Family Medical History Significant Family History: No Pertinent Family Hx Review of Systems ([facility]) Constitutional: no symptoms reported; No chills, No fever, No malaise EENTM: no symptoms reported; No mouth pain, No nose congestion, No nose pain Respiratory: no symptoms reported; No cough, No dyspnea on exertion, No short of breath Cardiovascular: no symptoms reported; No chest pain, No edema, No palpitations Gastrointestinal: no symptoms reported; No abdominal pain, No constipation, No diarrhea, No nausea, No vomiting Genitourinary: no symptoms reported; No dysuria, No frequency, No hematuria : No Musculoskeletal: no symptoms reported; No back pain, No joint pain, No muscle pain Skin: no symptoms reported; No lesions, No rash Psychiatric/Neurological: No Symptoms Reported; Denies Numbness, Denies Weakness All Other Systems Reviewed Negative Unless Noted: Yes Physical Exam-([facility]) Physical Exam Vital Signs Capillary Refill : General Appearance: WD/WN, no apparent distress HEENT: PERRL/EOMI Neck: non-tender, full range of motion, supple Respiratory: chest non-tender, lungs clear, normal breath sounds, no respiratory distress, no accessory muscle use Cardiovascular: normal peripheral pulses, regular rate, rhythm, no edema, no murmur Gastrointestinal: normal bowel sounds, non tender, soft, no organomegaly Back: no CVA tenderness, no vertebral tenderness Extremities: normal range of motion, non-tender, normal inspection, no pedal edema, no calf tenderness, normal capillary refill Neurologic/Psychiatric: crab butcher II-XII nml as tested, no motor/sensory deficits, alert, normal mood/affect, oriented x 3 Skin: normal color, warm/dry Lymphatic: no adenopathy Assessment/Plan Assessment/Plan (1) Insulin dependent diabetes mellitus with complications Status: Chronic Assessment & Plan: - Adjusted insulin, discussed the importance of DM control and wound healing, DM nurse education and will have close f.u with DM provider at [facility] - Discussed the need to continue ACEI for kidney protection (2) Poorly controlled diabetes mellitus Status: Chronic ELIZABETH TAPIA MD Mar 25, 2021 10:51
[2021-03-25] MEDS: LACTATED RINGERS 1,000 ML IV SCH (11:43)
[2021-03-25 14:00] VITALS: BP 95/60
[2021-03-25] MEDS ORDERED: IBUPROFEN 800 MG (MOTRIN) TAB PO SCH (14:00)
[2021-03-25 14:47] LABS: BASOPHILS % (AUTO) 0 % (0-10); EOSINOPHILS % (AUTO) 0 % (0-10); HEMATOCRIT 27 % (35-52); HEMOGLOBIN 8.8 g/dL (11.5-16.0); LYMPHOCYTES # (AUTO) 4.7 10^3/uL (1.0-4.0); LYMPHOCYTES % (AUTO) 26 % (12-44); MEAN CORPUSCULAR HEMOGLOBIN 30 pg (25-34); MEAN CORPUSCULAR HGB CONC 33 g/dL (32-36); MEAN CORPUSCULAR VOLUME 91 fL (80-99); MEAN PLATELET VOLUME 11.1 fL (9.0-12.2); MONOCYTES # (AUTO) 1.1 10^3/uL (0.0-1.0); MONOCYTES % (AUTO) 6 % (0-12); NEUTROPHILS # (AUTO) 11.9 10^3/uL (1.8-7.8); NEUTROPHILS % (AUTO) 67 % (42-75); PLATELET COUNT 272 10^3/uL (130-400); WHITE BLOOD COUNT 17.7 10^3/uL (4.3-11.0)
[2021-03-25 17:15] VITALS: BP 95/60
== END 2021-03-25 17:15 | disposition home or self-care (01) ==
LOC: SDC 08:38 → WS 14:02 → SDC 03-25 17:15
PROVIDERS: ATTEND Obstetrics & Gynecology
DX: D18.09 Hemangioma of other sites (principal); N88.8 Other specified noninflammatory disorders of cervix uteri; N39.46 Mixed incontinence; N81.2 Incomplete uterovaginal prolapse; K21.9 Gastro-esophageal reflux disease without esophagitis; E11.40 Type 2 diabetes mellitus with diabetic neuropathy, unspecified; F32.9 Major depressive disorder, single episode, unspecified; F41.9 Anxiety disorder, unspecified; E66.9 Obesity, unspecified; M19.90 Unspecified osteoarthritis, unspecified site; F17.210 Nicotine dependence, cigarettes, uncomplicated; Z79.1 Long term (current) use of non-steroidal anti-inflammatories (NSAID); Z79.899 Other long term (current) drug therapy; Z79.4 Long term (current) use of insulin; Z68.38 Body mass index [BMI] 38.0-38.9, adult; Z90.711 Acquired absence of uterus with remaining cervical stump; Z98.51 Tubal ligation status
CPT/HCPCS: 57240; 57288; 57530; 80053; 81000; 82947 ×2; 83036; 85007; 85025; 85027; 86850; 86900; 86901; 87081; 88305; C1771; 36415

== ENCOUNTER 2021-04-01 18:03 | Emergency (ER) | payer MEDICAID ==
[~2021-04-01] VITALS: Ht 165 cm; Wt 104.0 kg
[~2021-04-01 18:03] MED LIST changes: +ACET-93 PO; +CANA100T PO; -ESTRADIOL VAGINAL CREAM 42.5 GM (ESTRACE) VG ONE; +IBUP-1780 PO; -LIDOCAINE/EPI 1%-1:100,000 (XYLOCAINE) 20ML ONE; -NS (IVPB) 100 ML ONE
[2021-04-01 18:20] LABS: BASOPHILS # (AUTO) 0.1 10^3/uL (0.0-0.1); BASOPHILS % (AUTO) 1 % (0-10); EOSINOPHILS # (AUTO) 0.4 10^3/uL (0.0-0.3); EOSINOPHILS % (AUTO) 3 % (0-10); HEMATOCRIT 32 % (35-52); HEMOGLOBIN 10.1 g/dL (11.5-16.0); LYMPHOCYTES # (AUTO) 4.4 10^3/uL (1.0-4.0); LYMPHOCYTES % (AUTO) 28 % (12-44); MEAN CORPUSCULAR HEMOGLOBIN 30 pg (25-34); MEAN CORPUSCULAR HGB CONC 32 g/dL (32-36); MEAN CORPUSCULAR VOLUME 94 fL (80-99); MEAN PLATELET VOLUME 10.2 fL (9.0-12.2); MONOCYTES # (AUTO) 0.8 10^3/uL (0.0-1.0); MONOCYTES % (AUTO) 5 % (0-12); NEUTROPHILS # (AUTO) 9.5 10^3/uL (1.8-7.8); NEUTROPHILS % (AUTO) 62 % (42-75); PLATELET COUNT 416 10^3/uL (130-400); WHITE BLOOD COUNT 15.3 10^3/uL (4.3-11.0)
--- NOTE | 2021-04-01 18:30 | ED General ---
General Chief Complaint: General Problems/Pain Stated Complaint: POST OP/BLOOD IN URINE Nursing Triage Note: PT AMB TO ROOM 5 PT CO OF HAVING MOD AMT OF VAGINAL OR URINARY BLEEDING. HAD SURGERY ON 03/24/21. PT HAS VERY LARGE AMOUNT OF BRUISING FROM ABOVE UMBILICUS TO THIGH AREA. PT CO OF DIFFERENT TYPE OF PAIN AFTER BLEEDING NOTED THAN PREVIOUS SURGICAL PAIN, STATES ONLY TAKING TYLENOL FOR PAIN. PT STATES BLEEDING STARTED YESTERDAY Nursing Sepsis Screen: No Definite Risk History of Present Illness Date Seen by Provider: Apr 01, 2021 Time Seen by Provider: 18:18 Initial Comments This is a 36-year-old female who presents to the ER with complaints of vaginal bleeding and post-op bruising on abdomen from laparoscopic vaginal trachelectomy & Desara pubovaginal sling on 03/24/[address] Duron. States that her urine has been pinkish-yellow since her procedure until yesterday when she had noticed a pool of blood in the bottom of the stool when she urinated/had BM. States that she did not strain as she has been instructed not to do this. She did call Dr. Duron's office and talk to the nurse about the bruising on her abdomen however did not inform them of the "pool of blood" in the toilet. She denies fever, chills, cough, shortness of breath, nausea, vomiting, abdominal pain. Allergies and Home Medications Allergies Coded Allergies: NKANo Known Allergies (Unverified Allergy, Mild, 10/18/09) Home Medications Acetaminophen 500 Mg Tablet, 1,000 MG PO Q8H Prescribed by: NESTOR DURON on 03/25/21 0810 Canagliflozin 100 Mg Tablet, 100 MG PO DAILY Prescribed by: NESTOR DURON on 03/25/21 1323 Ibuprofen 800 Mg Tablet, 600 MG PO Q6H Prescribed by: NESTOR DURON on 03/25/21 0810 Insulin Glargine,Hum.rec.anlog 100 Unit/1 Ml Vial, 10 UNIT SQ BID Prescribed by: NESTOR DURON on 03/25/21 1322 Metformin HCl 1,000 Mg Tablet, 1,000 MG PO BID, (Reported) Multivitamin 1 Each Tablet, 1 EACH PO DAILY, (Reported) Quetiapine Fumarate 300 Mg Tablet, 750 MG PO HS, (Reported) Patient Home Medication List Home Medication List Reviewed: Yes Review of Systems Review of Systems Constitutional: no symptoms reported EENTM: no symptoms reported Respiratory: no symptoms reported Cardiovascular: no symptoms reported Gastrointestinal: no symptoms reported Genitourinary: see HPI Musculoskeletal: no symptoms reported Skin: see HPI Psychiatric/Neurological: No Symptoms Reported Hematologic/Lymphatic: No Symptoms Reported Immunological/Allergic: no symptoms reported Past Hpbwyux-Xfrtwt-Lawnln Hx Patient Social History Alcohol Use: Occasionally Uses Drug of Choice: MARIJUANA - LAST USE 03/23/21 Smoking Status: Current Everyday Smoker Type Used: Cigarettes 2nd Hand Smoke Exposure: Yes Recent Infectious Disease Expo: No Recent Hopitalizations: Yes (BLADDER SLING) Seasonal Allergies Seasonal Allergies: No Past Medical History Surgeries: Yes (BACK SX, BILAT CTR; BILAT KNEE; PARTIAL HYST- 1 OVARY &CERVIX REMAIN ) Adenoidectomy, Hysterectomy, Orthopedic, Tonsillectomy, Tubal Ligation Respiratory: No Cardiac: No Neurological: Yes ("DRILLED A SCREW TOO CLOSE TO A NERVE" "MY HANDS QUIT WORKING") Neuropathy Reproductive Disorders: No Female Reproductive Disorders: Denies 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 0.0oz. [id number]; 38.00 BMI Method:Stated General Appearance: No Apparent Distress, WD/WN Eyes: Bilateral Eye Normal Inspection, Bilateral Eye PERRL, Bilateral Eye EOMI HEENT: PERRL/EOMI, Normal ENT Inspection, Pharynx Normal, Moist Mucous Membranes Neck: Full Range of Motion, Normal Inspection, Non Tender Respiratory: Chest Non Tender, Lungs Clear, Normal Breath Sounds, No Accessory Muscle Use, No Respiratory Distress Cardiovascular: Regular Rate, Rhythm, No Edema, Normal Peripheral Pulses Gastrointestinal: Normal Bowel Sounds, Non Tender, Soft, Other (Diffuse purplish bruising over abdomen distal to umbilicus. ) Back: Normal Inspection, No Vertebral Tenderness Extremity: Normal Capillary Refill, Normal Inspection, Normal Range of Motion, No Calf Tenderness Neurologic/Psychiatric: Alert, Oriented x3, No Motor/Sensory Deficits, Normal Mood/Affect Skin: Normal Color, Warm/Dry Progress/Results/Core Measures Suspected Sepsis Recent Fever Within 48 Hours: No Infection Criteria Present: None New/Unexplained Altered Menta: No Sepsis Screen: No Definite Risk SIRS Temperature: Pulse: 102 Respiratory Rate: 18 Laboratory Tests 04/01/21 18:17: White Blood Count 15.3H Blood Pressure 130 /109 Mean: 116 Laboratory Tests 04/01/21 18:17: Creatinine 0.84, Platelet Count 416H, Total Bilirubin 0.8 Results/Orders Lab Results Laboratory Tests Test 04/01/21 18:17 04/01/21 18:29 Range/Units White Blood Count 15.3 H 4.3-11.0 10^3/uL Red Blood Count 3.38 L 3.80-5.11 10^6/uL Hemoglobin 10.1 L 11.5-16.0 g/dL Hematocrit 32 L 35-52 % Mean Corpuscular Volume 94 80-99 fL Mean Corpuscular Hemoglobin 30 25-34 pg Mean Corpuscular Hemoglobin Concent 32 32-36 g/dL Red Cell Distribution Width 15.9 H 10.0-14.5 % Platelet Count 416 H 130-400 10^3/uL Mean Platelet Volume 10.2 9.0-12.2 fL Immature Granulocyte % (Auto) 1 % Neutrophils (%) (Auto) 62 42-75 % Lymphocytes (%) (Auto) 28 12-44 % Monocytes (%) (Auto) 5 0-12 % Eosinophils (%) (Auto) 3 0-10 % Basophils (%) (Auto) 1 0-10 % Neutrophils # (Auto) 9.5 H 1.8-7.8 10^3/uL Lymphocytes # (Auto) 4.4 H 1.0-4.0 10^3/uL Monocytes # (Auto) 0.8 0.0-1.0 10^3/uL Eosinophils # (Auto) 0.4 H 0.0-0.3 10^3/uL Basophils # (Auto) 0.1 0.0-0.1 10^3/uL Immature Granulocyte # (Auto) 0.2 H 0.0-0.1 10^3/uL Neutrophils % (Manual) 67 % Lymphocytes % (Manual) 27 % Monocytes % (Manual) 4 % Eosinophils % (Manual) 2 % Basophils % (Manual) 0 % Band Neutrophils 0 % Blood Morphology Comment NORMAL Sodium Level 137 135-145 MMOL/L Potassium Level 4.1 3.6-5.0 MMOL/L Chloride Level 101 98-107 MMOL/L Carbon Dioxide Level 22 21-32 MMOL/L Anion Gap 14 5-14 MMOL/L Blood Urea Nitrogen 8 7-18 MG/DL Creatinine 0.84 0.60-1.30 MG/DL Estimat Glomerular Filtration Rate > 60 BUN/Creatinine Ratio 10 Glucose Level 372 H 70-105 MG/DL Calcium Level 9.8 8.5-10.1 MG/DL Corrected Calcium 9.5 8.5-10.1 MG/DL Total Bilirubin 0.8 0.1-1.0 MG/DL Aspartate Amino Transf (AST/SGOT) 15 5-34 U/L Alanine Aminotransferase (ALT/SGPT) 15 0-55 U/L Alkaline Phosphatase 128 40-136 U/L Total Protein 8.0 6.4-8.2 GM/DL Albumin 4.4 3.2-4.5 GM/DL Urine Color YELLOW Urine Clarity CLEAR Urine pH 6.0 5-9 Urine Specific [place] 1.015 L 1.016-1.022 Urine Protein NEGATIVE NEGATIVE Urine Glucose (UA) 3+ H NEGATIVE Urine Ketones NEGATIVE NEGATIVE Urine Nitrite NEGATIVE NEGATIVE Urine Bilirubin NEGATIVE NEGATIVE Urine Urobilinogen 0.2 < = 1.0 MG/DL Urine Leukocyte Esterase NEGATIVE NEGATIVE Urine RBC (Auto) 3+ H NEGATIVE Urine RBC 10-25 H /HPF Urine WBC 0-2 /HPF Urine Squamous Epithelial Cells 0-2 /HPF Urine Crystals NONE /LPF Urine Bacteria NEGATIVE /HPF Urine Casts NONE /LPF Urine Mucus NEGATIVE /LPF Urine Culture Indicated NO My Orders Orders - ISSA HAWK DESIGN EDITOR Ua Culture If Indicated (04/01/21 18:06) Cbc With Automated Diff (04/01/21 18:09) Ed Iv/Invasive Line Start (04/01/21 18:09) Comprehensive Metabolic Panel (04/01/21 18:09) Manual Differential (04/01/21 18:17) Ct Abdomen/Pelvis W (04/01/21 18:26) Iohexol Injection (Omnipaque 350 Mg/Ml 1 (04/01/21 18:45) Di Iv Start (Assessment) .IV start (04/01/21 18:40) Received Contrast (Hold Metformin- Contr (04/01/21 18:45) Sodium Chloride Flush (Catheter Flush Sy (04/01/21 18:45) Ns (Ivpb) (Sodium Chloride 0.9% Ivpb Bag (04/01/21 18:45) Medications Given in ED Current Medications Medications Dose Ordered Sig/Eric Route Start Time Stop Time Status Last Admin Dose Admin Iohexol 100 ml ONCE ONCE IV 04/01/21 18:45 04/01/21 18:46 DC 04/01/21 19:04 100 ML Sodium Chloride 10 ml NEEDED PRN IV 04/01/21 18:45 04/01/21 19:04 10 ML Sodium Chloride 100 ml ONCE ONCE IV 04/01/21 18:45 04/01/21 18:46 DC 04/01/21 19:04 80 ML Vital Signs/I&O 04/01/21 18:10 Temp 36.6 Pulse 102 Resp 18 B/P (MAP) 130/109 (116) Pulse Ox 98 Capillary Refill : Less Than 3 Seconds Blood Pressure Mean: 116 Progress Note : Progress Note Patient examined and in no acute distress. She has no pain, no systemic symptoms. States that when she called Dr. Greco's office and spoke to the nurse the nurse told her that the bruising was common and gravity will cause the blood to pool and collect, patient states she called the "bullshit card". Discussed with her that we can check labs to evaluate her hemoglobin as she was pretty anemic post procedure. Additionally will check for any infectious sources any active bleeding on exam. Orders placed for CT abdomen pelvis with contrast to evaluate for any active bleeding. Reviewed plan with her she is agreeable to plan. Departure Impression Primary Impression: Status post cervicectomy Additional Impressions: Bruising Hematuria Disposition: HOME, SELF-CARE Condition: Stable Departure-Patient Inst. Decision time for Depature: 19:51 Referrals: [facility] (PCP) Primary Care Physician VANESSA GAONA APRN (Family) Primary Care Physician Patient Instructions: Blood in Urine (Hematuria), Adult ED Add. Discharge Instructions: Plan: 1. Keep follow up with Dr. Duron on Tuesday as previously scheduled. 2. Return to ER if you have any abnormal or heaving bleeding. 3. Return for any new, concerning, or worsening symptoms. 4. Continue previous discharge instruction post procedure. All discharge instructions reviewed with patient and/or family. Voiced understanding. ISSA HAWK DESIGN EDITOR Apr 01, 2021 18:30
[2021-04-01 18:34] LABS: ALBUMIN 4.4 GM/DL (3.2-4.5)
[2021-04-01 18:35] LABS: CHLORIDE 101 MMOL/L (98-107); POTASSIUM 4.1 MMOL/L (3.6-5.0); SODIUM 137 MMOL/L (135-145)
[2021-04-01 18:36] LABS: CALCIUM 9.8 MG/DL (8.5-10.1)
[2021-04-01 18:37] LABS: GLUCOSE 372 MG/DL (70-105)
[2021-04-01 18:38] LABS: CARBON DIOXIDE 22 MMOL/L (21-32)
[2021-04-01 18:39] LABS: BILIRUBIN,TOTAL 0.8 MG/DL (0.1-1.0)
[2021-04-01 18:40] LABS: ALKALINE PHOSPHATASE 128 U/L (40-136)
[2021-04-01 18:41] LABS: BILIRUBIN,URINE NEGATIVE (NEGATIVE); CLARITY,URINE CLEAR; COLOR,URINE YELLOW; GLUCOSE, URINE (UA) 3+ (NEGATIVE); KETONES,URINE NEGATIVE (NEGATIVE); LEUKOCYTE ESTERASE ,URINE NEGATIVE (NEGATIVE); NITRITE,URINE NEGATIVE (NEGATIVE); PROTEIN,URINE NEGATIVE (NEGATIVE)
[2021-04-01 18:41] LABS: CREATININE SERUM 0.84 MG/DL (0.60-1.30); GFR ESTIMATED > 60
[2021-04-01 18:42] LABS: BUN/CREATININE RATIO 10
[2021-04-01 18:43] LABS: ALANINE AMINOTRANSFERASE 15 U/L (0-55)
[2021-04-01 18:44] LABS: BAND NEUTROPHILS 0 %; EOSINOPHILS % (MANUAL) 2 %; LYMPHOCYTES % (MANUAL) 27 %; MONOCYTES % (MANUAL) 4 %; NEUTROPHILS % (MANUAL) 67 %
[2021-04-01 18:45] LABS: BASOPHILS % (MANUAL) 0 %; RBC MORPH NORMAL
[2021-04-01] MEDS ORDERED: IOHEXOL 350 MG/ML 100 ML (OMNIPAQUE 350) VIAL IV ONE (18:45)
[2021-04-01] MEDS ORDERED: NS 100 ML (IVPB) BAG IV ONE (18:45)
[2021-04-01] MEDS ORDERED: HOLD METFORMIN - RECEIVED CONTRAST 20 ML VIAL IV SCH (18:45)
[2021-04-01] MEDS ORDERED: CATHETER FLUSH 10 ML SYR IV PRN (18:45)
[2021-04-01 18:47] LABS: BACTERIA,URINE NEGATIVE /HPF; SQUAMOUS EPITHELIAL CELL,UR 0-2 /HPF; WBC,URINE 0-2 /HPF
--- NOTE | 2021-04-01 19:23 | Diagnostic Imaging Report ---
PROCEDURE: CT abdomen and pelvis with contrast. TECHNIQUE: Multiple contiguous axial images were obtained through the abdomen and pelvis after administration of intravenous contrast. Auto Exposure Controls were utilized during the CT exam to meet ALARA standards for radiation dose reduction. All CT scans use one or more of the following dose optimizing techniques: automated exposure control, MA and/or KvP adjustment based on patient size and exam type or iterative reconstruction. INDICATION: Vaginal bleeding, abdominal bruising, patient has one ovary. Surgery on 03/24/2021. FINDINGS: The lung bases are clear. The gallbladder is partially contracted and appears unremarkable. The liver, spleen, pancreas, adrenal glands and kidneys are normal. No hydronephrosis is present. There is a normal appendix. The uterus and adnexal structures appear unremarkable. Urinary bladder appears normal. No ascites, free air or loculated fluid collections are present. Bowel loops demonstrate no obstruction or inflammatory changes. There is some edema within the subcutaneous tissue below the umbilicus. No hernias or fluid collections are present. Postoperative changes present to the spine. No fluid collections are seen around this. No fractures or evidence of hardware loosening is present. IMPRESSION: There is some subcutaneous edema in the lower abdominal wall. No fluid collections are present. Dictated by: Dictated on workstation # [id number]
[2021-04-01 19:54] VITALS: BP 120/93
== END 2021-04-01 19:57 | disposition home or self-care (01) ==
LOC: EDUNIT# 18:03 → ER 18:05
DX: S30.1XXA Contusion of abdominal wall, initial encounter (principal); R31.9 Hematuria, unspecified; G89.29 Other chronic pain; M54.9 Dorsalgia, unspecified; E11.40 Type 2 diabetes mellitus with diabetic neuropathy, unspecified; F41.9 Anxiety disorder, unspecified; F43.10 Post-traumatic stress disorder, unspecified; F20.9 Schizophrenia, unspecified; F32.9 Major depressive disorder, single episode, unspecified; F17.210 Nicotine dependence, cigarettes, uncomplicated; Z90.712 Acquired absence of cervix with remaining uterus; Z98.51 Tubal ligation status; Z90.710 Acquired absence of both cervix and uterus; Z79.4 Long term (current) use of insulin; Z79.899 Other long term (current) drug therapy; X58.XXXA Exposure to other specified factors, initial encounter
CPT/HCPCS: 36415; 74177; 80053; 81000; 85007; 85027

== ENCOUNTER 2021-04-26 21:05 | Emergency (ER) | payer MEDICAID ==
[~2021-04-26] VITALS: Ht 165 cm; Wt 104.0 kg
[~2021-04-26 21:05] MED LIST changes: -SULF1TAB35 PO; +SULF1TAB38 PO
--- NOTE | 2021-04-26 21:58 | ED GU-Female ---
General Chief Complaint: - Urinary Stated Complaint: POST OP/BLEEDING/LOOSE TISSUE Nursing Triage Note: Patient reports having blood when wiping with 'chunks of skin' Source: patient Exam Limitations: no limitations History of Present Illness Date Seen by Provider: Apr 26, 2021 Time Seen by Provider: 21:30 Initial Comments Patient is a 36-year-old female who presents to the emergency department with a chief complaint of vaginal bleeding. Patient states that she is 33 days post bladder left and cervix removal. She states Dr. Duron did her surgery. She says that she has not quit bleeding since the time of her surgery and is quite frustrated with it. She describes brownish blood on tissue paper that she keeps in her underwear. She denies any abdominal cramping. She is insulin-dependent diabetic. Reports that her A1c's have been steadily declining. No fevers. She states no trauma/sex. She was concerned tonight because she feels like she passed some "tissue". All other review of systems reviewed and negative except as stated. Timing/Duration: constant Location: vaginal Radiation: none Activities at Onset: none Sexual Vincent History: not active Associated Symptoms: denies symptoms Allergies and Home Medications Allergies Coded Allergies: NKANo Known Allergies (Unverified Allergy, Mild, 10/18/09) Home Medications Acetaminophen 500 Mg Tablet, 1,000 MG PO Q8H Prescribed by: NESTOR DURON on 03/25/21 0810 Canagliflozin 100 Mg Tablet, 100 MG PO DAILY Prescribed by: NESTOR DURON on 03/25/21 1323 Ibuprofen 800 Mg Tablet, 600 MG PO Q6H Prescribed by: NESTOR DURON on 03/25/21 0810 Insulin Glargine,Hum.rec.anlog 100 Unit/1 Ml Vial, 10 UNIT SQ BID Prescribed by: NESTOR DURON on 03/25/21 1322 Metformin HCl 1,000 Mg Tablet, 1,000 MG PO BID, (Reported) Multivitamin 1 Each Tablet, 1 EACH PO DAILY, (Reported) Quetiapine Fumarate 300 Mg Tablet, 750 MG PO HS, (Reported) Patient Home Medication List Home Medication List Reviewed: Yes Review of Systems Review of Systems Constitutional: see HPI EENTM: no symptoms reported Respiratory: no symptoms reported Cardiovascular: no symptoms reported Gastrointestinal: no symptoms reported Genitourinary: other (Vaginal discharge that is brownish bloody) : No Musculoskeletal: no symptoms reported Skin: no symptoms reported All Other Systemes Reviewed Negative Unless Noted: Yes Past Ruiqjlj-Uvotdk-Sqwdmy Hx Seasonal Allergies Seasonal Allergies: No Past Medical History Surgeries: Yes (BACK SX, BILAT CTR; BILAT KNEE; PARTIAL HYST- 1 OVARY &CERVIX REMAIN ) Adenoidectomy, Hysterectomy, Orthopedic, Tonsillectomy, Tubal Ligation Respiratory: No Cardiac: No Neurological: Yes ("DRILLED A SCREW TOO CLOSE TO A NERVE" "MY HANDS QUIT WORKING") Neuropathy Reproductive Disorders: No 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 0.0oz. 119.691278xg; 38.00 BMI Method:Stated General Appearance: WD/WN, no apparent distress Cardiovascular: regular rate, rhythm Respiratory: no respiratory distress, no accessory muscle use Gastrointestinal: non tender, soft Pelvic: normal external exam, other (Visualized the suture line on speculum examination. It appears intact. She does have serous drainage in the vault that is brownish-yellow. Bimanual exam is nontender. I do not feel any defects in the suture line. No active hemorrhage is identified. No foul smells. Swabs were taken for culture.) Extremities: normal inspection, no pedal edema Neurologic/Psychiatric: alert, normal mood/affect, oriented x 3 Progress/Results/Core Measures Suspected Sepsis SIRS Temperature: Pulse: 96 Respiratory Rate: 18 Blood Pressure 149 /100 Mean: 116 Results/Orders Vital Signs/I&O 04/26/21 21:23 Temp 36.6 Pulse 96 Resp 18 B/P (MAP) 149/100 (116) Pulse Ox 97 Capillary Refill : Blood Pressure Mean: 116 Departure Impression Primary Impression: Seroma complicating a procedure Disposition: 01 HOME, SELF-CARE Condition: Stable Departure-Patient Inst. Decision time for Depature: 21:56 Referrals: [facility] (PCP) Primary Care Physician VANESSA GAONA APRN (Family) Primary Care Physician NESTOR DURON DO Add. Discharge Instructions: I believe you probably have what is called a seroma along the suture line in your vagina. This may continue to ooze a bloody yellow fluid. Please call Dr. Duron's office tomorrow for a follow-up appointment. Come back to the emergency department if you develop fever, bright red blood from your vagina, abdominal pain or cramping or any other emergent concerning symptoms. We have taken a culture of the fluid this evening and these results will come back in a couple of days. VISHAL CHAPMAN MD Apr 26, 2021 21:58
[2021-04-26 22:02] VITALS: BP 171/94
== END 2021-04-26 22:02 | disposition home or self-care (01) ==
LOC: EDUNIT# 21:05 → ER 21:07
DX: N99.842 Postprocedural seroma of a genitourinary system organ or structure following a genitourinary system procedure (principal); E11.9 Type 2 diabetes mellitus without complications; F32.9 Major depressive disorder, single episode, unspecified; F20.9 Schizophrenia, unspecified; Z79.84 Long term (current) use of oral hypoglycemic drugs; Z79.899 Other long term (current) drug therapy
CPT/HCPCS: 99281